=== PATIENT | male | born 1950 | race Caucasian/White ===

== ENCOUNTER 2023-06-02 09:45 | Outpatient (RCR) | payer MEDICARE, OTHER, SELFPAY ==
[2023-05-19 10:19] VITALS: BP 169/68; PULSE 92; RESP 18; TEMP 36.2; BMI 22.1
--- NOTE | 2023-05-19 14:38 | PCM.WC.HP ---
History of Present Illness Date of Service: 05/19/23 Chief Complaint: Bilateral lower extremity swelling and edema; profound bilateral lower extremity exfoliative venous stasis dermatitis History of Wound: This is a 72-year-old male who presents with a long history of swelling and edema in his lower extremities. He has developed severe exfoliative venous stasis dermatitis in his lower extremities bilaterally. Sloughing epidermis is noted in the gaiter areas bilaterally. There is disagreement between the patient and his as to how long these profound skin changes have been occurring, though it appears to be of at least several months. Patient is not active. He sleeps in a chair at night. He has a known history of pulmonary embolism in the past, for which she was on long-term systemic anticoagulation therapy with Eliquis. However, he now remains only on aspirin daily. He has undergone no prior lower extremity venous procedures in the past. [facility] Medical History Edema of left lower leg Edema of right lower leg GERD (gastroesophageal reflux disease) Hemoptysis History of pulmonary embolism History of tobacco use HTN (hypertension) Hyperlipidemia Lung mass Morbid obesity Osteoarthritis Pneumonia Pulmonary emboli SOB (shortness of breath) Spinal stenosis Swelling of left lower extremity Swelling of right lower extremity Venous stasis dermatitis of both lower extremities Home Medications albuterol sulfate 90 mcg/actuation aerosol inhaler 1 - 2 puff inhalation Q4H PRN PRN Sob &/Or Wheezing 12/29/16 [History Last Taken Unknown] aspirin 81 mg chewable tablet 81 mg PO DAILY 12/29/16 [History Last Taken 12/29/16] dicyclomine 20 mg tablet 10 mg PO QHS 12/29/16 [History Last Taken 12/29/16] zisjntek-wbf-sbvfr acid 0.4 mg-lycopene 300 mcg-lutein 250 mcg tablet 1 ea PO DAILY 12/29/16 [History Last Taken 12/29/16] oxycodone 15 mg tablet,crush resistant,extended release 12 hr 15 mg PO Q8H 12/29/16 [History Last Taken 12/29/16] gabapentin 300 mg capsule 300 mg PO TID 12/31/16 [Rx Last Taken Unknown] benazepril 40 mg tablet 40 mg PO DAILY 05/19/23 [History Last Taken Unknown] chlorthalidone 25 mg tablet 25 mg PO DAILY 05/19/23 [History Last Taken Unknown] Allergy/AdvReac Type Severity Reaction Status Date / Time morphine [From Embeda] Allergy Other Verified 05/19/23 12:53 naltrexone [From Embeda] Allergy Other Verified 05/19/23 12:53 pregabalin [From Lyrica] Allergy Unknown Verified 05/19/23 12:53 acetaminophen [From Percocet] AdvReac Upset Verified 05/19/23 12:53 Stomach oxycodone [From Percocet] AdvReac Upset Verified 05/19/23 12:53 Stomach Family History Unknown No problems noted. Surgical History H/O hernia repair History of appendectomy History of bilateral inguinal hernia repair History of right knee surgery R knee and leg surgery Social History Smoking Status: Former smoker quit date: 06/15/02 pack-years: 60 Electronic Cigarette Use: not used second hand exposure: Yes alcohol intake: never substance use type: does not use Vital Signs Vital Signs Vital Signs: 05/19/23 10:19 Temperature 97.1 F L Temperature Source Temporal Pulse Rate 92 Respiratory Rate 18 Blood Pressure 169/68 H Blood Pressure Mean 101 Blood Pressure Source Monitor Blood Pressure Position Sitting Blood Pressure Location Left Arm Oxygen Delivery Method Room Air Weight Weight: 129 lb Body Mass Index (BMI) 22.1 Physical Exam Const alert, oriented x3, no apparent distress and average body habitus General Appearance: cooperative, comfortable, well developed and disheveled Orientation / Consciousness: awake, oriented to person, oriented to place and oriented to time HEENT normocephalic and head/scalp atraumatic Head and Scalp: normal to inspection, normocephalic and atraumatic External Ear: external ears normal Eyes PERRL and EOMs intact bilaterally General Eye: normal appearance of both eyes Resp normal respiratory effort, normal air movement, no retractions and no use of accessory muscles Effort and Inspection: able to speak in complete sentences Extremity no calf tenderness General Extremity: Negative for clubbing or cyanosis Skin Wound Narrative: There are no frankly open wounds or ulcerations in the patient's lower extremities. However, severe exfoliative venous stasis dermatitis is noted in the gaiter areas bilaterally. Large areas of sloughing epidermis are noted in the gaiter areas bilaterally. Moderate swelling and edema are also noted in the lower extremities bilaterally. There is no sign of infection or cellulitis. Toenails are overgrown Neuro oriented x3, CN's II-XII intact bilaterally, moves all extremities and no focal motor deficits Sensorium / Orientation: awake, alert, oriented to person, oriented to place and oriented to time Psych Appearance: grossly normal and appropriate Attitude: calm Activity / Motor Behavior: appropriate eye contact Speech: normal speech Mood & Affect: euthymic mood Thought Process: normal thought process Thought Content: normal thought content Attention / Concentration: attention grossly intact Debridement Note Debridement Note No debridement was completed: No debridement was completed today Post-Debridement Measurements and Additional Note: Post-Debridement Measurements/Treatment - Nurse 1 - General Ulcer Assessment Start: 05/19/23 10:19 Freq: Status: Active Protocol: ASIM.DEE DEE Activity Type Activity Date Activity User E-sign Co-sign Detail Recorded Client Recorded Date Recorded By Document 05/19/23 10:19 Desktop 05/19/23 10:46 05/19/23 10:19 - Today's Visit Information Type of service Initial Visit Arrival Mode Ambulatory Transfer Assistance None Accompanied by Patient Identification Verified (Name & Yes ) Patient Requires Transmission-Based No Precautions Safety Precautions NA Height and Weight Height 5 ft 4 in Weight 129 lb Weight in Pounds 129.0 lbs Weight Measurement Method Stated by Patient Body Mass Index (BMI) 22.1 BMI Classification Normal BSA - Efren 1.62 Vital Signs Temperature (97.8 F-99.1 F) 97.1 F L Temperature Source Temporal Pulse Rate (60-100) 92 Pulse Location Monitor Respiratory Rate (12-18) 18 Respiratory rate source Observation Oxygen Delivery Method Room Air Blood Pressure (90/60-120/80) 169/68 H Blood Pressure Mean 101 Source Monitor Position Sitting Blood Pressure Location Left Arm History Since Last Visit- (Skip if this is Patient's initial visit) Left Footwear Regular Shoe Right Footwear Regular Shoe Pain Scale: 0-10 Numeric Is Patient Pain Free? Yes Neuropathy Assessment Feet - Top Side and Bottom <Entered> (a) Communication Assessment Preferred language Bulgarian Able to Read Yes Able to Write Yes Communication Tools None Right Hearing Abillity Normal Left Hearing Abillity Normal Visual Assistive Devices Glasses Teaching Assessment Preferences Verbal,Written Barriers to Learning Knowledge Deficit Readiness To Learn Poor Willingness to Engage in Self Management Low Activies Readiness to Engage in Self Management Low Activities Anxiety Level Anxious Cooperation Uncooperative Perception Coherent Interest in Health Problem Uninterested Education Importance Denies Need Smoking Status Former smoker Is Patient Diabetic No Functional Assessment Recent Decline in Ability to Perform Denies Any Declines Culture/Synagogue/Transportation Sales Consultant Cultural/Synagogue Needs that may affect No Treatment Plan Would you allow our hospital customer service operator to No meet you for the purpose of spiritual/ emotional support? Transportation Sales Consultant to contact place of scientology No Teaching: Wound Center *Welcome to the Wound Center -Person Taught Patient (a) 1 - + WC - Nurse 1 - General Ulcer Measurement Start: 05/19/23 10:19 Freq: Status: Active Protocol: Activity Type Activity Date Activity User E-sign Co-sign Detail Recorded Client Recorded Date Recorded By Document 05/19/23 10:19 MW Desktop 05/19/23 10:46 MW 05/19/23 10:19 Wound Center Nurse 1 #2 LLE -Current Size (cm) - Length 0.1 -Current Size (cm) - Width 0.1 -Current Size (cm) - Depth 0.1 -Total Square Cm 0.01 -Photo Taken Yes -Exudate Amt Medium -Exudate Type Serosanguineous -Wound Margin Indistinct, Non -Visible -Granulation Amt Medium (34-66%) -Granulation Quality Crouse,Red -Necrosis Amt Medium (34-66%) -Necrotic Tissue Type Adherent Slough -Structure Exposed N/A -Texture (Peggy-wound Skin Appearance) Scarring -Moisture (Peggy-wound Skin Appearance) Dry/Scaly -Color (Peggy-wound Skin Appearance) Hemosiderin Staining -Temperature (Peggy-wound Skin No Abnormality Appearance) (Pt Warm) -Tenderness on Palpation (Peggy-wound No Skin Appearance) -Ulcer Cleansing Soap and Water -Foul Odor after Cleansing No #1 RLE -Current Size (cm) - Length 0.1 -Current Size (cm) - Width 0.1 -Current Size (cm) - Depth 0.1 -Total Square Cm 0.01 -Photo Taken Yes -Exudate Amt Medium -Exudate Type Serosanguineous -Wound Margin Indistinct, Non -Visible -Granulation Amt Medium (34-66%) -Granulation Quality Crouse,Red -Necrosis Amt Medium (34-66%) -Necrotic Tissue Type Adherent Slough -Texture (Peggy-wound Skin Appearance) Scarring -Moisture (Peggy-wound Skin Appearance) Dry/Scaly -Color (Peggy-wound Skin Appearance) Erythema, Hemosiderin Staining -Temperature (Peggy-wound Skin No Abnormality Appearance) (Pt Warm) -Ulcer Cleansing Soap and Water -Foul Odor after Cleansing No Right Calf (cm) 38.5 Right Ankle (cm) 26 Left Calf (cm) 37 Left Ankle (cm) 27.5 WC - Nurse 3 - General Ulcer D/C NN Start: 05/19/23 10:19 Freq: Status: Active Protocol: Activity Type Activity Date Activity User E-sign Co-sign Detail Recorded Client Recorded Date Recorded By Document 05/19/23 11:22 MW Desktop 05/19/23 11:24 MW Edit Result 05/19/23 11:22 MW (1) Desktop 05/19/23 11:30 MW (1) Notes: => Unna Boots applied per Daniela [place] WORK TICKET DISTRIBUTOR. Patient tolerated well. 05/19/23 11:22 Wound Care Center Nurse 3 #2 LLE -Other Covering unna boot #1 RLE -Other Covering unna boot Bilateral LE -Lotion applied to leg before No compression wrap -Multi-Layered Wrap Application Unna Boot - Bilateral ($) Treatment Response Procedure Tolerated Well Pain Scale: 0-10 Numeric Is Patient Pain Free? Yes Teaching: Wound Center Compression Wraps & Stockings -Person Taught Patient,Family -Teaching Method Discussion, Demonstration -Response to teaching Verbalize understanding Dressing Your Wound -Person Taught Patient,Family -Teaching Method Discussion, Demonstration -Response to teaching Verbalize understanding WC - Visit Discharge Discharge Condition Stable Ambulatory Status Ambulatory,Cane Transportation Private Auto Accompanied by Medication Reconcilliation completed & No provided to patient/care provider Clinical Summary of Care Provided Yes Notes: Unna Boots applied per Daniela [place] WORK TICKET DISTRIBUTOR. Patient tolerated well. Assessment/Plan Assessment/Plan (1) Venous stasis dermatitis of both lower extremities: CODE(S): I87.2 - Venous insufficiency (chronic) (peripheral) (2) Swelling of right lower extremity: CODE(S): M79.89 - Other specified soft tissue disorders (3) Swelling of left lower extremity: CODE(S): M79.89 - Other specified soft tissue disorders (4) Edema of right lower leg: CODE(S): R60.0 - Localized edema (5) Edema of left lower leg: CODE(S): R60.0 - Localized edema (6) HTN (hypertension): CODE(S): I10 - Essential (primary) hypertension (7) History of tobacco use: CODE(S): Z87.891 - Personal history of nicotine dependence (8) History of pulmonary embolism: CODE(S): Z86.711 - Personal history of pulmonary embolism (9) History of bilateral inguinal hernia repair: CODE(S): Z98.890 - Other specified postprocedural states; Z87.19 - Personal history of other diseases of the digestive system (10) History of right knee surgery: CODE(S): Z98.890 - Other specified postprocedural states (11) Osteoarthritis: CODE(S): M19.90 - Unspecified osteoarthritis, unspecified site (12) GERD (gastroesophageal reflux disease): CODE(S): K21.9 - Gastro-esophageal reflux disease without esophagitis (13) Hyperlipidemia: CODE(S): E78.5 - Hyperlipidemia, unspecified (14) Spinal stenosis: CODE(S): M48.00 - Spinal stenosis, site unspecified PLAN: Plan This is a 72-year-old male who is of relatively normal body habitus. The patient presents with severe exfoliative venous stasis dermatitis in the gaiter areas bilaterally. There do not appear to be any frankly open wounds or ulcerations at this time. Moderate swelling and edema are noted in the lower extremities bilaterally. A lengthy discussion has been undertaken with the patient and his with regard to the appropriate measures to be implemented relative to his lower extremity manifestations. The patient has been encouraged to sleep on a flat surface at night. Sleeping in a chair has been discouraged. Prolonged idle sitting has been discouraged. The patient has been encouraged to elevate his lower extremities is much as possible, even during daytime hours. Elevation is to be to heart level, or higher. Ambulation and activity has been encouraged. We are to implement compression to the lower extremities by means of Unna boots, which we applied today, and changed twice weekly. It is anticipated that both the compression and the topical zinc oxide will be of benefit in management of the patient's swelling, edema, and exfoliative dermatitis. The patient is somewhat resistant and obstinate with regard to the use of compression in his lower extremities, as well as the need for leg elevation. It is anticipated that the benefits of these measures will be dependent upon his degree of compliance. The patient is to return in 1 week for reassessment. Total time: 50 minutes
[2023-05-22 08:44] VITALS: BP 178/61; PULSE 74; RESP 18; TEMP 36.3; BMI 22.1
[2023-05-26 09:59] VITALS: BP 178/80; PULSE 80; BMI 22.1
--- NOTE | 2023-05-26 10:46 | HP.PCM_ITS ---
History of Present Illness Date of Service: 05/26/23 Chief Complaint: Bilateral lower extremity swelling and edema; lymphedema; profound bilateral lower extremity exfoliative venous stasis dermatitis History of Wound: This is a 72-year-old male who presented with a long history of swelling, edema, and lymphedema in his lower extremities. He has developed severe exfoliative venous stasis dermatitis in his lower extremities bilaterally. Sloughing epidermis was noted in the gaiter areas bilaterally. There is disagreement between the patient and his as to how long these profound skin changes have been occurring, though it appears to be of at least several months. The patient is not active. His ambulation is limited, and he requires the use of a cane. He sleeps in a chair at night. He has a known history of pulmonary embolism in the past, for which she was on long-term systemic anticoagulation therapy with Eliquis. However, he now remains only on aspirin daily. He has undergone no prior lower extremity venous procedures in the past. [facility] Medical History Edema of left lower leg Edema of right lower leg GERD (gastroesophageal reflux disease) Hemoptysis History of pulmonary embolism History of tobacco use HTN (hypertension) Hyperlipidemia Lung mass Lymphedema Morbid obesity Osteoarthritis Pneumonia Pulmonary emboli SOB (shortness of breath) Spinal stenosis Swelling of left lower extremity Swelling of right lower extremity Venous stasis dermatitis of both lower extremities Home Medications albuterol sulfate 90 mcg/actuation aerosol inhaler 1 - 2 puff inhalation Q4H PRN PRN Sob &/Or Wheezing 12/29/16 [History Last Taken Unknown] aspirin 81 mg chewable tablet 81 mg PO DAILY 12/29/16 [History Last Taken 12/29/16] dicyclomine 20 mg tablet 10 mg PO QHS 12/29/16 [History Last Taken 12/29/16] kpykkilj-rex-wjlli acid 0.4 mg-lycopene 300 mcg-lutein 250 mcg tablet 1 ea PO DAILY 12/29/16 [History Last Taken 12/29/16] oxycodone 15 mg tablet,crush resistant,extended release 12 hr 15 mg PO Q8H 12/29/16 [History Last Taken 12/29/16] gabapentin 300 mg capsule 300 mg PO TID 12/31/16 [Rx Last Taken Unknown] benazepril 40 mg tablet 40 mg PO DAILY 05/19/23 [History Last Taken Unknown] chlorthalidone 25 mg tablet 25 mg PO DAILY 05/19/23 [History Last Taken Unknown] Allergy/AdvReac Type Severity Reaction Status Date / Time morphine [From Embeda] Allergy Other Verified 05/19/23 12:53 naltrexone [From Embeda] Allergy Other Verified 05/19/23 12:53 pregabalin [From Lyrica] Allergy Unknown Verified 05/19/23 12:53 acetaminophen [From Percocet] AdvReac Upset Verified 05/19/23 12:53 Stomach oxycodone [From Percocet] AdvReac Upset Verified 05/19/23 12:53 Stomach Family History Unknown No problems noted. Surgical History H/O hernia repair History of appendectomy History of bilateral inguinal hernia repair History of right knee surgery R knee and leg surgery Social History Smoking Status: Former smoker quit date: 06/15/02 pack-years: 60 Electronic Cigarette Use: not used second hand exposure: Yes alcohol intake: never substance use type: does not use Vital Signs Vital Signs Vital Signs: 05/26/23 09:59 Pulse Rate 80 Blood Pressure 178/80 H Blood Pressure Mean 112 Blood Pressure Source Monitor Blood Pressure Position Sitting Blood Pressure Location Left Arm Weight Weight: 129 lb Body Mass Index (BMI) 22.1 Physical Exam Const alert, oriented x3, no apparent distress and average body habitus General Appearance: cooperative, comfortable, well developed and disheveled Orientation / Consciousness: awake, oriented to person, oriented to place and oriented to time HEENT normocephalic and head/scalp atraumatic Head and Scalp: normal to inspection, normocephalic and atraumatic External Ear: external ears normal Eyes PERRL and EOMs intact bilaterally General Eye: normal appearance of both eyes Resp normal respiratory effort, normal air movement, no retractions and no use of accessory muscles Effort and Inspection: able to speak in complete sentences Extremity no calf tenderness General Extremity: Negative for clubbing or cyanosis Skin Wound Narrative: There are no frankly open wounds or ulcerations in the patient's lower extremities. However, severe exfoliative venous stasis dermatitis is noted in the gaiter areas bilaterally. It has slightly improved within the last week. Large areas of sloughing epidermis are noted in the gaiter areas bilaterally. Moderate swelling, edema, and lymphedema are also noted in the lower extremities bilaterally. A mild diffuse erythema is noted in the gaiter areas bilaterally. This appears to be inflammatory in nature, rather than cellulitic. However, this will be monitored serially. Toenails are overgrown bilaterally. Neuro oriented x3, CN's II-XII intact bilaterally, moves all extremities and no focal motor deficits Sensorium / Orientation: awake, alert, oriented to person, oriented to place and oriented to time Psych Appearance: grossly normal and appropriate Attitude: calm Activity / Motor Behavior: appropriate eye contact Speech: normal speech Mood & Affect: euthymic mood Thought Process: normal thought process Thought Content: normal thought content Attention / Concentration: attention grossly intact Debridement Note Debridement Note No debridement was completed: No debridement was completed today (There are no open wounds or ulcerations.) Post-Debridement Measurements and Additional Note: Post-Debridement Measurements/Treatment - Nurse 1 - General Ulcer Assessment Start: 05/19/23 10:19 Freq: Status: Active Protocol: .DEE DEE Activity Type Activity Date Activity User E-sign Co-sign Detail Recorded Client Recorded Date Recorded By Document 05/19/23 10:19 Desktop 05/19/23 10:46 MW Document 05/22/23 08:44 RB Desktop 05/22/23 08:47 RB Document 05/26/23 09:59 MT Desktop 05/26/23 10:01 FL 05/19/23 05/22/23 05/26/23 10:19 08:44 09:59 - Today's Visit Information Type of service Initial Visit Follow-up Visit Follow-up Visit (Physician/DIGITAL X RAY SERVICE ENGINEER (Physician/DIGITAL X RAY SERVICE ENGINEER ) ) Arrival Mode Ambulatory Ambulatory Ambulatory Transfer Assistance None None Accompanied by Patient Identification Verified (Name & Yes Yes ) Patient Requires Transmission-Based No No Precautions Safety Precautions NA Fall Prevention Height and Weight Height 5 ft 4 in Weight 129 lb Weight in Pounds 129.0 lbs Weight Measurement Method Stated by Patient Body Mass Index (BMI) 22.1 22.1 22.1 BMI Classification Normal Normal Normal BSA - Efren 1.62 Vital Signs Temperature (97.8 F-99.1 F) 97.1 F L 97.3 F L Temperature Source Temporal Temporal Pulse Rate (60-100) 92 74 80 Pulse Location Monitor Monitor Monitor Respiratory Rate (12-18) 18 18 Respiratory rate source Observation Observation Oxygen Delivery Method Room Air Blood Pressure (90/60-120/80) 169/68 H 178/61 H 178/80 H Blood Pressure Mean 101 100 112 Source Monitor Monitor Monitor Position Sitting Semi-Fowlers Sitting Blood Pressure Location Left Arm Left Arm Left Arm History Since Last Visit- (Skip if this is Patient's initial visit) Have you changed medications since your No last visit? Any new allergies or adverse reactions No Had a fall/change in ADL's that may No increase risk of falls Signs or symptoms of abuse and/or No neglect since last visit Have you been in the hospital since your No last visit? Has dressing in place as prescribed Yes Yes Has compression in place as prescribed Yes Yes Has offloadiing in place as prescribed No N/A Experienced any changes in pain level or No No management Left Footwear Regular Shoe Regular Shoe Right Footwear Regular Shoe Regular Shoe Pain Scale: 0-10 Numeric Is Patient Pain Free? Yes Yes Yes Neuropathy Assessment Feet - Top Side and Bottom <Entered> (a) Communication Assessment Preferred language Occitan Able to Read Yes Able to Write Yes Communication Tools None Right Hearing Abillity Normal Left Hearing Abillity Normal Visual Assistive Devices Glasses Teaching Assessment Preferences Verbal,Written Barriers to Learning Knowledge Deficit Readiness To Learn Poor Willingness to Engage in Self Management Low Activies Readiness to Engage in Self Management Low Activities Anxiety Level Anxious Cooperation Uncooperative Perception Coherent Interest in Health Problem Uninterested Education Importance Denies Need Smoking Status Former smoker Is Patient Diabetic No Functional Assessment Recent Decline in Ability to Perform Denies Any Declines Culture/Oriental Orthodox/Electric Tape Slitter Cultural/Oriental Orthodox Needs that may affect No Treatment Plan Would you allow our hospital registered travel nurse to No meet you for the purpose of spiritual/ emotional support? Electric Tape Slitter to contact place of judaism No Teaching: Wound Center *Welcome to the Wound Center -Person Taught Patient (a) 1 - + WC - Nurse 1 - General Ulcer Measurement Start: 05/19/23 10:19 Freq: Status: Active Protocol: Activity Type Activity Date Activity User E-sign Co-sign Detail Recorded Client Recorded Date Recorded By Document 05/19/23 10:19 MW Desktop 05/19/23 10:46 MW Document 05/22/23 08:44 RB Desktop 05/22/23 08:47 RB Document 05/26/23 09:59 MT Desktop 05/26/23 10:01 MT 05/19/23 05/22/23 05/26/23 10:19 08:44 09:59 Wound Center Nurse 1 #2 LLE -Current Size (cm) - Length 0.1 0.1 -Current Size (cm) - Width 0.1 0.1 -Current Size (cm) - Depth 0.1 0.1 -Total Square Cm 0.01 0.01 -Photo Taken Yes No -Tunneling No -Undermining/Tunneling No -Circular Undermining No -Exudate Amt Medium Medium -Exudate Type Serosanguineous Serosanguineous -Wound Margin Indistinct, Non Flat & Intact -Visible -Granulation Amt Medium (34-66%) Large (67-100%) -Granulation Quality Irvona,Red Pale,Irvona -Necrosis Amt Medium (34-66%) Small (1-33%) -Necrotic Tissue Type Adherent Slough Adherent Slough -Structure Exposed N/A -Texture (Peggy-wound Skin Appearance) Scarring Assessed, Localized Edema -Moisture (Peggy-wound Skin Appearance) Dry/Scaly Assessed,Not Assessed, Maceration -Color (Peggy-wound Skin Appearance) Hemosiderin Assessed, Staining Erythema, Hemosiderin Staining -Temperature (Peggy-wound Skin No Abnormality Hot Appearance) (Pt Warm) -Tenderness on Palpation (Peggy-wound No No Skin Appearance) -Ulcer Cleansing Soap and Water Soap and Water -Foul Odor after Cleansing No No -Anesthetic Used 4% Lidocaine Solution -Wound Comment(s) lower legs are red bilat. Dr. Davis notified. #1 RLE -Current Size (cm) - Length 0.1 0.1 -Current Size (cm) - Width 0.1 0.1 -Current Size (cm) - Depth 0.1 0.1 -Total Square Cm 0.01 0.01 -Photo Taken Yes -Exudate Amt Medium -Exudate Type Serosanguineous -Wound Margin Indistinct, Non -Visible -Granulation Amt Medium (34-66%) -Granulation Quality Irvona,Red -Necrosis Amt Medium (34-66%) -Necrotic Tissue Type Adherent Slough -Texture (Peggy-wound Skin Appearance) Scarring Assessed, Localized Edema -Moisture (Peggy-wound Skin Appearance) Dry/Scaly Maceration -Color (Peggy-wound Skin Appearance) Erythema, Assessed, Hemosiderin Erythema, Staining Hemosiderin Staining -Temperature (Peggy-wound Skin No Abnormality No Abnormality Appearance) (Pt Warm) (Pt Warm) -Tenderness on Palpation (Peggy-wound No Skin Appearance) -Ulcer Cleansing Soap and Water Soap and Water -Foul Odor after Cleansing No No -Anesthetic Used 4% Lidocaine Solution Lower Limb Edema Present Yes Right Calf (cm) 38.5 37 36.5 Right Ankle (cm) 26 27 25 Left Calf (cm) 37 34 36 Left Ankle (cm) 27.5 26.5 28 WC - Nurse 3 - General Ulcer D/C NN Start: 05/19/23 10:19 Freq: Status: Active Protocol: Activity Type Activity Date Activity User E-sign Co-sign Detail Recorded Client Recorded Date Recorded By Document 05/19/23 11:22 MW Desktop 05/19/23 11:24 MW Edit Result 05/19/23 11:22 MW (1) Desktop 05/19/23 11:30 MW Document 05/22/23 08:44 RB Desktop 05/22/23 08:47 RB Document 05/26/23 10:24 MT Desktop 05/26/23 10:39 MT (1) Notes: => Unna Boots applied per Daniela Miles LPN. Patient tolerated well. 05/19/23 05/22/23 05/26/23 11:22 08:44 10:24 Wound Care Center Nurse 3 #2 LLE -Other Covering unna boot #1 RLE -Other Covering unna boot Bilateral LE -Lotion applied to leg before No compression wrap -Multi-Layered Wrap Application Unna Boot - Unna Boot - Unna Boot - Bilateral ($) Bilateral ($) Bilateral ($) Treatment Response Procedure Procedure Tolerated Well Tolerated Well Vital Signs Temperature (97.8 F-99.1 F) 97.3 F L Temperature Source Temporal Pulse Rate (60-100) 74 Pulse Location Monitor Respiratory Rate (12-18) 18 Respiratory rate source Observation Blood Pressure (90/60-120/80) 178/61 H Blood Pressure Mean 100 Source Monitor Position Semi-Fowlers Blood Pressure Location Left Arm Pain Scale: 0-10 Numeric Is Patient Pain Free? Yes Yes No Teaching: Wound Center Compression Wraps & Stockings -Person Taught Patient,Family -Teaching Method Discussion, Demonstration -Response to teaching Verbalize understanding Dressing Your Wound -Person Taught Patient,Family -Teaching Method Discussion, Demonstration -Response to teaching Verbalize understanding WC - Visit Discharge Discharge Condition Stable Stable Stable Ambulatory Status Ambulatory,Cane Ambulatory Ambulatory,Cane Transportation Private Auto Private Auto Accompanied by Medication Reconcilliation completed & No No No provided to patient/care provider Clinical Summary of Care Provided Yes Yes Yes Notes: Unna Boots pt understands applied per he needs to Daniela Barnstead ROTATING EQUIPMENT SPECIALIST. elevate legs. Patient tolerated well. Assessment/Plan Assessment/Plan (1) Venous stasis dermatitis of both lower extremities: CODE(S): I87.2 - Venous insufficiency (chronic) (peripheral) (2) Lymphedema: CODE(S): I89.0 - Lymphedema, not elsewhere classified (3) Swelling of right lower extremity: CODE(S): M79.89 - Other specified soft tissue disorders (4) Swelling of left lower extremity: CODE(S): M79.89 - Other specified soft tissue disorders (5) Edema of right lower leg: CODE(S): R60.0 - Localized edema (6) Edema of left lower leg: CODE(S): R60.0 - Localized edema (7) HTN (hypertension): CODE(S): I10 - Essential (primary) hypertension (8) History of tobacco use: CODE(S): Z87.891 - Personal history of nicotine dependence (9) History of pulmonary embolism: CODE(S): Z86.711 - Personal history of pulmonary embolism (10) History of bilateral inguinal hernia repair: CODE(S): Z98.890 - Other specified postprocedural states; Z87.19 - Personal history of other diseases of the digestive system (11) History of right knee surgery: CODE(S): Z98.890 - Other specified postprocedural states (12) Osteoarthritis: CODE(S): M19.90 - Unspecified osteoarthritis, unspecified site (13) GERD (gastroesophageal reflux disease): CODE(S): K21.9 - Gastro-esophageal reflux disease without esophagitis (14) Hyperlipidemia: CODE(S): E78.5 - Hyperlipidemia, unspecified (15) Spinal stenosis: CODE(S): M48.00 - Spinal stenosis, site unspecified PLAN: Plan This is a 72-year-old male who is of relatively normal body habitus. The patient presented with severe exfoliative venous stasis dermatitis in the gaiter areas bilaterally. There do not appear to be any frankly open wounds or ulcerations at this time. Moderate swelling, edema, and lymphedema are noted in the lower extremities bilaterally. A lengthy discussion has been undertaken with the patient and his with regard to the appropriate measures to be implemented relative to his lower extremity manifestations. The patient has been encouraged to sleep on a flat surface at night. Sleeping in a chair has been discouraged. Prolonged idle sitting has been discouraged. The patient has been encouraged to elevate his lower extremities is much as possible, even during daytime hours. Elevation is to be to heart level, or higher. Ambulation and activity has been encouraged. However, the patient's physical limitations preclude significant enhancement of his activity level. We are to continue compression to the lower extremities by means of Unna boots, which we applied today, and will be changed twice weekly. It is anticipated that both the compression and the topical zinc oxide will be of benefit in management of the patient's swelling, edema, lymphedema, and exfoliative dermatitis. The patient is somewhat resistant and obstinate with regard to the use of compression in his lower extremities, as well as the need for leg elevation. It is anticipated that the benefits of these measures will be dependent upon his degree of compliance. Given the patient's impaired ambulatory capacity, and his clinical manifestations, it is felt that the patient may be a candidate for pneumatic, mechanical compression garments. Efforts will be made to preauthorize and obtain such pneumatic, mechanical pumps for the patient's use. The patient is to return in 1 week for reassessment. Total time: 26 minutes
[2023-05-29 08:23] VITALS: BP 179/77; PULSE 99; RESP 16; TEMP 36.9; BMI 22.1
[2023-06-02 09:25] VITALS: BP 182/64; PULSE 92; RESP 18; TEMP 36.6; BMI 22.1
--- NOTE | 2023-06-02 10:09 | HP.PCM_ITS ---
History of Present Illness Date of Service: 06/02/23 Chief Complaint: Bilateral lower extremity swelling and edema; lymphedema; profound bilateral lower extremity exfoliative venous stasis dermatitis History of Wound: This is a 72-year-old male who presented with a long history of swelling, edema, and lymphedema in his lower extremities. He has developed severe exfoliative venous stasis dermatitis in his lower extremities bilaterally. Sloughing epidermis was noted in the gaiter areas bilaterally. There is disagreement between the patient and his as to how long these profound skin changes have been occurring, though it appears to be of at least several months. The patient is not active. His ambulation is limited, and he requires the use of a cane. He sleeps in a chair at night. He has a known history of pulmonary embolism in the past, for which she was on long-term systemic anticoagulation therapy with Eliquis. However, he now remains only on aspirin daily. He has undergone no prior lower extremity venous procedures in the past. [facility] Medical History Edema of left lower leg Edema of right lower leg GERD (gastroesophageal reflux disease) Hemoptysis History of pulmonary embolism History of tobacco use HTN (hypertension) Hyperlipidemia Lung mass Lymphedema Morbid obesity Osteoarthritis Pneumonia Pulmonary emboli SOB (shortness of breath) Spinal stenosis Swelling of left lower extremity Swelling of right lower extremity Venous stasis dermatitis of both lower extremities Home Medications albuterol sulfate 90 mcg/actuation aerosol inhaler 1 - 2 puff inhalation Q4H PRN PRN Sob &/Or Wheezing 12/29/16 [History Last Taken Unknown] aspirin 81 mg chewable tablet 81 mg PO DAILY 12/29/16 [History Last Taken 12/29/16] dicyclomine 20 mg tablet 10 mg PO QHS 12/29/16 [History Last Taken 12/29/16] byjvmfcj-jhh-bphbz acid 0.4 mg-lycopene 300 mcg-lutein 250 mcg tablet 1 ea PO DAILY 12/29/16 [History Last Taken 12/29/16] oxycodone 15 mg tablet,crush resistant,extended release 12 hr 15 mg PO Q8H 12/29/16 [History Last Taken 12/29/16] gabapentin 300 mg capsule 300 mg PO TID 12/31/16 [Rx Last Taken Unknown] benazepril 40 mg tablet 40 mg PO DAILY 05/19/23 [History Last Taken Unknown] chlorthalidone 25 mg tablet 25 mg PO DAILY 05/19/23 [History Last Taken Unknown] Allergy/AdvReac Type Severity Reaction Status Date / Time morphine [From Embeda] Allergy Other Verified 05/19/23 12:53 naltrexone [From Embeda] Allergy Other Verified 05/19/23 12:53 pregabalin [From Lyrica] Allergy Unknown Verified 05/19/23 12:53 acetaminophen [From Percocet] AdvReac Upset Verified 05/19/23 12:53 Stomach oxycodone [From Percocet] AdvReac Upset Verified 05/19/23 12:53 Stomach Family History Unknown No problems noted. Surgical History H/O hernia repair History of appendectomy History of bilateral inguinal hernia repair History of right knee surgery R knee and leg surgery Social History Smoking Status: Former smoker quit date: 06/15/02 pack-years: 60 Electronic Cigarette Use: not used second hand exposure: Yes alcohol intake: never substance use type: does not use Vital Signs Vital Signs Vital Signs: 06/02/23 09:25 Temperature 97.8 F Temperature Source Temporal Pulse Rate 92 Respiratory Rate 18 Blood Pressure 182/64 H Blood Pressure Mean 103 Blood Pressure Source Monitor Blood Pressure Position Semi-Fowlers Blood Pressure Location Left Arm Oxygen Delivery Method Room Air Weight Weight: 129 lb Body Mass Index (BMI) 22.1 Physical Exam Const alert, oriented x3, no apparent distress and average body habitus General Appearance: cooperative, comfortable, well developed and disheveled Orientation / Consciousness: awake, oriented to person, oriented to place and oriented to time HEENT normocephalic and head/scalp atraumatic Head and Scalp: normal to inspection, normocephalic and atraumatic External Ear: external ears normal Eyes PERRL and EOMs intact bilaterally General Eye: normal appearance of both eyes Resp normal respiratory effort, normal air movement, no retractions and no use of accessory muscles Effort and Inspection: able to speak in complete sentences Extremity no calf tenderness General Extremity: Negative for clubbing or cyanosis Skin Wound Narrative: There are no frankly open wounds or ulcerations in the patient's lower extremities. However, exfoliative venous stasis dermatitis is noted in the gaiter areas bilaterally. It has improved significantly within the last week. Scattered areas of sloughing epidermis are noted in the gaiter areas bilaterally. Slight swelling, edema, and lymphedema are also noted in the lower extremities bilaterally. A mild diffuse erythema is noted in the gaiter areas bilaterally. This appears to be inflammatory in nature, rather than cellulitic. Toenails are overgrown bilaterally. Neuro oriented x3, CN's II-XII intact bilaterally, moves all extremities and no focal motor deficits Sensorium / Orientation: awake, alert, oriented to person, oriented to place and oriented to time Psych Appearance: grossly normal and appropriate Attitude: calm Activity / Motor Behavior: appropriate eye contact Speech: normal speech Mood & Affect: euthymic mood Thought Process: normal thought process Thought Content: normal thought content Attention / Concentration: attention grossly intact Debridement Note Debridement Note No debridement was completed: No debridement was completed today (There are no open wounds or ulcerations.) Post-Debridement Measurements and Additional Note: Post-Debridement Measurements/Treatment - Nurse 1 - General Ulcer Assessment Start: 05/19/23 10:19 Freq: Status: Active Protocol: EDU Activity Type Activity Date Activity User E-sign Co-sign Detail Recorded Client Recorded Date Recorded By Document 05/19/23 10:19 MW Desktop 05/19/23 10:46 MW Document 05/22/23 08:44 RB Desktop 05/22/23 08:47 RB Document 05/26/23 09:59 MT Desktop 05/26/23 10:01 MT Document 05/29/23 08:23 BMF Desktop 05/29/23 08:48 BMF Document 06/02/23 09:25 KW Desktop 06/02/23 09:34 KW 05/19/23 05/22/23 05/26/23 10:19 08:44 09:59 - Today's Visit Information Type of service Initial Visit Follow-up Visit Follow-up Visit (Physician/SHADOWGRAPH OPERATOR (Physician/SHADOWGRAPH OPERATOR ) ) Arrival Mode Ambulatory Ambulatory Ambulatory Transfer Assistance None None Accompanied by Patient Identification Verified (Name & Yes Yes ) Patient Requires Transmission-Based No No Precautions Safety Precautions NA Fall Prevention Height and Weight Height 5 ft 4 in Weight 129 lb Weight in Pounds 129.0 lbs Weight Measurement Method Stated by Patient Body Mass Index (BMI) 22.1 22.1 22.1 BMI Classification Normal Normal Normal BSA - Efren 1.62 Vital Signs Temperature (97.8 F-99.1 F) 97.1 F L 97.3 F L Temperature Source Temporal Temporal Pulse Rate (60-100) 92 74 80 Pulse Location Monitor Monitor Monitor Respiratory Rate (12-18) 18 18 Respiratory rate source Observation Observation Oxygen Delivery Method Room Air Blood Pressure (90/60-120/80) 169/68 H 178/61 H 178/80 H Blood Pressure Mean 101 100 112 Source Monitor Monitor Monitor Position Sitting Semi-Fowlers Sitting Blood Pressure Location Left Arm Left Arm Left Arm History Since Last Visit- (Skip if this is Patient's initial visit) Have you changed medications since your No last visit? Any new allergies or adverse reactions No Had a fall/change in ADL's that may No increase risk of falls Signs or symptoms of abuse and/or No neglect since last visit Have you been in the hospital since your No last visit? Has dressing in place as prescribed Yes Yes Has compression in place as prescribed Yes Yes Has offloadiing in place as prescribed No N/A Experienced any changes in pain level or No No management Left Footwear Regular Shoe Regular Shoe Right Footwear Regular Shoe Regular Shoe Pain Scale: 0-10 Numeric Is Patient Pain Free? Yes Yes Yes Neuropathy Assessment Feet - Top Side and Bottom <Entered> (a) Communication Assessment Preferred language Swedish Able to Read Yes Able to Write Yes Communication Tools None Right Hearing Abillity Normal Left Hearing Abillity Normal Visual Assistive Devices Glasses Teaching Assessment Preferences Verbal,Written Barriers to Learning Knowledge Deficit Readiness To Learn Poor Willingness to Engage in Self Management Low Activies Readiness to Engage in Self Management Low Activities Anxiety Level Anxious Cooperation Uncooperative Perception Coherent Interest in Health Problem Uninterested Education Importance Denies Need Smoking Status Former smoker Is Patient Diabetic No Functional Assessment Recent Decline in Ability to Perform Denies Any Declines Culture/Hindu/Global Category Manager Cultural/Hindu Needs that may affect No Treatment Plan Would you allow our hospital gift officer to No meet you for the purpose of spiritual/ emotional support? Global Category Manager to contact place of jewish No Teaching: Wound Center *Welcome to the Wound Center -Person Taught Patient 05/29/23 06/02/23 08:23 09:25 WC - Today's Visit Information Type of service Follow-up Visit Follow-up Visit (Physician/SHADOWGRAPH OPERATOR (Physician/SHADOWGRAPH OPERATOR ) ) Arrival Mode Ambulatory,Cane Ambulatory,Cane Transfer Assistance None Accompanied by Patient Identification Verified (Name & Yes Yes ) Patient Requires Transmission-Based No Precautions Safety Precautions Height and Weight Height Weight Weight in Pounds Weight Measurement Method Body Mass Index (BMI) 22.1 22.1 BMI Classification Normal Normal BSA - Efren Vital Signs Temperature (97.8 F-99.1 F) 98.5 F 97.8 F Temperature Source Temporal Temporal Pulse Rate (60-100) 99 92 Pulse Location Monitor Monitor Respiratory Rate (12-18) 16 18 Respiratory rate source Observation Observation Oxygen Delivery Method Room Air Room Air Blood Pressure (90/60-120/80) 179/77 H 182/64 H Blood Pressure Mean 111 103 Source Monitor Monitor Position Sitting Semi-Fowlers Blood Pressure Location Left Forearm Left Arm History Since Last Visit- (Skip if this is Patient's initial visit) Have you changed medications since your No No last visit? Any new allergies or adverse reactions No No Had a fall/change in ADL's that may No No increase risk of falls Signs or symptoms of abuse and/or No No neglect since last visit Have you been in the hospital since your No No last visit? Has dressing in place as prescribed Yes Yes Has compression in place as prescribed Yes Yes Has offloadiing in place as prescribed N/A No Experienced any changes in pain level or No No management Left Footwear Regular Shoe Regular Shoe Right Footwear Regular Shoe Regular Shoe Pain Scale: 0-10 Numeric Is Patient Pain Free? Yes Yes Neuropathy Assessment Feet - Top Side and Bottom Communication Assessment Preferred language Able to Read Able to Write Communication Tools Right Hearing Abillity Left Hearing Abillity Visual Assistive Devices Teaching Assessment Preferences Barriers to Learning Readiness To Learn Willingness to Engage in Self Management Activies Readiness to Engage in Self Management Activities Anxiety Level Cooperation Perception Interest in Health Problem Education Importance Smoking Status Is Patient Diabetic Functional Assessment Recent Decline in Ability to Perform Culture/Hindu/Global Category Manager Cultural/Hindu Needs that may affect Treatment Plan Would you allow our hospital gift officer to meet you for the purpose of spiritual/ emotional support? Global Category Manager to contact place of jewish Teaching: Wound Center *Welcome to the Wound Center -Person Taught (a) 1 - + WC - Nurse 1 - General Ulcer Measurement Start: 05/19/23 10:19 Freq: Status: Active Protocol: Activity Type Activity Date Activity User E-sign Co-sign Detail Recorded Client Recorded Date Recorded By Document 05/19/23 10:19 MW Desktop 05/19/23 10:46 MW Document 05/22/23 08:44 RB Desktop 05/22/23 08:47 RB Document 05/26/23 09:59 MT Desktop 05/26/23 10:01 MT Document 06/02/23 09:25 KW Desktop 06/02/23 09:34 KW 05/19/23 05/22/23 05/26/23 10:19 08:44 09:59 Wound Center Nurse 1 #2 LLE -Current Size (cm) - Length 0.1 0.1 -Current Size (cm) - Width 0.1 0.1 -Current Size (cm) - Depth 0.1 0.1 -Total Square Cm 0.01 0.01 -Photo Taken Yes No -Tunneling No -Undermining/Tunneling No -Circular Undermining No -Exudate Amt Medium Medium -Exudate Type Serosanguineous Serosanguineous -Wound Margin Indistinct, Non Flat & Intact -Visible -Granulation Amt Medium (34-66%) Large (67-100%) -Granulation Quality Cantu Addition,Red Pale,Cantu Addition -Necrosis Amt Medium (34-66%) Small (1-33%) -Necrotic Tissue Type Adherent Slough Adherent Slough -Structure Exposed N/A -Texture (Peggy-wound Skin Appearance) Scarring Assessed, Localized Edema -Moisture (Peggy-wound Skin Appearance) Dry/Scaly Assessed,Not Assessed, Maceration -Color (Peggy-wound Skin Appearance) Hemosiderin Assessed, Staining Erythema, Hemosiderin Staining -Temperature (Peggy-wound Skin No Abnormality Hot Appearance) (Pt Warm) -Tenderness on Palpation (Peggy-wound No No Skin Appearance) -Ulcer Cleansing Soap and Water Soap and Water -Foul Odor after Cleansing No No -Anesthetic Used 4% Lidocaine Solution -Wound Comment(s) lower legs are red bilat. Dr. Davis notified. #1 RLE -Current Size (cm) - Length 0.1 0.1 -Current Size (cm) - Width 0.1 0.1 -Current Size (cm) - Depth 0.1 0.1 -Total Square Cm 0.01 0.01 -Photo Taken Yes -Exudate Amt Medium -Exudate Type Serosanguineous -Wound Margin Indistinct, Non -Visible -Granulation Amt Medium (34-66%) -Granulation Quality Cantu Addition,Red -Necrosis Amt Medium (34-66%) -Necrotic Tissue Type Adherent Slough -Texture (Peggy-wound Skin Appearance) Scarring Assessed, Localized Edema -Moisture (Peggy-wound Skin Appearance) Dry/Scaly Maceration -Color (Peggy-wound Skin Appearance) Erythema, Assessed, Hemosiderin Erythema, Staining Hemosiderin Staining -Temperature (Peggy-wound Skin No Abnormality No Abnormality Appearance) (Pt Warm) (Pt Warm) -Tenderness on Palpation (Peggy-wound No Skin Appearance) -Ulcer Cleansing Soap and Water Soap and Water -Foul Odor after Cleansing No No -Anesthetic Used 4% Lidocaine Solution -Wound Comment(s) Lower Limb Edema Present Yes Right Calf (cm) 38.5 37 36.5 Right Ankle (cm) 26 27 25 Left Calf (cm) 37 34 36 Left Ankle (cm) 27.5 26.5 28 06/02/23 09:25 Wound Center Nurse 1 #2 LLE -Current Size (cm) - Length -Current Size (cm) - Width -Current Size (cm) - Depth -Total Square Cm -Photo Taken -Tunneling -Undermining/Tunneling -Circular Undermining -Exudate Amt -Exudate Type -Wound Margin -Granulation Amt -Granulation Quality -Necrosis Amt -Necrotic Tissue Type -Structure Exposed -Texture (Peggy-wound Skin Appearance) -Moisture (Peggy-wound Skin Appearance) -Color (Peggy-wound Skin Appearance) -Temperature (Peggy-wound Skin Appearance) -Tenderness on Palpation (Peggy-wound Yes Skin Appearance) -Ulcer Cleansing Soap and Water -Foul Odor after Cleansing -Anesthetic Used -Wound Comment(s) SCABBED AND REDDENED, NO OPEN WOUNDS #1 RLE -Current Size (cm) - Length -Current Size (cm) - Width -Current Size (cm) - Depth -Total Square Cm -Photo Taken -Exudate Amt -Exudate Type -Wound Margin -Granulation Amt -Granulation Quality -Necrosis Amt -Necrotic Tissue Type -Texture (Peggy-wound Skin Appearance) -Moisture (Peggy-wound Skin Appearance) -Color (Peggy-wound Skin Appearance) -Temperature (Peggy-wound Skin Appearance) -Tenderness on Palpation (Peggy-wound Yes Skin Appearance) -Ulcer Cleansing Soap and Water -Foul Odor after Cleansing -Anesthetic Used -Wound Comment(s) SCABBED AND REDDENED, NO OPEN WOUNDS Lower Limb Edema Present Right Calf (cm) 36.8 Right Ankle (cm) 23.5 Left Calf (cm) 34.5 Left Ankle (cm) 23 WC - Nurse 3 - General Ulcer D/C NN Start: 05/19/23 10:19 Freq: Status: Active Protocol: Activity Type Activity Date Activity User E-sign Co-sign Detail Recorded Client Recorded Date Recorded By Document 05/19/23 11:22 MW Desktop 05/19/23 11:24 MW Edit Result 05/19/23 11:22 MW (1) Desktop 05/19/23 11:30 MW Document 05/22/23 08:44 RB Desktop 05/22/23 08:47 RB Document 05/26/23 10:24 MT Desktop 05/26/23 10:39 MT Document 05/29/23 08:23 BMF Desktop 05/29/23 08:48 BMF (1) Notes: => Unna Boots applied per Daniela Miles LPN. Patient tolerated well. 05/19/23 05/22/23 05/26/23 11:22 08:44 10:24 Wound Care Center Nurse 3 #2 LLE -Other Covering unna boot #1 RLE -Other Covering unna boot lle -Multi-Layered Wrap Application -Other Bilateral LE -Lotion applied to leg before No compression wrap -Multi-Layered Wrap Application Unna Boot - Unna Boot - Unna Boot - Bilateral ($) Bilateral ($) Bilateral ($) -Tubular Bandage -Size of Tubigrip Used -Size E ($) Treatment Response Procedure Procedure Tolerated Well Tolerated Well Vital Signs Temperature (97.8 F-99.1 F) 97.3 F L Temperature Source Temporal Pulse Rate (60-100) 74 Pulse Location Monitor Respiratory Rate (12-18) 18 Respiratory rate source Observation Oxygen Delivery Method Blood Pressure (90/60-120/80) 178/61 H Blood Pressure Mean 100 Source Monitor Position Semi-Fowlers Blood Pressure Location Left Arm Pain Scale: 0-10 Numeric Is Patient Pain Free? Yes Yes No Teaching: Wound Center Compression Wraps & Stockings -Person Taught Patient,Family -Teaching Method Discussion, Demonstration -Response to teaching Verbalize understanding Dressing Your Wound -Person Taught Patient,Family -Teaching Method Discussion, Demonstration -Response to teaching Verbalize understanding WC - Visit Discharge Discharge Condition Stable Stable Stable Ambulatory Status Ambulatory,Cane Ambulatory Ambulatory,Cane Transportation Private Auto Private Auto Accompanied by Medication Reconcilliation completed & No No No provided to patient/care provider Clinical Summary of Care Provided Yes Yes Yes Notes: Unna Boots pt understands applied per he needs to Daniela Miles MAGNETO SPECIALIST. elevate legs. Patient tolerated well. 05/29/23 08:23 Wound Care Center Nurse 3 #2 LLE -Other Covering #1 RLE -Other Covering lle -Multi-Layered Wrap Application Unna Boot - Left ($) -Other applied unna boot, then had to remove. pt complained was uncomfortable Bilateral LE -Lotion applied to leg before compression wrap -Multi-Layered Wrap Application -Tubular Bandage Single Layer -Size of Tubigrip Used Size E -Size E ($) 2 Treatment Response Procedure Tolerated Well Vital Signs Temperature (97.8 F-99.1 F) 98.5 F Temperature Source Temporal Pulse Rate (60-100) 99 Pulse Location Monitor Respiratory Rate (12-18) 16 Respiratory rate source Observation Oxygen Delivery Method Room Air Blood Pressure (90/60-120/80) 179/77 H Blood Pressure Mean 111 Source Monitor Position Sitting Blood Pressure Location Left Forearm Pain Scale: 0-10 Numeric Is Patient Pain Free? Yes Teaching: Wound Center Compression Wraps & Stockings -Person Taught -Teaching Method -Response to teaching Dressing Your Wound -Person Taught -Teaching Method -Response to teaching WC - Visit Discharge Discharge Condition Stable Ambulatory Status Ambulatory,Cane Transportation Private Auto Accompanied by Medication Reconcilliation completed & provided to patient/care provider Clinical Summary of Care Provided Notes: pt negative and rude to staff during visit. unable to tolerate reapplication of unnas (only able to wrap the left). was wrapped loosely per request, then removed at his insistence . this nurse updated CM and applied single layer size E tubis instead. Assessment/Plan Assessment/Plan (1) Venous stasis dermatitis of both lower extremities: CODE(S): I87.2 - Venous insufficiency (chronic) (peripheral) (2) Lymphedema: CODE(S): I89.0 - Lymphedema, not elsewhere classified (3) Swelling of right lower extremity: CODE(S): M79.89 - Other specified soft tissue disorders (4) Swelling of left lower extremity: CODE(S): M79.89 - Other specified soft tissue disorders (5) Edema of right lower leg: CODE(S): R60.0 - Localized edema (6) Edema of left lower leg: CODE(S): R60.0 - Localized edema (7) HTN (hypertension): CODE(S): I10 - Essential (primary) hypertension (8) History of tobacco use: CODE(S): Z87.891 - Personal history of nicotine dependence (9) History of pulmonary embolism: CODE(S): Z86.711 - Personal history of pulmonary embolism (10) History of bilateral inguinal hernia repair: CODE(S): Z98.890 - Other specified postprocedural states; Z87.19 - Personal history of other diseases of the digestive system (11) History of right knee surgery: CODE(S): Z98.890 - Other specified postprocedural states (12) Osteoarthritis: CODE(S): M19.90 - Unspecified osteoarthritis, unspecified site (13) GERD (gastroesophageal reflux disease): CODE(S): K21.9 - Gastro-esophageal reflux disease without esophagitis (14) Hyperlipidemia: CODE(S): E78.5 - Hyperlipidemia, unspecified (15) Spinal stenosis: CODE(S): M48.00 - Spinal stenosis, site unspecified PLAN: Plan This is a 72-year-old male who is of relatively normal body habitus. The patient presented with severe exfoliative venous stasis dermatitis in the gaiter areas bilaterally. There do not appear to be any frankly open wounds or ulcerations at this time. Moderate swelling, edema, and lymphedema are noted in the lower extremities bilaterally. A lengthy discussion has been undertaken with the patient and his with regard to the appropriate measures to be implemented relative to his lower extremity manifestations. The patient has been encouraged to sleep on a flat surface at night. Sleeping in a chair has been discouraged. Prolonged idle sitting has been discouraged. The patient has been encouraged to elevate his lower extremities is much as possible, even during daytime hours. Elevation is to be to heart level, or higher. Ambulation and activity has been encouraged. However, the patient's physical limitations preclude significant enhancement of his activity level. We are to continue compression to the lower extremities by means of graduated compression stockings of 15 to 20 mmHg compression. A prescription for such stockings has been provided. In the absence of any open wounds or ulcerations, the patient is to be discharged, and will follow-up henceforth on an as-needed basis. He has been urged to continue with the conservative measures which have been recently implemented. It has been recommended that the patient use a skin moisturizer such as AmLactin topically to the scaly dermatitis in the gaiter areas. There is a question as to whether the patient will be compliant with recommendations, as he has not been compliant with implemented measures to date. As has been explained to the patient and his , a failure to comply with the recommended measures will likely result in a recurrence of his presenting symptoms and manifestations. It is anticipated that the benefits of these measures will be dependent upon his degree of compliance. Given the patient's impaired ambulatory capacity, and his clinical manifestations, it is felt that the patient may be a candidate for pneumatic, mechanical compression garments. Efforts will be made to preauthorize and obtain such pneumatic, mechanical pumps for the patient's use. The patient will be discharged and follow-up as needed. Total time: 25 minutes
== END 2023-06-04 07:57 | disposition home or self-care (01) ==
LOC: WC 09:45
PROVIDERS: PCP Internal Medicine; Referring Provider Internal Medicine; Visit Provider Surgery
DX: I87.2 Venous insufficiency (chronic) (peripheral) (principal); K21.9 Gastro-esophageal reflux disease without esophagitis; I89.0 Lymphedema, not elsewhere classified; E78.5 Hyperlipidemia, unspecified; M48.00 Spinal stenosis, site unspecified; I10 Essential (primary) hypertension; Z79.01 Long term (current) use of anticoagulants; Z87.891 Personal history of nicotine dependence; M19.90 Unspecified osteoarthritis, unspecified site; R60.0 Localized edema; M79.89 Other specified soft tissue disorders; L30.9 Dermatitis, unspecified; Z86.711 Personal history of pulmonary embolism
CPT/HCPCS: 29580; 99213; G0463

== ENCOUNTER 2023-11-04 09:03 | Inpatient (IN) | payer MEDICARE, OTHER, SELFPAY ==
[2023-11-04] VITALS (7 sets, daily range): BP systolic 131–156; BP diastolic 59–94; PULSE 75–101; RESP 16–18; TEMP 36.6–37.1; O2SAT 93–98; BMI 22.6; BMI 21.8
--- NOTE | 2023-11-04 09:38 | CT_ITS ---
EXAM: CT HEAD WITHOUT INTRAVENOUS CONTRAST CLINICAL INDICATION: weakness- left leg TECHNIQUE: Multiple axial images were obtained of the head without intravenous contrast. This CT exam was performed using one or more of the following dose reduction techniques: automated exposure control, adjustment of the mA and/or kV according to patient size, and/or use of iterative reconstruction technique. COMPARISON: CT Head dated 06/02/2009 FINDINGS: BRAIN AND EXTRA-AXIAL SPACES: No hemorrhage or mass effect. No acute ischemia. Areas of diminished white matter density noted within both cerebral hemispheres suggestive of chronic microvascular change. Prominence of the cortical sulci and ventricles related to volume loss change. BONES/JOINTS: Normal calvarium. SINUSES: No acute sinusitis. MASTOID AIR CELLS: Normal. Clear. CT/Brain/Head without Contrast IMPRESSION: 1. No acute intracranial abnormality. 2. Senescent changes. Electronically Signed: Chris Royal MD at 10:41 EDT ,
--- NOTE | 2023-11-04 09:38 | RAD_ITS ---
EXAM: XR CHEST, 1 VIEW CLINICAL INDICATION: weakness TECHNIQUE: Frontal view of the chest. COMPARISON: XR Chest dated 12/30/2016 FINDINGS: LUNGS AND PLEURAL SPACES: Normal. No consolidation or edema. No pneumothorax. No effusion. HEART: Normal heart size. MEDIASTINUM: No mediastinal or hilar mass. BONES/JOINTS: Stable reverse S scoliosis of the spine. RAD/Chest 1 View (Portable) IMPRESSION: No acute cardiopulmonary abnormality. Electronically Signed: Chris Royal MD at 10:50 EDT ,
[2023-11-04 09:46] LABS: Bacteria 0 SEEN /hpf (None Seen); Mucous, Urine 0 SEEN /hpf (<or=2+); Squamous Epithelial Cells - UA 0 SEEN /hpf (0-5)
[2023-11-04 09:49] LABS: Color, Urine Yellow (Yellow); Glucose, Dipstick Normal (Normal); Ketone-Dipstick Negative (Negative); Leukocyte Esterase-Dipstick 25 /ul (Negative); Nitrite-Dipstick Negative (Negative); Occult Blood-Urine 250 /ul (Negative); Protein-Dipstick 30 mg/dl (Negative); Specific Gravity, Urine 1.015 (1.002-1.030); Urine Bilirubin Dipstick Negative (Negative); Urine Clarity Clear (Clear); Urine Urobilinogen Normal (Normal)
--- NOTE | 2023-11-04 09:53 | ED.VIS.FALL ---
HPI HPI - Fall History of Present Illness Chief Complaint: Fall Informant: patient and spouse/S.O. Narrative Narrative: Patient 73-year-old male with history of PE (no longer on anticoagulation), hypertension, venous stasis of the lower extremities, GERD, hyperlipidemia and spinal stenosis presenting with multiple falls and increased weakness. Does have a history of prior stroke remotely with no residual deficits and the symptom at that time with slurred speech. Patient has had increased falls over the past 3 to 4 days and states has had 6 falls. He denies any injuries with this falls and denies any his head. Feels that his whole body is weaker but specifically in the left lower extremity. also notes that he seems more twitchy. He lives at home with and normally only uses a cane as needed. Does not feel safe at home anymore per the . No report of any fever, chills, chest pain, shortness of breath, cough, nausea, vomiting, black or blood in stool, change in his bowel habits or skin changes. Has urinary frequency but attributes that to being on a water pill. No other complaints or concerns reported at this time. [facility] Medical History Lymphedema Spinal stenosis Hyperlipidemia GERD (gastroesophageal reflux disease) Osteoarthritis Venous stasis dermatitis of both lower extremities Edema of left lower leg Edema of right lower leg Swelling of left lower extremity Swelling of right lower extremity History of pulmonary embolism SOB (shortness of breath) Morbid obesity HTN (hypertension) Pneumonia History of tobacco use Lung mass Pulmonary emboli Hemoptysis Home Medications ?Medication ?Instructions ?Recorded ?Last Taken ?Type albuterol sulfate 90 mcg/actuation 1 - 2 puff inhalation Q4H PRN 12/29/16 Unknown History aerosol inhaler SHORTNESS OF BREATH/WHEEZING aspirin 81 mg chewable tablet 81 mg PO DAILY HEART HEALTH 12/29/16 11/03/23 History dicyclomine 20 mg tablet 10 mg PO BID PRN IRRITABLE BOWELS 12/29/16 11/03/23 History rqhdrwha-nyi-ghrvu acid 0.4 1 ea PO DAILY SUPPLEMENT 12/29/16 11/03/23 History mg-lycopene 300 mcg-lutein 250 mcg tablet oxycodone 15 mg tablet,crush 15 mg PO Q8H PAIN 12/29/16 11/03/23 History resistant,extended release 12 hr benazepril 40 mg tablet 40 mg PO DAILY BLOOD PRESSURE 05/19/23 11/03/23 History chlorthalidone 25 mg tablet 25 mg PO DAILY EDEMA 05/19/23 11/03/23 History gabapentin 300 mg capsule 300 mg PO 4X/DAY NEUROPATHY 11/04/23 11/03/23 History Allergy/AdvReac Type Severity Reaction Status Date / Time morphine (From Embeda) Allergy Other Verified 11/04/23 09:10 naltrexone (From Embeda) Allergy Other Verified 11/04/23 09:10 pregabalin (From Lyrica) Allergy Unknown Verified 11/04/23 09:10 acetaminophen (From Percocet) AdvReac Upset Verified 11/04/23 09:10 Stomach oxycodone (From Percocet) AdvReac Upset Verified 11/04/23 09:10 Stomach Family History Unknown No problems noted. Surgical History History of right knee surgery History of bilateral inguinal hernia repair R knee and leg surgery H/O hernia repair History of appendectomy Social History Smoking Status: Former smoker quit date: 06/15/02 pack-years: 60 Electronic Cigarette Use: not used second hand exposure: Yes alcohol intake: never substance use type: does not use ROS ROS ED Constitutional Constitutional ED: Denies chills or fever(s) Eyes Eyes: Denies blurry vision or change in vision ENT ENT ED: Denies sore throat Cardiovascular Cardiovascular: Denies chest pain or palpitations Respiratory/Chest Respiratory/Chest: Denies cough or dyspnea Gastrointestinal Gastrointestinal: Denies abdominal pain, melena, nausea or vomiting Genitourinary Genitourinary ED: Reports urinary frequency; Denies dysuria or hematuria Musculoskeletal Musculoskeletal: Denies arthralgias or myalgias Integumentary Reports other Details: Chronic skin changes to the bilateral lower legs?unchanged ; Denies rash Neurologic Neurologic: Reports weakness; Denies headache(s) or paresthesias Psychiatric Psychiatric: Denies anxiety Hematologic/Lymphatic Hematologic/Lymphatic: Denies easy bleeding or easy bruising EXAM Physical Exam Const Vital Signs: 11/04/23 09:04 11/04/23 10:12 Temperature 98.8 F Temperature Source Temporal Pulse Rate 75 Respiratory Rate 16 Respiratory Effort Normal Non-Labored Respiratory Depth Normal Respiratory Pattern Normal Blood Pressure 131/94 H Blood Pressure Mean 106 Pulse Ox 95 96 Oxygen Delivery Method Room Air Room Air Positive well nourished Constitutional Narrative: Unkept, no acute distress HEENT Reports normocephalic and TM's normal bilaterally atraumatic Eyes PERRL and EOMs intact bilaterally Eyes Narrative: No visual field cut appreciated Neck full ROM and supple General: Negative for tenderness Chest Wall inspection of chest normal and palpation of chest normal Resp normal respiratory effort and clear to auscultation bilaterally Cardio regular rate, regular rhythm and no murmurs GI non-tender GI Narrative: Mildly protuberant abdomen. Distention in the suprapubic region present Extremity Extremity Narrative: Chronic venous stasis changes of the bilateral lower legs. Overgrown toenails present. Dried blood noted at the right fifth toenail?patient states he stubbed his toe recently. No tenderness to palpation of the toe itself. Bilateral lower extremity edema, slightly more pronounced on the right (again chronic per patient) Neuro oriented x3, CN's II-XII intact bilaterally, moves all extremities and no sensory deficits noted Neuro Narrative: Weakness of the left lower extremity?cannot lift his leg off the bed completely. NIH equals 2 for left lower extremity weakness Edward Coma Scale: document GCS findings Spontaneous Obeys Commands Oriented 15 Sensorium / Orientation: alert Psych mental status grossly normal and thought process normal Skin Skin Narrative: Chronic skin changes and erythema to the bilateral lower extremities consistent with venous stasis dermatitis Trauma: Negative for abrasion MDM MDM MDM Narrative Medical decision making narrative: Patient evaluated for increased generalized weakness and multiple falls. Differential includes subacute stroke, deconditioning, worsening neuropathy, infection, urinary tract infection, urinary retention, debility, electrolyte abnormality, hyperammonemia and VIRY. Patient has multiple episodes of small-volume urination in the emergency room so a bladder scan is performed. Patient has over 600 cc in his bladder but is currently refusing Díaz catheter/straight catheter. Will continue to encourage this. Metabolic workup is performed as well as CT of the brain looking for cause of his weakness. He does not have any chest pain, shortness of breath or other cardiac symptoms at this time so do not think he requires a cardiac workup. His vital signs are normal. Will attempt ambulation once workup is back but suspect patient will require admission from a debility standpoint even if workup is negative. Patient is found to have an VIRY with a creatinine of 3.42. Most recent 6 creatinine in our system was from 2017 and it was normal at 0.71. Will presume this is an acute kidney injury. In addition his BUN is elevated at 70. Concerned that this could be mixture of prerenal and postrenal. Díaz catheter was placed secondary to urinary retention. Patient now agreeable. He is over 800 cc of urine out immediately. Bladder and renal ultrasound is ordered. No signs of infection. CT of the brain does not show any acute process. Chest x-ray reviewed by myself as well as radiology does not show any acute process. Patient will be admitted to medicine service for further management of his VIRY. He started on maintenance fluid at 150 cc an hour. I suspect his weakness is secondary to uremia, VIRY which is secondary to his urinary retention. Lab Data Attestation: I reviewed the patient's lab results. Labs: Laboratory Results - last 24 hr 11/04/23 11/04/23 09:10 10:05 WBC 9.0 RBC 3.15 L Hgb 9.2 L Hct 29.3 L MCV 93.0 MCH 29.2 MCHC 31.4 L RDW Std Deviation 59.1 H RDW Coeff of [place] 17.5 H Plt Count 170 MPV 11.1 Immature Gran % (Auto) 0.700 Neut % (Auto) 84.1 H Lymph % (Auto) 7.1 L [place] % (Auto) 7.0 Eos % (Auto) 0.7 Baso % (Auto) 0.4 Absolute Neuts (auto) 7.5 Absolute Lymphs (auto) 0.64 L Nucleated RBC % 0 Sodium 144 Potassium 4.4 Chloride 116 H Carbon Dioxide 20.0 L Anion Gap 8 BUN 70 H Creatinine 3.42 H Estim Creat Clear Calc 15.87 Est GFR (MDRD) Af Amer 23 L Est GFR (MDRD) Non-Af 19 L BUN/Creatinine Ratio 20.5 H Glucose 100 Calcium 8.7 Total Bilirubin 0.50 AST 17 ALT 14 L Alkaline Phosphatase 98 Ammonia 25.0 Total Creatine Kinase 112 Total Protein 8.0 Albumin 3.0 L Globulin 5.0 H Albumin/Globulin Ratio 0.6 L Urine Color Yellow Urine Clarity Clear Urine pH 5.0 Ur Specific [place] 1.015 Urine Protein 30 H Urine Glucose (UA) Normal Urine Ketones Negative Urine Occult Blood 250 H Urine Nitrite Negative Urine Bilirubin Negative Urine Urobilinogen Normal Ur Leukocyte Esterase 25 H Urine RBC 5-10 SEEN Urine WBC 0-5 SEEN Ur Squamous Epith Cells 0 SEEN Urine Bacteria 0 SEEN Urine Mucus 0 SEEN Radiography Diagnostic Testing: Clinical Impression(s) from Imaging Studies Brain CT 11/04/23 09:38 IMPRESSION: 1. No acute intracranial abnormality. 2. Senescent changes. Electronically Signed: Chris Royal MD at 10:41 EDT , Chest X-Ray 11/04/23 09:38 IMPRESSION: No acute cardiopulmonary abnormality. Electronically Signed: Chris Royal MD at 10:50 EDT , Renal Ultrasound 11/04/23 10:57 IMPRESSION: Mild bilateral hydronephrosis. Electronically Signed: Chris Royal MD at 12:27 EDT , Discharge Plan Dx/Rx/DC Orders Clinical Impression: VRIY (acute kidney injury), Acute urinary retention, Bilateral hydronephrosis, Falls frequently Disposition Disposition: Acute Care Hospital [facility] Discharge Date/Time: 11/04/23 11:54
[2023-11-04 10:17] LABS: Absolute Lymphocyte Count 0.64 X10^3/uL (0.83-4.51); Absolute Neutrophil Count 7.5 X10^3/uL (2.0-7.7); Basophil# 0.04 X10^3/uL; Basophil% 0.4 % (0-1); Eosinophil# 0.06 X10^3/uL; Eosinophils% 0.7 % (0-5); Hematocrit 29.3 % (40-54); Hemoglobin 9.2 g/dL (13.0-16.5); Lymphocyte # 0.64 X10^3/ul (0.83-4.51); Lymphocyte % 7.1 % (19-41); Mean Corp Hgb Conc 31.4 g/dL (32-36); Mean Corpuscular Hgb 29.2 pg (27.0-32.0); Mean Platelet Vol. 11.1 fl (6.2-12.0); Monocyte# 0.63 X10^3/uL; NRBC Flagged by Analyzer 0 % (0-5); Neutrophil # 7.54 X10^3/uL (2.7-7.7); Neutrophil % 84.1 % (47-70); Platelet Count 170 K/mm3 (150-450); RBC Distribution Width CV 17.5 % (11.6-14.6); RBC Distribution Width SD 59.1 fl (35.1-43.9); Red Blood Count 3.15 M/mm3 (4.6-6.2)
[2023-11-04 10:33] LABS: ALB/GLOB Ratio 0.6 RATIO (0.9-2.4); AST(SGOT) 17 U/L (15-37); Alanine Aminotransfer ALT/SGPT 14 U/L (16-61); Alkaline Phosphatase 98 U/L (45-117); Anion Gap 8 (5-15); BUN 70 mg/dL (7-18); BUN/Creat Ratio 20.5 RATIO (10-20); CPK Total, Creatine Kinase 112 U/L (39-308); Calcium,Total 8.7 mg/dL (8.5-10.1); Chloride 116 mmol/L (98-107); Creatinine, Serum 3.42 mg/dL (0.70-1.30); EST Glomerular Filtration Rate 19 mL/min (>60); Est Glom Filt Rate - Afr Amer 23 mL/min (>60); Estimated Creatinine Clearance 15.87 ml/min; Glucose 100 mg/dL (74-106); Potassium 4.4 mmol/L (3.5-5.1); Sodium Level 144 mmol/L (136-145)
[2023-11-04 10:56] LABS: Red Blood Cells-Urine 5-10 SEEN /hpf (0-5); White Blood Cells 0-5 SEEN /hpf (0-5)
--- NOTE | 2023-11-04 10:57 | US_ITS ---
EXAM: US RETROPERITONEAL LIMITED, RENAL CLINICAL INDICATION: VIRY, urinary retention TECHNIQUE: Limited grayscale and color Doppler sonographic evaluation of the retroperitoneum was performed. COMPARISON: No relevant prior studies available. FINDINGS: RIGHT KIDNEY: Right kidney measures 11.4 cm in length. Mild hydronephrosis. 2 small cysts noted within the lower pole of the left kidney. No follow-up indicated. No shadowing calculus. No perinephric collection is demonstrated. LEFT KIDNEY: Left kidney measures 11.6 cm in length. Mild hydronephrosis. BLADDER: Díaz catheter in place within a mildly distended urinary bladder. US/Kidney and Bladder IMPRESSION: Mild bilateral hydronephrosis. Electronically Signed: Chris Royal MD at 12:27 EDT ,
--- NOTE | 2023-11-04 11:02 | NURSING ---
DR SID GRANT
--- NOTE | 2023-11-04 11:05 | HP.PCM.HOS_ITS ---
HPI - General HPI Narrative WIL ZEE, is a 73 M who presents [facility] Medical History Lymphedema Spinal stenosis Hyperlipidemia GERD (gastroesophageal reflux disease) Osteoarthritis Venous stasis dermatitis of both lower extremities Edema of left lower leg Edema of right lower leg Swelling of left lower extremity Swelling of right lower extremity History of pulmonary embolism SOB (shortness of breath) Morbid obesity HTN (hypertension) Pneumonia History of tobacco use Lung mass Pulmonary emboli Hemoptysis Home Medications ?Medication ?Instructions ?Recorded ?Last Taken ?Type albuterol sulfate 90 mcg/actuation 1 - 2 puff inhalation Q4H PRN PRN 12/29/16 Unknown History aerosol inhaler Sob &/Or Wheezing aspirin 81 mg chewable tablet 81 mg PO DAILY 12/29/16 12/29/16 History dicyclomine 20 mg tablet 10 mg PO QHS 12/29/16 12/29/16 History qkcbhwij-wbi-grhwv acid 0.4 1 ea PO DAILY 12/29/16 12/29/16 History mg-lycopene 300 mcg-lutein 250 mcg tablet oxycodone 15 mg tablet,crush 15 mg PO Q8H 12/29/16 12/29/16 History resistant,extended release 12 hr gabapentin 300 mg capsule 300 mg PO TID 12/31/16 Unknown Rx benazepril 40 mg tablet 40 mg PO DAILY 05/19/23 Unknown History chlorthalidone 25 mg tablet 25 mg PO DAILY 05/19/23 Unknown History Allergy/AdvReac Type Severity Reaction Status Date / Time morphine (From Embeda) Allergy Other Verified 11/04/23 09:10 naltrexone (From Embeda) Allergy Other Verified 11/04/23 09:10 pregabalin (From Lyrica) Allergy Unknown Verified 11/04/23 09:10 acetaminophen (From Percocet) AdvReac Upset Verified 11/04/23 09:10 Stomach oxycodone (From Percocet) AdvReac Upset Verified 11/04/23 09:10 Stomach Family History Unknown No problems noted. Surgical History History of right knee surgery History of bilateral inguinal hernia repair R knee and leg surgery H/O hernia repair History of appendectomy Social History Smoking Status: Former smoker quit date: 06/15/02 pack-years: 60 Electronic Cigarette Use: not used second hand exposure: Yes alcohol intake: never substance use type: does not use Vital Signs Vital Signs Vital Signs: 11/04/23 09:04 11/04/23 10:12 Temperature 98.8 F Temperature Source Temporal Pulse Rate 75 Respiratory Rate 16 Respiratory Effort Normal Non-Labored Respiratory Depth Normal Respiratory Pattern Normal Blood Pressure 131/94 H Blood Pressure Mean 106 Pulse Ox 95 96 Oxygen Delivery Method Room Air Room Air Weight Weight: 60 kg Body Mass Index (BMI) 22.6 Results Lab / Micro Data 11/04/23 10:05 11/04/23 10:05 Labs: Laboratory Results - last 24 hr 11/04/23 09:10: Urine Color Yellow, Urine Clarity Clear, Urine pH 5.0, Ur Specific [place] 1.015, Urine Protein 30 H, Urine Glucose (UA) Normal, Urine Ketones Negative, Urine Occult Blood 250 H, Urine Nitrite Negative, Urine Bilirubin Negative, Urine Urobilinogen Normal, Ur Leukocyte Esterase 25 H, Urine RBC 5-10 SEEN, Urine WBC 0-5 SEEN, Ur Squamous Epith Cells 0 SEEN, Urine Bacteria 0 SEEN, Urine Mucus 0 SEEN 11/04/23 10:05: WBC 9.0, RBC 3.15 L, Hgb 9.2 L, Hct 29.3 L, MCV 93.0, MCH 29.2, MCHC 31.4 L, RDW Std Deviation 59.1 H, RDW Coeff of [place] 17.5 H, Plt Count 170, MPV 11.1, Immature Gran % (Auto) 0.700, Neut % (Auto) 84.1 H, Lymph % (Auto) 7.1 L, [place] % (Auto) 7.0, Eos % (Auto) 0.7, Baso % (Auto) 0.4, Absolute Neuts (auto) 7.5, Absolute Lymphs (auto) 0.64 L, Nucleated RBC % 0, Sodium 144, Potassium 4.4, Chloride 116 H, Carbon Dioxide 20.0 L, Anion Gap 8, BUN 70 H, Creatinine 3.42 H, Estim Creat Clear Calc 15.87, Est GFR (MDRD) Af Amer 23 L, Est GFR (MDRD) Non-Af 19 L, BUN/Creatinine Ratio 20.5 H, Glucose 100, Calcium 8.7, Total Bilirubin 0.50, AST 17, ALT 14 L, Alkaline Phosphatase 98, Ammonia 25.0, Total Creatine Kinase 112, Total Protein 8.0, Albumin 3.0 L, Globulin 5.0 H, A lbumin/Globulin Ratio 0.6 L Imaging Radiology Impression Brain CT 11/04/23 09:38 IMPRESSION: 1. No acute intracranial abnormality. 2. Senescent changes. Electronically Signed: Chris Royal MD at 10:41 EDT , Chest X-Ray 11/04/23 09:38 IMPRESSION: No acute cardiopulmonary abnormality. Electronically Signed: Chris Royal MD at 10:50 EDT ,
--- NOTE | 2023-11-04 11:05 | PCM.HP.STD ---
HPI - General General Date of Admission: 11/04/23 Date of Service: 11/04/23 Chief Complaint: Generalized weakness HPI Narrative WIL ZEE, is a 73 M who with past medical history signal for previous CVA with residual left-sided weakness who presented to the emergency department with progressive generalized weakness as well as recurrent falls. Patient was found to have impaired kidney function. Patient was also found to have urinary retention Díaz catheter was placed admitted to monitored bed for further management [facility] Medical History Lymphedema Spinal stenosis Hyperlipidemia GERD (gastroesophageal reflux disease) Osteoarthritis Venous stasis dermatitis of both lower extremities Edema of left lower leg Edema of right lower leg Swelling of left lower extremity Swelling of right lower extremity History of pulmonary embolism SOB (shortness of breath) Morbid obesity HTN (hypertension) Pneumonia History of tobacco use Lung mass Pulmonary emboli Hemoptysis Home Medications ?Medication ?Instructions ?Recorded ?Last Taken ?Type albuterol sulfate 90 mcg/actuation 1 - 2 puff inhalation Q4H PRN 12/29/16 Unknown History aerosol inhaler SHORTNESS OF BREATH/WHEEZING aspirin 81 mg chewable tablet 81 mg PO DAILY HEART HEALTH 12/29/16 11/03/23 History dicyclomine 20 mg tablet 10 mg PO BID PRN IRRITABLE BOWELS 12/29/16 11/03/23 History emecflvu-aal-rbvel acid 0.4 1 ea PO DAILY SUPPLEMENT 12/29/16 11/03/23 History mg-lycopene 300 mcg-lutein 250 mcg tablet oxycodone 15 mg tablet,crush 15 mg PO Q8H PAIN 12/29/16 11/03/23 History resistant,extended release 12 hr benazepril 40 mg tablet 40 mg PO DAILY BLOOD PRESSURE 05/19/23 11/03/23 History chlorthalidone 25 mg tablet 25 mg PO DAILY EDEMA 05/19/23 11/03/23 History gabapentin 300 mg capsule 300 mg PO 4X/DAY NEUROPATHY 11/04/23 11/03/23 History Allergy/AdvReac Type Severity Reaction Status Date / Time morphine (From Embeda) Allergy Other Verified 11/04/23 09:10 naltrexone (From Embeda) Allergy Other Verified 11/04/23 09:10 pregabalin (From Lyrica) Allergy Unknown Verified 11/04/23 09:10 acetaminophen (From Percocet) AdvReac Upset Verified 11/04/23 09:10 Stomach oxycodone (From Percocet) AdvReac Upset Verified 11/04/23 09:10 Stomach Family History Unknown No problems noted. Surgical History History of right knee surgery History of bilateral inguinal hernia repair R knee and leg surgery H/O hernia repair History of appendectomy Social History Smoking Status: Former smoker quit date: 06/15/02 pack-years: 60 Electronic Cigarette Use: not used second hand exposure: Yes alcohol intake: never substance use type: does not use ROS ROS Narrative GENERAL: denies fever, chills, night sweats, weight loss, anorexia HEENT: denies headache, sinus congestion, or drainage, dysphagia RESPIRATORY: denies cough, sputum production, shortness of breath, dyspnea on exertion CARDIAC: denies chest pain, palpitations, orthopnea, PND GASTROINTESTINAL: denies abdominal pain, nausea, vomiting, melena, GENITOURINARY: denies dysuria, urgency, frequency, heamaturia EXTREMITY: denies swelling MUSCULOSKELETAL: denies current joint pain or tenderness NEUROLOGIC: denies focal numbness, weakness, tingling HEMATOLOGIC: denies easy bruising and/or hemorrhage INTEGUMENT: denies rashes PSYCHIATRIC: denies suicidal or homicidal ideation Vital Signs Vital Signs Vital Signs: 11/04/23 09:04 11/04/23 10:12 Temperature 98.8 F Temperature Source Temporal Pulse Rate 75 Respiratory Rate 16 Respiratory Effort Normal Non-Labored Respiratory Depth Normal Respiratory Pattern Normal Blood Pressure 131/94 H Blood Pressure Mean 106 Pulse Ox 95 96 Oxygen Delivery Method Room Air Room Air Weight Weight: 60 kg Body Mass Index (BMI) 22.6 Physical Exam Narrative GENERAL: cooperative HEENT: Atraumatic; normocephalic EYES; Anicteric, Normal Conjunctiva NECK; supple, normal thyroid, RESPIRATORY: Diminished to auscultation CARDIOVASCULAR: Regular S1 S2, GI: soft, normoactive bowel sounds, : No Renal angle tenderness; EXTREMITIES: No edema, no clubbing, MUSCULOSKELETAL: no muscle wasting NEURO: Awake; no lateralizing signs. SKIN: No Rash PSYCH; Flat affect Results Lab / Micro Data 11/04/23 10:05 11/04/23 10:05 Labs: Laboratory Results - last 24 hr 11/04/23 09:10: Urine Color Yellow, Urine Clarity Clear, Urine pH 5.0, Ur Specific [place] 1.015, Urine Protein 30 H, Urine Glucose (UA) Normal, Urine Ketones Negative, Urine Occult Blood 250 H, Urine Nitrite Negative, Urine Bilirubin Negative, Urine Urobilinogen Normal, Ur Leukocyte Esterase 25 H, Urine RBC 5-10 SEEN, Urine WBC 0-5 SEEN, Ur Squamous Epith Cells 0 SEEN, Urine Bacteria 0 SEEN, Urine Mucus 0 SEEN 11/04/23 10:05: WBC 9.0, RBC 3.15 L, Hgb 9.2 L, Hct 29.3 L, MCV 93.0, MCH 29.2, MCHC 31.4 L, RDW Std Deviation 59.1 H, RDW Coeff of [place] 17.5 H, Plt Count 170, MPV 11.1, Immature Gran % (Auto) 0.700, Neut % (Auto) 84.1 H, Lymph % (Auto) 7.1 L, [place] % (Auto) 7.0, Eos % (Auto) 0.7, Baso % (Auto) 0.4, Absolute Neuts (auto) 7.5, Absolute Lymphs (auto) 0.64 L, Nucleated RBC % 0, Sodium 144, Potassium 4.4, Chloride 116 H, Carbon Dioxide 20.0 L, Anion Gap 8, BUN 70 H, Creatinine 3.42 H, Estim Creat Clear Calc 15.87, Est GFR (MDRD) Af Amer 23 L, Est GFR (MDRD) Non-Af 19 L, BUN/Creatinine Ratio 20.5 H, Glucose 100, Calcium 8.7, Total Bilirubin 0.50, AST 17, ALT 14 L, Alkaline Phosphatase 98, Ammonia 25.0, Total Creatine Kinase 112, Total Protein 8.0, Albumin 3.0 L, Globulin 5.0 H, Albumin/Globulin Ratio 0.6 L Imaging Radiology Impression Brain CT 11/04/23 09:38 IMPRESSION: 1. No acute intracranial abnormality. 2. Senescent changes. Electronically Signed: Chris Royal MD at 10:41 EDT Reading Location ID and State: [facility] / [place] Tel , Service support , Chest X-Ray 11/04/23 09:38 IMPRESSION: No acute cardiopulmonary abnormality. Electronically Signed: Chris Royal MD at 10:50 EDT , Assessment & Plan Assessment/Plan (1) VIRY (acute kidney injury): PLAN: Plan Patient is a 73-year-old gentleman presenting with progressive generalized weakness and recurrent falls. Found to have acute urinary retention with VIRY admitted to monitored bed for further management 1. Acute kidney injury ? Suspected to be secondary to obstructive uropathy. Díaz catheter was placed in the ED admitted to monitored bed. Subsequent evaluation with renal ultrasound demonstrated mild bilateral hydronephrosis. Patient was placed on Flomax. Response to therapy being monitored with daily BMPs 2. Recurrent falls ? Requested for PT OT eval and social sciences professor to assist with discharge planning 3. Previous CVA with residual left-sided weakness ? CT of the brain obtained on admission did not show any acute intracranial abnormality. Patient is on antiplatelet therapy with aspirin did continue 4. Hypertension ? Blood pressure controlled, home medications continued with dose adjustment as needed 5. Tobacco dependence ? Counseled on cessation, offered nicotine patch for tobacco cravings 6. Anemia ? Secondary to chronic disorder ordered iron studies as well as B12 levels. Monitoring H&H and transfuse if patient becomes symptomatic or hemoglobin falls below 7 7. Chronic pain syndrome ? Patient is on gabapentin as well as scheduled oxycodone continue 8. DVT prophylaxis ? SC heparin Time spent in the patient's overall evaluation,decision-making process, review of diagnostic data, adjustment of management, discussion with other providers, nursing nursing and ancillary staff involved in patient's care documentation, 75 Minutes Advance planning; did discuss with the patient and family (patient's ) regarding advanced directives as well as CODE STATUS. Did explain the various scenarios involved ( FULL CODE, DNR CCA, DNR CCA with no intubation, and DNR CC and what each meant) patient elected to remain full code with CPR and intubation if needed. Order was placed. Time spent on discussion 16 minutes. Charges/Coding Visit Charges Inpatient E&M: 54613 Init Hosp L3 Procedures Hospitalists Procedures: 72566 Advncd Care Plan 30 Min
--- NOTE | 2023-11-04 11:12 | NURSING ---
MED SURG KITTOE VIRY
[2023-11-04] MEDS: 0.9% Normal Saline (1000mL) 1,000 ML 150 ML IV (11:17)
[2023-11-04 12:50] LABS: CPK Total, Creatine Kinase 114 U/L (39-308)
[2023-11-04] MEDS: Lactated Ringers 1,000 ML 150 ML IV ×2 (13:02→20:05)
[2023-11-04] MEDS: Gabapentin 300 MG Capsule PO ×2 (13:02→20:51)
[2023-11-04] MEDS: Tamsulosin HCl 0.4 MG Capsule PO (13:02)
[2023-11-04] MEDS: Heparin Injection (Vial) 5,000 UNIT/ML VIAL 5000 UNIT SC ×2 (13:02→20:51)
[2023-11-04] MEDS: oxyCODONE CR 15 MG Tablet PO ×2 (13:03→20:51)
--- NOTE | 2023-11-04 14:42 | NURSING ---
Gave report to Sydnie AMIN
[2023-11-05 02:50] VITALS: BP 134/110; PULSE 75; RESP 18; TEMP 36.7; O2SAT 95
[2023-11-05] MEDS: Lactated Ringers 1,000 ML 150 ML IV ×2 (02:51→10:06)
[2023-11-05 03:42] VITALS: BMI 22.6
[2023-11-05] MEDS: Gabapentin 300 MG Capsule PO ×3 (05:21→22:09)
[2023-11-05] MEDS: oxyCODONE CR 15 MG Tablet PO ×3 (05:21→22:09)
[2023-11-05 06:55] LABS: Absolute Lymphocyte Count 1.05 X10^3/uL (0.83-4.51); Absolute Neutrophil Count 4.7 X10^3/uL (2.0-7.7); Basophil# 0.03 X10^3/uL; Basophil% 0.4 % (0-1); Eosinophil# 0.28 X10^3/uL; Eosinophils% 4.1 % (0-5); Hematocrit 27.1 % (40-54); Hemoglobin 8.2 g/dL (13.0-16.5); Lymphocyte # 1.05 X10^3/ul (0.83-4.51); Lymphocyte % 15.5 % (19-41); Mean Corp Hgb Conc 30.3 g/dL (32-36); Mean Corpuscular Hgb 28.7 pg (27.0-32.0); Mean Corpuscular Volume 94.8 fL (80-94); Mean Platelet Vol. 10.7 fl (6.2-12.0); Monocyte# 0.65 X10^3/uL; Monocyte% 9.6 % (0-10); NRBC Flagged by Analyzer 0 % (0-5); Neutrophil # 4.72 X10^3/uL (2.7-7.7); Platelet Count 149 K/mm3 (150-450); RBC Distribution Width CV 17.2 % (11.6-14.6); RBC Distribution Width SD 59.2 fl (35.1-43.9); Red Blood Count 2.86 M/mm3 (4.6-6.2); White Blood Count 6.8 K/mm3 (4.4-11.0)
[2023-11-05 07:29] LABS: Anion Gap 8 (5-15); BUN 53 mg/dL (7-18); BUN/Creat Ratio 18.9 RATIO (10-20); Calcium,Total 8.6 mg/dL (8.5-10.1); Chloride 117 mmol/L (98-107); Creatinine, Serum 2.81 mg/dL (0.70-1.30); EST Glomerular Filtration Rate 24 mL/min (>60); Est Glom Filt Rate - Afr Amer 29 mL/min (>60); Estimated Creatinine Clearance 18.56 ml/min; Glucose 101 mg/dL (74-106); Potassium 3.8 mmol/L (3.5-5.1); Sodium Level 145 mmol/L (136-145)
--- NOTE | 2023-11-05 07:41 | PCM.PN.HOSP ---
Reason for Visit Reason for Visit: Diagnoses Acute kidney failure, unspecified (11/04/23) Subjective Subjective Patient admitted to a monitored bed started on IV fluid no significant change in kidney function. Hemoglobin significantly down to 8.2 Objective Data Objective Data Vital Signs: Vital Signs Temp Pulse Resp BP Pulse Ox O2 Del Method 98.1 F 75 18 134/110 H 95 Room Air 11/05/23 02:50 11/05/23 02:50 11/05/23 02:50 11/05/23 02:50 11/05/23 02:50 11/05/23 02:53 Oxygen Delivery Method Room Air Weight: 57.9 kg Body Mass Index (BMI) 22.6 Intake & Output: Intake and Output for Last 24 Hours 11/03/23 11/04/23 11/05/23 23:59 23:59 23:59 Intake Total 1382.5 / 1382.5 1000 / 1000 Output Total 1070 / 1070 800 / 800 Balance 312.5 / 312.5 200 / 200 Lab / Micro Data 11/05/23 05:55 11/05/23 05:55 Labs: Laboratory Results - last 24 hr 11/04/23 09:10: Urine Color Yellow, Urine Clarity Clear, Urine pH 5.0, Ur Specific [place] 1.015, Urine Protein 30 H, Urine Glucose (UA) Normal, Urine Ketones Negative, Urine Occult Blood 250 H, Urine Nitrite Negative, Urine Bilirubin Negative, Urine Urobilinogen Normal, Ur Leukocyte Esterase 25 H, Urine RBC 5-10 SEEN, Urine WBC 0-5 SEEN, Ur Squamous Epith Cells 0 SEEN, Urine Bacteria 0 SEEN, Urine Mucus 0 SEEN 11/04/23 10:05: WBC 9.0, RBC 3.15 L, Hgb 9.2 L, Hct 29.3 L, MCV 93.0, MCH 29.2, MCHC 31.4 L, RDW Std Deviation 59.1 H, RDW Coeff of [place] 17.5 H, Plt Count 170, MPV 11.1, Immature Gran % (Auto) 0.700, Neut % (Auto) 84.1 H, Lymph % (Auto) 7.1 L, [place] % (Auto) 7.0, Eos % (Auto) 0.7, Baso % (Auto) 0.4, Absolute Neuts (auto) 7.5, Absolute Lymphs (auto) 0.64 L, Nucleated RBC % 0, Sodium 144, Potassium 4.4, Chloride 116 H, Carbon Dioxide 20.0 L, Anion Gap 8, BUN 70 H, Creatinine 3.42 H, Estim Creat Clear Calc 15.87, Est GFR (MDRD) Af Amer 23 L, Est GFR (MDRD) Non-Af 19 L, BUN/Creatinine Ratio 20.5 H, Glucose 100, Calcium 8.7, Total Bilirubin 0.50, AST 17, ALT 14 L, Alkaline Phosphatase 98, Ammonia 25.0, Total Creatine Kinase 112 11/04/23 10:05: Total Creatine Kinase 114, Total Protein 8.0, Albumin 3.0 L, Globulin 5.0 H, Albumin/Globulin Ratio 0.6 L 11/05/23 05:55: WBC 6.8, RBC 2.86 L, Hgb 8.2 L, Hct 27.1 L, MCV 94.8 H, MCH 28.7, MCHC 30.3 L, RDW Std Deviation 59.2 H, RDW Coeff of [place] 17.2 H, Plt Count 149 L, MPV 10.7, Immature Gran % (Auto) 0.400, Neut % (Auto) 70.0, Lymph % (Auto) 15.5 L, [place] % (Auto) 9.6, Eos % (Auto) 4.1, Baso % (Auto) 0.4, Absolute Neuts (auto) 4.7, Absolute Lymphs (auto) 1.05, Nucleated RBC % 0, Sodium 145, Potassium 3.8, Chloride 117 H, Carbon Dioxide 20.0 L, Anion Gap 8, BUN 53 H, Creatinine 2.81 H, Estim Creat Clear Calc 18.56, Est GFR (MDRD) Af Amer 29 L, Est GFR (MDRD) Non-Af 24 L, BUN/Creatinine Ratio 18.9, Glucose 101, Calcium 8.6 Radiography Diagnostic Testing: Radiology Impression Brain CT 11/04/23 09:38 IMPRESSION: 1. No acute intracranial abnormality. 2. Senescent changes. Electronically Signed: Chris Royal MD at 10:41 EDT , Chest X-Ray 11/04/23 09:38 IMPRESSION: No acute cardiopulmonary abnormality. Electronically Signed: Chris Royal MD at 10:50 EDT , Renal Ultrasound 11/04/23 10:57 IMPRESSION: Mild bilateral hydronephrosis. Electronically Signed: Chris Royal MD at 12:27 EDT , Physical Exam Narrative GENERAL: cooperative HEENT: Atraumatic; normocephalic EYES; Anicteric, Normal Conjunctiva NECK; supple, normal thyroid, RESPIRATORY: Diminished to auscultation CARDIOVASCULAR: Regular S1 S2, GI: soft, normoactive bowel sounds, : No Renal angle tenderness; EXTREMITIES: No edema, no clubbing, MUSCULOSKELETAL: no muscle wasting NEURO: Awake; no lateralizing signs. SKIN: No Rash PSYCH; Flat affect Assessment & Plan Assessment/Plan (1) VIRY (acute kidney injury): PLAN: Plan Patient is a 73-year-old gentleman presenting with progressive generalized weakness and recurrent falls. Found to have acute urinary retention with VIRY admitted to monitored bed for further management 1. Acute kidney injury ? Suspected to be secondary to obstructive uropathy. Díaz catheter was placed in the ED admitted to monitored bed. Subsequent evaluation with renal ultrasound demonstrated mild bilateral hydronephrosis. Patient was placed on Flomax. Response to therapy being monitored with daily BMPs ? 11/05/2023. Slight improvement in kidney function repeat labs ordered for monitoring consult also placed to nephrology 2. Recurrent falls ? Requested for PT OT eval and bilingual social worker to assist with discharge planning 3. Previous CVA with residual left-sided weakness ? CT of the brain obtained on admission did not show any acute intracranial abnormality. Patient is on antiplatelet therapy with aspirin did continue 4. Hypertension ? Blood pressure controlled, home medications continued with dose adjustment as needed 5. Tobacco dependence ? Counseled on cessation, offered nicotine patch for tobacco cravings 6. Anemia ? Secondary to chronic disorder ordered iron studies as well as B12 levels. Monitoring H&H and transfuse if patient becomes symptomatic or hemoglobin falls below 7 -11/05/2023 hemoglobin down to 8.2 but no indication for blood transfusion at this 7. Chronic pain syndrome ? Patient is on gabapentin as well as scheduled oxycodone continue 8. DVT prophylaxis ? SC heparin ? 11/05/2023; heparin discontinued following drop in platelet counts 9. Physical deconditioning ? Requested for PT OT eval and bilingual social worker to assist with discharge planning Time spent in the patient's overall evaluation,decision-making process, review of diagnostic data, adjustment of management, discussion with other providers, nursing nursing and ancillary staff involved in patient's care documentation, 50 Minutes Charges/Coding Visit Charges Inpatient E&M: 59823 [facility] Hosp L3
[2023-11-05 09:10] VITALS: BP 144/91; PULSE 89; RESP 19; TEMP 36.4; O2SAT 96
[2023-11-05] MEDS: Aspirin 81 MG TAB.CHEW PO (09:16)
[2023-11-05] MEDS: Menthol/Lanolin/Calamine/Znox 113 GM Tube 1 APPLIC TOPICAL ×2 (09:16→22:10)
[2023-11-05] MEDS: Heparin Injection (Vial) 5,000 UNIT/ML VIAL 5000 UNIT SC (09:17)
[2023-11-05 09:34] LABS: Platelet Count 147 K/mm3 (150-450); RET-HE 27.4 pg (30-35); Reticulocyte Count 0.91 % (0.5-1.5)
[2023-11-05 09:38] LABS: Iron 31 ug/dL (65-175); Iron Binding Capacity,Total 239 ug/dL (250-450)
[2023-11-05 09:42] LABS: Vitamin B12 383 pg/mL (211-911)
--- NOTE | 2023-11-05 13:52 | CASEMGMT ---
Discharge Planning A list of SNF providers including quality and resource use data and consistent with the patient's preferred geographic region, medical needs, and insurance network was created in [employer] Guide.? This list was provided to the RN CLAUDETTE. Jennifer Medrano, Discharge Planning Asst.
--- NOTE | 2023-11-05 14:00 | CASEMGMT ---
ELOISA WILKINS Face to Face with patient for initial transition planning/care coordination assessment. ELOISA WILKINS introduced self and role at [facility]. Patient sitting in chair, alert and oriented, at bedside. Patient and willing to participate in assessment and is able to answer all questions appropriately. Care providers, pharmacy, and demographics verified. PCP: [place] Specialists: none Preferred Pharmacy: [facility] Insurance: [facility], [employer] [place] Prescription Benefit: yes Living Will/HPOA: none LNOK: Living Arrangements: Patient lives with in a 2 story home with bed and bath on first floor. Patient was previously indepnedent at home. Transportation: DME/HHC: Patient has cane at home. No previous HHC or SNF. RN CLAUDETTE reviewed progress with therapy, requiring min assist and walking only 12 feet. states she will not be able to assist patient if he is like this at discharge. Patient adamant he will not go to SNF at discharge. ELOISA WILKINS explained SNF level of care to patient and . Patient agreeable to work with therapy when is here to reassess if she will be able to assist at home. ELOISA WILKINS called therapy and arranged for PT/OT to work with patient at 1030 when will be here. Patient states he has no further needs or concerns at this time. CM to follow for discharge planning needs that may arise. Disposition Plan: TBD, anticipate HHC vs SNF pending progress with therapy. Edie CRENSHAW, RN, CM
[2023-11-05 15:00] VITALS: BP 150/44; PULSE 78; RESP 17; TEMP 36.2; O2SAT 96
[2023-11-05] MEDS: Tamsulosin HCl 0.4 MG Capsule PO (15:17)
[2023-11-05] MEDS: Acetaminophen 325 MG Tablet 650 MG PO (15:29)
--- NOTE | 2023-11-05 21:55 | CON.PCM.RE_ITS ---
Assessment & Plan Assessment/Plan (1) VIRY (acute kidney injury): PLAN: Baseline creatinine is normal around 0.9. Came with a creatinine of 3.4. Nicholas catheter in place, creatinine improved to 2.8 already. Denies any prostate issues in the past. Continue Flomax. Creatinine should improve. May need urology evaluation. HPI Consult Data Date of Consult: 11/05/23 HPI Narrative Reason for Consultation: Acute renal failure HPI Narrative: WIL ZEE, is a 73 M who presents To the hospital with complaints of inability to urinate. Found to have VIRY with a creatinine of 3.4. Nephrology on consultation in view of acute renal failure. Last known baseline is from 2022 and at that time creatinine was 0.9. Denies any history of prostate issues in the past. [facility] Medical History Lymphedema Spinal stenosis Hyperlipidemia GERD (gastroesophageal reflux disease) Osteoarthritis Venous stasis dermatitis of both lower extremities Edema of left lower leg Edema of right lower leg Swelling of left lower extremity Swelling of right lower extremity History of pulmonary embolism SOB (shortness of breath) Morbid obesity HTN (hypertension) Pneumonia History of tobacco use Lung mass Pulmonary emboli Hemoptysis Home Medications ?Medication ?Instructions ?Recorded ?Last Taken ?Type albuterol sulfate 90 mcg/actuation 1 - 2 puff inhalation Q4H PRN 12/29/16 Unknown History aerosol inhaler SHORTNESS OF BREATH/WHEEZING aspirin 81 mg chewable tablet 81 mg PO DAILY HEART HEALTH 12/29/16 11/03/23 History dicyclomine 20 mg tablet 10 mg PO BID PRN IRRITABLE BOWELS 12/29/16 11/03/23 History ahcsrzup-ncs-afalu acid 0.4 1 ea PO DAILY SUPPLEMENT 12/29/16 11/03/23 History mg-lycopene 300 mcg-lutein 250 mcg tablet oxycodone 15 mg tablet,crush 15 mg PO Q8H PAIN 12/29/16 11/03/23 History resistant,extended release 12 hr benazepril 40 mg tablet 40 mg PO DAILY BLOOD PRESSURE 05/19/23 11/03/23 History chlorthalidone 25 mg tablet 25 mg PO DAILY EDEMA 05/19/23 11/03/23 History gabapentin 300 mg capsule 300 mg PO 4X/DAY NEUROPATHY 11/04/23 11/03/23 History Allergy/AdvReac Type Severity Reaction Status Date / Time morphine (From Embeda) Allergy Other Verified 11/04/23 09:10 naltrexone (From Embeda) Allergy Other Verified 11/04/23 09:10 pregabalin (From Lyrica) Allergy Unknown Verified 11/04/23 09:10 acetaminophen (From Percocet) AdvReac Upset Verified 11/04/23 09:10 Stomach oxycodone (From Percocet) AdvReac Upset Verified 11/04/23 09:10 Stomach Family History Unknown No problems noted. Surgical History History of right knee surgery History of bilateral inguinal hernia repair R knee and leg surgery H/O hernia repair History of appendectomy Social History Smoking Status: Former smoker quit date: 06/15/02 pack-years: 60 Electronic Cigarette Use: not used second hand exposure: Yes alcohol intake: never substance use type: does not use ROS ROS Narrative negative except above Physical Exam Narrative Alert awake oriented x 3 no obvious distress no pallor no icterus no JVD s1s2 no murmurs lungs clear abdomen soft no organomegaly no edema no cyanosis nicholas + Lab / Micro Data 11/05/23 05:55 11/05/23 05:55 Labs: Laboratory Results - last 24 hr 11/05/23 05:55: WBC 6.8, RBC 2.86 L, Hgb 8.2 L, Hct 27.1 L, MCV 94.8 H, MCH 28.7, MCHC 30.3 L, RDW Std Deviation 59.2 H, RDW Coeff of [place] 17.2 H, Plt Count 149 L, MPV 10.7, Immature Gran % (Auto) 0.400, Neut % (Auto) 70.0, Lymph % (Auto) 15.5 L, [place] % (Auto) 9.6, Eos % (Auto) 4.1, Baso % (Auto) 0.4, Absolute Neuts (auto) 4.7, Absolute Lymphs (auto) 1.05, Nucleated RBC % 0, Retic Count 0.91, Immature Retic Fraction 8.90, Retic Hgb Equivalent 27.4 L, Sodium 145, Potassium 3.8, Chloride 117 H, Carbon Dioxide 20.0 L, Anion Gap 8, BUN 53 H, C reatinine 2.81 H, Estim Creat Clear Calc 18.56, Est GFR (MDRD) Af Amer 29 L, Est GFR (MDRD) Non-Af 24 L, BUN/Creatinine Ratio 18.9, Glucose 101, Calcium 8.6, I mandy 31 L, TIBC 239 L, Iron Saturation 13.0 L, Vitamin B12 383
[2023-11-05 22:03] VITALS: BP 167/71; PULSE 74; RESP 18; TEMP 36.3; O2SAT 96
[2023-11-06] VITALS (9 sets, daily range): BP systolic 124–200; BP diastolic 68–81; PULSE 67–92; RESP 14–18; TEMP 36.4–36.6; O2SAT 94–95; BMI 23.3
[2023-11-06] MEDS: hydrALAZINE 20 MG/ML Vial 10 MG IV ×2 (05:01→16:37)
[2023-11-06] MEDS: 0.9% Saline Lock 10 ML Syringe IV ×2 (05:02→16:37)
[2023-11-06] MEDS: Gabapentin 300 MG Capsule PO ×3 (05:05→22:05)
[2023-11-06] MEDS: oxyCODONE CR 15 MG Tablet PO ×3 (05:05→22:05)
[2023-11-06 07:32] LABS: Absolute Lymphocyte Count 0.83 X10^3/uL (0.83-4.51); Absolute Neutrophil Count 5.6 X10^3/uL (2.0-7.7); Basophil# 0.03 X10^3/uL; Basophil% 0.4 % (0-1); Eosinophil# 0.36 X10^3/uL; Eosinophils% 4.8 % (0-5); Hemoglobin 8.7 g/dL (13.0-16.5); Lymphocyte # 0.83 X10^3/ul (0.83-4.51); Lymphocyte % 11.1 % (19-41); Mean Corp Hgb Conc 31.1 g/dL (32-36); Mean Corpuscular Volume 93.3 fL (80-94); Mean Platelet Vol. 11.1 fl (6.2-12.0); Monocyte# 0.68 X10^3/uL; Monocyte% 9.1 % (0-10); NRBC Flagged by Analyzer 0 % (0-5); Neutrophil # 5.58 X10^3/uL (2.7-7.7); Neutrophil % 74.3 % (47-70); Platelet Count 160 K/mm3 (150-450); RBC Distribution Width CV 17.1 % (11.6-14.6); White Blood Count 7.5 K/mm3 (4.4-11.0)
[2023-11-06 07:59] LABS: Anion Gap 4 (5-15); BUN 43 mg/dL (7-18); BUN/Creat Ratio 16.5 RATIO (10-20); Calcium,Total 8.4 mg/dL (8.5-10.1); Chloride 117 mmol/L (98-107); EST Glomerular Filtration Rate 26 mL/min (>60); Est Glom Filt Rate - Afr Amer 31 mL/min (>60); Estimated Creatinine Clearance 20.06 ml/min; Glucose 113 mg/dL (74-106); Potassium 4.1 mmol/L (3.5-5.1); Sodium Level 145 mmol/L (136-145)
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
[2023-11-06] MEDS: Menthol/Lanolin/Calamine/Znox 113 GM Tube 1 APPLIC TOPICAL (09:44)
[2023-11-06] MEDS: Aspirin 81 MG TAB.CHEW PO (09:45)
--- NOTE | 2023-11-06 12:27 | PCM.PN.REN ---
Subjective Subjective No new complaints today. Objective Data Objective Data Vital Signs: Vital Signs Temp Pulse Resp BP Pulse Ox O2 Del Method 97.5 F L 86 18 177/71 H 95 Room Air 11/06/23 09:40 11/06/23 09:40 11/06/23 09:40 11/06/23 09:40 11/06/23 09:40 11/06/23 09:40 Oxygen Delivery Method Room Air Weight: 59.7 kg Body Mass Index (BMI) 23.3 Intake & Output: Intake and Output for Last 24 Hours 11/04/23 11/05/23 11/06/23 23:59 23:59 23:59 Intake Total 1382.5 / 1382.5 4010 / 4010 240 / 240 Output Total 1070 / 1070 2200 / 2200 1800 / 1800 Balance 312.5 / 312.5 1810 / 1810 -1560 / -1560 Lab / Micro Data 11/06/23 06:55 11/06/23 06:55 Labs: Laboratory Results - last 24 hr 11/06/23 06:55: WBC 7.5, RBC 3.00 L, Hgb 8.7 L, Hct 28.0 L, MCV 93.3, MCH 29.0, MCHC 31.1 L, RDW Std Deviation 59.0 H, RDW Coeff of [place] 17.1 H, Plt Count 160, MPV 11.1, Immature Gran % (Auto) 0.300, Neut % (Auto) 74.3 H, Lymph % (Auto) 11.1 L, [place] % (Auto) 9.1, Eos % (Auto) 4.8, Baso % (Auto) 0.4, Absolute Neuts (auto) 5.6, Absolute Lymphs (auto) 0.83, Nucleated RBC % 0, Sodium 145, Potassium 4.1, Chloride 117 H, Carbon Dioxide 24.0, Anion Gap 4 L, BUN 43 H, Creatinine 2.60 H, Estim Creat Clear Calc 20.06, Est GFR (MDRD) Af Amer 31 L, Est GFR (MDRD) Non-Af 26 L, BUN/Creatinine Ratio 16.5, Glucose 113 H, Calcium 8.4 L Physical Exam Narrative Alert awake oriented x 3 no obvious distress no pallor no icterus no JVD s1s2 no murmurs lungs clear abdomen soft no organomegaly no edema no cyanosis nicholas + Assessment & Plan Assessment/Plan (1) VIRY (acute kidney injury): PLAN: Reviewed records from [facility]. Last known creatinine from there is February 2023 and at that time creatinine was normal at 0.9. Came in with a creatinine of 3.7, improving. Retention, s/p Nicholas catheter placement. Currently on Flomax. May need urology follow-up Anemia, iron deficiency, add oral iron Hypertension, add amlodipine He does have slightly elevated protein gap. We can check serum protein electrophoresis as outpatient later Since creatinine is improving, no further workup needed. We will arrange follow-up after discharge. He is agreeable.
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
[2023-11-06] MEDS: NIFEdipine 60 MG Tablet PO (14:11)
--- NOTE | 2023-11-06 15:34 | CASEMGMT ---
ELOISA WILKINS updated by scale shooter that states patient is agreeable to TCU for at discharge. RN CM in to discuss discharge planning with patient and . states that patient is agreeable to TCU at discharge. RN CM verified with patient and patient nodded in agreement. Patient and had no further questions or concerns. ELOISA WILKINS updated SW.
--- NOTE | 2023-11-06 15:39 | NS ---
Nutrition Addendum to assessment dated 11/05: pt took all of regular breakfast tray~100% this day so, diet changed to cardiac given medical history and elevated renal labs. Subsequently refused lunch tray due to dietary restriction. brought salt substitute from home and agrees to liberalizing diet to regular/no added salt to encourage improved PO at meals. Pt resisting dietary restriction and refusing PO so, will liberalize diet for now and monitor need to restrict diet as indicated. Isatu Jordan, MS, RD, LD
--- NOTE | 2023-11-06 16:00 | CASEMGMT ---
SW was informed patient was agreeable to TCU. DARRIAN left a message for Sandie in TCU regarding referral. Kristen Hu MSW CHRISTEN
[2023-11-06] MEDS: Tamsulosin HCl 0.4 MG Capsule PO (16:37)
[2023-11-06] MEDS: oxyCODONE 5 MG Tablet PO (19:47)
[2023-11-07] VITALS (8 sets, daily range): BP systolic 121–162; BP diastolic 60–70; PULSE 71–109; RESP 12–18; TEMP 35.9–36.8; O2SAT 93–98; BMI 23.0
[2023-11-07] MEDS: oxyCODONE CR 15 MG Tablet PO ×3 (05:02→19:59)
[2023-11-07] MEDS: Gabapentin 300 MG Capsule PO ×3 (05:03→19:59)
[2023-11-07] MEDS: Aspirin 81 MG TAB.CHEW PO (08:21)
[2023-11-07] MEDS: oxyCODONE 5 MG Tablet PO (08:21)
[2023-11-07] MEDS: NIFEdipine 60 MG Tablet PO (08:21)
[2023-11-07] MEDS: 0.9% Saline Lock 10 ML Syringe IV (08:22)
[2023-11-07 11:58] LABS: Absolute Lymphocyte Count 0.85 X10^3/uL (0.83-4.51); Basophil# 0.03 X10^3/uL; Basophil% 0.4 % (0-1); Eosinophils% 4.4 % (0-5); Hematocrit 29.6 % (40-54); Hemoglobin 9.3 g/dL (13.0-16.5); Lymphocyte # 0.85 X10^3/ul (0.83-4.51); Lymphocyte % 12.4 % (19-41); Mean Corp Hgb Conc 31.4 g/dL (32-36); Mean Corpuscular Hgb 29.3 pg (27.0-32.0); Mean Corpuscular Volume 93.4 fL (80-94); Mean Platelet Vol. 10.5 fl (6.2-12.0); Monocyte% 10.2 % (0-10); NRBC Flagged by Analyzer 0 % (0-5); Neutrophil # 4.96 X10^3/uL (2.7-7.7); Platelet Count 174 K/mm3 (150-450); RBC Distribution Width CV 17.1 % (11.6-14.6); RBC Distribution Width SD 58.5 fl (35.1-43.9); Red Blood Count 3.17 M/mm3 (4.6-6.2); White Blood Count 6.9 K/mm3 (4.4-11.0)
[2023-11-07] MEDS: Menthol/Lanolin/Calamine/Znox 113 GM Tube 1 APPLIC TOPICAL ×2 (11:59→20:01)
[2023-11-07] MEDS: Ferrous Sulfate 325 MG Tablet PO (11:59)
[2023-11-07 12:18] LABS: Anion Gap 5 (5-15); BUN 37 mg/dL (7-18); Calcium,Total 8.6 mg/dL (8.5-10.1); Chloride 115 mmol/L (98-107); Creatinine, Serum 2.18 mg/dL (0.70-1.30); EST Glomerular Filtration Rate 32 mL/min (>60); Est Glom Filt Rate - Afr Amer 38 mL/min (>60); Estimated Creatinine Clearance 23.93 ml/min; Glucose 128 mg/dL (74-106); Potassium 4.5 mmol/L (3.5-5.1); Sodium Level 145 mmol/L (136-145)
--- NOTE | 2023-11-07 13:54 | CASEMGMT ---
Social Work Email sent to Fifi in TCU requesting admission to TCU. SW will await determination of acceptance. Plan: TCU, pending acceptance BRIAN Cazares
--- NOTE | 2023-11-07 14:10 | PCM.PN.HOSP ---
Reason for Visit Reason for Visit: Diagnoses Acute kidney failure, unspecified (11/04/23) Objective Data Objective Data Vital Signs: Vital Signs Temp Pulse Resp BP Pulse Ox O2 Del Method 97.8 F 73 16 124/61 H 97 Room Air 11/07/23 13:18 11/07/23 13:18 11/07/23 13:18 11/07/23 13:18 11/07/23 13:18 11/07/23 13:35 Oxygen Delivery Method Room Air Weight: 129 lb 13.636 oz Body Mass Index (BMI) 23.0 Intake & Output: Intake and Output for Last 24 Hours 11/05/23 11/06/23 11/07/23 23:59 23:59 23:59 Intake Total 4010 / 4010 1100 / 1100 490 / 490 Output Total 2200 / 2200 3650 / 3650 1275 / 1275 Balance 1810 / 1810 -2550 / -2550 -785 / -785 Lab / Micro Data 11/07/23 11:40 11/07/23 11:40 Labs: Laboratory Results - last 24 hr 11/07/23 11:40: WBC 6.9, RBC 3.17 L, Hgb 9.3 L, Hct 29.6 L, MCV 93.4, MCH 29.3, MCHC 31.4 L, RDW Std Deviation 58.5 H, RDW Coeff of [place] 17.1 H, Plt Count 174, MPV 10.5, Immature Gran % (Auto) 0.600, Neut % (Auto) 72.0 H, Lymph % (Auto) 12.4 L, [place] % (Auto) 10.2 H, Eos % (Auto) 4.4, Baso % (Auto) 0.4, Absolute Neuts (auto) 5.0, Absolute Lymphs (auto) 0.85, Nucleated RBC % 0, Sodium 145, Potassium 4.5, Chloride 115 H, Carbon Dioxide 25.0, Anion Gap 5, BUN 37 H, Creatinine 2.18 H, Estim Creat Clear Calc 23.93, Est GFR (MDRD) Af Amer 38 L, Est GFR (MDRD) Non-Af 32 L, BUN/Creatinine Ratio 17.0, Glucose 128 H, Calcium 8.6 Physical Exam Narrative No acute issues. Patient has Díaz catheter clear urine. Creatinine improving. Ultrasound reviewed. Patient stated that he falls couple times in the last 1 month but his exaggerates it. Denies dysuria.Denies history of prostate issues. Has not seen urologist. Seen and examined. General: Alert, Oriented x3, Cooperative HEENT: Atraumatic, PERRLA, EOMI, Normocephalic Oral: No Gingival or Mucosal Lesions/ Ulcerations Neck: Supple, No JVD, Negative Carotid Bruits Chest wall/Lungs: Air entry diminished in bilateral lung bases. No crepitation/rhonchi Cardiovascular: Regular rate, Regular Rhythm, Normal S1, Normal S2, No M/G/R Abdomen: Bowel Sounds Present, Soft, Non Tender, Non-Distended : No Díaz catheter. Clear urine renal angle tenderness. No suprapubic tenderness. Extremities: No edema, Capillary Refill Less than 3 Seconds Skin: Dry skin, whitish sticky scales, features of chronic dermatitis with skin thickening and hypertrophy Musculoskeletal: No Tenderness to Palpation of Joints or Extremities. Bilateral knee arthritis Neurological: Cranial nerves II-XII grossly intact, DTR 2+/4. No acute focal neurological deficit. Psych/Mental Status: Flat affect Assessment & Plan Assessment/Plan (1) VIRY (acute kidney injury): PLAN: Plan Patient is a 73-year-old gentleman presenting with progressive generalized weakness and recurrent falls. Found to have acute urinary retention with VIRY admitted to monitored bed for further management 1. Acute kidney injury ? Suspected to be secondary to obstructive uropathy. Díaz catheter was placed in the ED admitted to monitored bed. Subsequent evaluation with renal ultrasound demonstrated mild bilateral hydronephrosis. Patient was placed on Flomax. Response to therapy being monitored with daily BMPs ? 11/05/2023. Slight improvement in kidney function repeat labs ordered for monitoring consult also placed to nephrology 11/05: Admitted with creatinine 3.4 to improved to 2.6. Last creatinine in system is December 2016 0.71. 11/06: Ultrasound kidneys and bladder reviewed. Mild bilateral hydronephrosis. Díaz catheter with mild dysuria during bladder. Patient on Flomax. Will need urology follow-up probably outpatient. PT and OT per 2. Recurrent falls ? Requested for PT OT eval and social security assessor to assist with discharge planning 3. Previous CVA with residual left-sided weakness ? CT of the brain obtained on admission did not show any acute intracranial abnormality. Patient is on antiplatelet therapy with aspirin did continue 4. Hypertension ? Blood pressure controlled, home medications continued with dose adjustment as needed 11/05: Blood pressure is elevated 191/76, 178/68. Antihypertensive medications uptitrated 11/06: Blood pressure is normal 124/61. 5. Tobacco dependence ? Counseled on cessation, offered nicotine patch for tobacco cravings 6. Anemia ? Secondary to chronic disorder ordered iron studies as well as B12 levels. Monitoring H&H and transfuse if patient becomes symptomatic or hemoglobin falls below 7 -11/05: Hemoglobin is low but no indication for transfusion.Admitted with creatinine 0.2, decreased to 8.7 11/06:H&H improving 9.3/30%. Iron study shows low serum iron, TIBC with iron saturation 13%. Overall suggestive of anemia of chronic disease. B12 383 low normal. 7. Chronic pain syndrome ? Patient is on gabapentin as well as scheduled oxycodone continue 8. DVT prophylaxis ? SC heparin ? 11/05/2023; heparin was discontinued following drop in platelet counts 11/05: Bilateral SCDs 9. Physical deconditioning ? Requested for PT OT eval and social security assessor to assist with discharge planning 10. Chronic dermatitis, patient is chronic rash over both lower legs with skin/subcutaneous tissue hypertrophy and thickening. Betamethasone cream ordered. Already on Calmoseptine ointment Charges/Coding Visit Charges Inpatient E&M: 80674 Subs Hosp L2
[2023-11-07] MEDS: Clotrimazole/Betamethasone 1 Tube 1 APPLIC TOPICAL ×2 (14:49→20:01)
[2023-11-07] MEDS: Cyanocobalamin 500 MCG Tablet 1000 MCG PO (14:50)
[2023-11-07] MEDS: Tamsulosin HCl 0.4 MG Capsule PO (16:48)
[2023-11-07] MEDS: Ascorbic Acid 500 MG Tablet PO (16:48)
[2023-11-07] MEDS: Acetaminophen 325 MG Tablet 650 MG PO (19:58)
[2023-11-07] MEDS: MELATONIN 3 MG TABLET PO (19:59)
[2023-11-07] MEDS: Senna/Docusate Sodium 1 Tablet 2 TABLET PO (20:01)
[2023-11-08 03:50] VITALS: BP 149/71; PULSE 76; RESP 13; TEMP 36.9; O2SAT 97
[2023-11-08 04:13] VITALS: BMI 23.8
[2023-11-08] MEDS: Gabapentin 300 MG Capsule PO ×3 (04:49→20:51)
[2023-11-08] MEDS: oxyCODONE CR 15 MG Tablet PO ×3 (04:49→20:51)
[2023-11-08 05:00] VITALS: BP 145/73; PULSE 74; RESP 12; TEMP 36.3; O2SAT 98
[2023-11-08 06:48] LABS: Absolute Lymphocyte Count 1.39 X10^3/uL (0.83-4.51); Absolute Neutrophil Count 4.2 X10^3/uL (2.0-7.7); Basophil# 0.04 X10^3/uL; Basophil% 0.6 % (0-1); Eosinophil# 0.42 X10^3/uL; Eosinophils% 6.2 % (0-5); Hematocrit 28.3 % (40-54); Hemoglobin 8.7 g/dL (13.0-16.5); Lymphocyte # 1.39 X10^3/ul (0.83-4.51); Lymphocyte % 20.4 % (19-41); Mean Corp Hgb Conc 30.7 g/dL (32-36); Mean Corpuscular Hgb 28.3 pg (27.0-32.0); Mean Corpuscular Volume 92.2 fL (80-94); Mean Platelet Vol. 10.5 fl (6.2-12.0); Monocyte# 0.71 X10^3/uL; Monocyte% 10.4 % (0-10); NRBC Flagged by Analyzer 0 % (0-5); Neutrophil # 4.22 X10^3/uL (2.7-7.7); Neutrophil % 61.8 % (47-70); Platelet Count 196 K/mm3 (150-450); RBC Distribution Width CV 17.1 % (11.6-14.6); RBC Distribution Width SD 57.8 fl (35.1-43.9); Red Blood Count 3.07 M/mm3 (4.6-6.2); White Blood Count 6.8 K/mm3 (4.4-11.0)
[2023-11-08 07:22] LABS: Anion Gap 10 (5-15); BUN 35 mg/dL (7-18); BUN/Creat Ratio 17.2 RATIO (10-20); Calcium,Total 8.6 mg/dL (8.5-10.1); Chloride 110 mmol/L (98-107); Creatinine, Serum 2.04 mg/dL (0.70-1.30); EST Glomerular Filtration Rate 34 mL/min (>60); Est Glom Filt Rate - Afr Amer 41 mL/min (>60); Estimated Creatinine Clearance 25.57 ml/min; Glucose 88 mg/dL (74-106); Potassium 4.8 mmol/L (3.5-5.1); Sodium Level 140 mmol/L (136-145)
[2023-11-08 09:48] VITALS: BP 127/60; PULSE 84; RESP 18; TEMP 36; O2SAT 95
[2023-11-08] MEDS: Clotrimazole/Betamethasone 1 Tube 1 APPLIC TOPICAL ×2 (09:55→20:52)
[2023-11-08] MEDS: Aspirin 81 MG TAB.CHEW PO (09:56)
[2023-11-08] MEDS: NIFEdipine 60 MG Tablet PO (09:56)
[2023-11-08] MEDS: Ascorbic Acid 500 MG Tablet PO ×2 (09:57→17:28)
[2023-11-08] MEDS: Cyanocobalamin 500 MCG Tablet 1000 MCG PO (09:57)
[2023-11-08] MEDS: Senna/Docusate Sodium 1 Tablet 2 TABLET PO ×2 (09:57→20:51)
[2023-11-08] MEDS: Menthol/Lanolin/Calamine/Znox 113 GM Tube 1 APPLIC TOPICAL ×2 (09:58→20:52)
[2023-11-08] MEDS: oxyCODONE 5 MG Tablet PO (10:02)
[2023-11-08] MEDS: Acetaminophen 325 MG Tablet 650 MG PO ×2 (10:03→20:51)
--- NOTE | 2023-11-08 11:09 | PCM.PN.HOSP ---
Reason for Visit Reason for Visit: Diagnoses Acute kidney failure, unspecified (11/04/23) Objective Data Objective Data Vital Signs: Vital Signs Temp Pulse Resp BP Pulse Ox O2 Del Method 96.8 F L 84 18 127/60 H 95 Room Air 11/08/23 09:48 11/08/23 09:48 11/08/23 09:48 11/08/23 09:48 11/08/23 09:48 11/08/23 10:00 Oxygen Delivery Method Room Air Weight: 134 lb 11.239 oz Body Mass Index (BMI) 23.8 Intake & Output: Intake and Output for Last 24 Hours 11/06/23 11/07/23 11/08/23 23:59 23:59 23:59 Intake Total 1100 / 1100 730 / 730 300 / 300 Output Total 3650 / 3650 2125 / 2125 1250 / 1250 Balance -2550 / -2550 -1395 / -1395 -950 / -950 Lab / Micro Data 11/08/23 05:30 11/08/23 05:30 Labs: Laboratory Results - last 24 hr 11/07/23 11:40: WBC 6.9, RBC 3.17 L, Hgb 9.3 L, Hct 29.6 L, MCV 93.4, MCH 29.3, MCHC 31.4 L, RDW Std Deviation 58.5 H, RDW Coeff of [place] 17.1 H, Plt Count 174, MPV 10.5, Immature Gran % (Auto) 0.600, Neut % (Auto) 72.0 H, Lymph % (Auto) 12.4 L, [place] % (Auto) 10.2 H, Eos % (Auto) 4.4, Baso % (Auto) 0.4, Absolute Neuts (auto) 5.0, Absolute Lymphs (auto) 0.85, Nucleated RBC % 0, Sodium 145, Potassium 4.5, Chloride 115 H, Carbon Dioxide 25.0, Anion Gap 5, BUN 37 H, Creatinine 2.18 H, Estim Creat Clear Calc 23.93, Est GFR (MDRD) Af Amer 38 L, Est GFR (MDRD) Non-Af 32 L, BUN/Creatinine Ratio 17.0, Glucose 128 H, Calcium 8.6 11/08/23 05:30: WBC 6.8, RBC 3.07 L, Hgb 8.7 L, Hct 28.3 L, MCV 92.2, MCH 28.3, MCHC 30.7 L, RDW Std Deviation 57.8 H, RDW Coeff of [place] 17.1 H, Plt Count 196, MPV 10.5, Immature Gran % (Auto) 0.600, Neut % (Auto) 61.8, Lymph % (Auto) 20.4, [place] % (Auto) 10.4 H, Eos % (Auto) 6.2 H, Baso % (Auto) 0.6, Absolute Neuts (auto) 4.2, Absolute Lymphs (auto) 1.39, Nucleated RBC % 0, Sodium 140, Potassium 4.8, Chloride 110 H, Carbon Dioxide 20.0 L, Anion Gap 10, BUN 35 H, Creatinine 2.04 H, Estim Creat Clear Calc 25.57, Est GFR (MDRD) Af Amer 41 L, Est GFR (MDRD) Non-Af 34 L, BUN/Creatinine Ratio 17.2, Glucose 88, Calcium 8.6 Physical Exam Narrative No acute issues. Patient has Díaz catheter clear urine. Creatinine improving. Ultrasound reviewed. Patient moved his bowel. Patient stated that he falls couple times in the last 1 month but his exaggerates it. Denies dysuria.Denies history of prostate issues. Has not seen urologist. Seen and examined. General: Alert, Oriented x3, Cooperative HEENT: Atraumatic, PERRLA, EOMI, Normocephalic Oral: No Gingival or Mucosal Lesions/ Ulcerations Neck: Supple, No JVD, Negative Carotid Bruits Chest wall/Lungs: Air entry diminished in bilateral lung bases. No crepitation/rhonchi Cardiovascular: Regular rate, Regular Rhythm, Normal S1, Normal S2, No M/G/R Abdomen: Bowel Sounds Present, Soft, Non Tender, Non-Distended : No Díaz catheter. Clear urine renal angle tenderness. No suprapubic tenderness. Extremities: No edema, Capillary Refill Less than 3 Seconds Skin: Dry skin, whitish sticky scales, features of chronic dermatitis with skin thickening and hypertrophy getting better Musculoskeletal: No Tenderness to Palpation of Joints or Extremities. Bilateral knee arthritis Neurological: Cranial nerves II-XII grossly intact, DTR 2+/4. No acute focal neurological deficit. Psych/Mental Status: Flat affect Assessment & Plan Assessment/Plan (1) VIRY (acute kidney injury): PLAN: Plan Patient is a 73-year-old gentleman presenting with progressive generalized weakness and recurrent falls. Found to have acute urinary retention with VIRY admitted to monitored bed for further management 1. Acute kidney injury ? Suspected to be secondary to obstructive uropathy. Díaz catheter was placed in the ED admitted to monitored bed. Subsequent evaluation with renal ultrasound demonstrated mild bilateral hydronephrosis. Patient was placed on Flomax. Response to therapy being monitored with daily BMPs ? 11/05/2023. Slight improvement in kidney function repeat labs ordered for monitoring consult also placed to nephrology 11/05: Admitted with creatinine 3.4 to improved to 2.6. Last creatinine in system is December 2016 0.71. 11/06: Ultrasound kidneys and bladder reviewed. Mild bilateral hydronephrosis. Díaz catheter with mild dysuria during bladder. Patient on Flomax. Will need urology follow-up probably outpatient. PT and OT per 11/07: BUNs/creatinine gradual improvement but overall creatinine clearance remains similar 25 mill per minute 2. Recurrent falls ? Requested for PT OT eval and social work program coordinator to assist with discharge planning 3. Previous CVA with residual left-sided weakness ? CT of the brain obtained on admission did not show any acute intracranial abnormality. Patient is on antiplatelet therapy with aspirin did continue 4. Hypertension ? Blood pressure controlled, home medications continued with dose adjustment as needed 11/05: Blood pressure is elevated 191/76, 178/68. Antihypertensive medications uptitrated 11/06: Blood pressure is normal 124/61. 5. Tobacco dependence ? Counseled on cessation, offered nicotine patch for tobacco cravings 6. Anemia ? Secondary to chronic disorder ordered iron studies as well as B12 levels. Monitoring H&H and transfuse if patient becomes symptomatic or hemoglobin falls below 7 -11/05: Hemoglobin is low but no indication for transfusion.Admitted with creatinine 0.2, decreased to 8.7 11/06:H&H improving 9.3/30%. Iron study shows low serum iron, TIBC with iron saturation 13%. Overall suggestive of anemia of chronic disease. B12 383 low normal. 11/07: H&H 8.7/28.3%. Slight decrease. Patient not on anticoagulant but on baby aspirin. IV iron ordered 7. Chronic pain syndrome ? Patient is on gabapentin as well as scheduled oxycodone continue 8. DVT prophylaxis ? SC heparin ? 11/05/2023; heparin was discontinued following drop in platelet counts 11/05: Bilateral SCDs 9. Physical deconditioning ? Requested for PT OT eval and social work program coordinator to assist with discharge planning 10. Chronic dermatitis, patient is chronic rash over both lower legs with skin/subcutaneous tissue hypertrophy and thickening. Betamethasone cream ordered. Already on Calmoseptine ointment Charges/Coding Visit Charges Inpatient E&M: 33819 Subs Hosp L2
[2023-11-08] MEDS: Sodium Ferric Gluconat/Sucrose 250 MG in 0.9% Normal Saline (250mL Bag) 250 ML 135 MG IV (12:21)
[2023-11-08] MEDS: Ferrous Sulfate 325 MG Tablet PO (12:23)
--- NOTE | 2023-11-08 12:30 | NURSING ---
[facility] Charmaine informed this RN that patient refused nciholas care and became angry, yelling at the [employer] about his privacy. This RN spoke with the patient about resisting nicholas care and yelling at [employer]. This RN explained to the patient the importance catheter care and cleaning to prevent infections. Patient reluctantly agreed to nicholas care. [facility] informed patient agreeable to catheter care this afternoon.
[2023-11-08 14:01] VITALS: BP 127/61; PULSE 64; RESP 16; TEMP 35.9; O2SAT 95
--- NOTE | 2023-11-08 15:46 | NURSING ---
Patient refused catheter care despite education on risk of infection.
[2023-11-08] MEDS: Tamsulosin HCl 0.4 MG Capsule PO (17:28)
--- NOTE | 2023-11-08 19:03 | PCM.PN.REN ---
Subjective Subjective Following for VIRY. The patient feels well today. He denies chest pain, shortness of breath, or nausea. Appetite is good. Objective Data Objective Data Vital Signs: Vital Signs Temp Pulse Resp BP Pulse Ox O2 Del Method 96.6 F L 64 16 127/61 H 95 Room Air 11/08/23 14:01 11/08/23 14:01 11/08/23 14:01 11/08/23 14:01 11/08/23 14:01 11/08/23 14:01 Oxygen Delivery Method Room Air Weight: 61.1 kg Body Mass Index (BMI) 23.8 Intake & Output: Intake and Output for Last 24 Hours 11/06/23 11/07/23 11/08/23 23:59 23:59 23:59 Intake Total 1100 / 1100 730 / 730 570 / 570 Output Total 3650 / 3650 2125 / 2125 2075 / 2075 Balance -2550 / -2550 -1395 / -1395 -1505 / -1505 Lab / Micro Data 11/08/23 05:30 11/08/23 05:30 Labs: Laboratory Results - last 24 hr 11/08/23 05:30: WBC 6.8, RBC 3.07 L, Hgb 8.7 L, Hct 28.3 L, MCV 92.2, MCH 28.3, MCHC 30.7 L, RDW Std Deviation 57.8 H, RDW Coeff of [place] 17.1 H, Plt Count 196, MPV 10.5, Immature Gran % (Auto) 0.600, Neut % (Auto) 61.8, Lymph % (Auto) 20.4, [place] % (Auto) 10.4 H, Eos % (Auto) 6.2 H, Baso % (Auto) 0.6, Absolute Neuts (auto) 4.2, Absolute Lymphs (auto) 1.39, Nucleated RBC % 0, Sodium 140, Potassium 4.8, Chloride 110 H, Carbon Dioxide 20.0 L, Anion Gap 10, BUN 35 H, Creatinine 2.04 H, Estim Creat Clear Calc 25.57, Est GFR (MDRD) Af Amer 41 L, Est GFR (MDRD) Non-Af 34 L, BUN/Creatinine Ratio 17.2, Glucose 88, Calcium 8.6 Physical Exam Narrative Alert awake oriented x 3 no obvious distress no pallor no icterus no JVD s1s2 no murmurs lungs clear abdomen soft no organomegaly no edema no cyanosis nicholas + Assessment & Plan Assessment/Plan (1) VIRY (acute kidney injury): PLAN: Impression/plan: The patient is a 73-year-old man with past history of stroke with residual left hemiparesis, hypertension, PE, GERD, osteoarthritis, and hyperlipidemia. Patient presented to hospital on 11/04/2023 with generalized weakness with recurrent fall. He was also found to have acute urinary retention. Nephrology is following for VIRY. Acute kidney injury. Reviewed records from [facility]. Last known creatinine from there is February 2023 and at that time creatinine was normal at 0.90 mg/dL. Serum creatinine was 3.42 mg/dL on 11/04/2023 on presentation. Suspect VIRY is secondary to ischemic ATN from volume depletion as well as obstructive VIRY from urinary retention (see below). Prior to admission, the patient was on chlorthalidone and benazepril. Renal function has been improving since daily since 11/04/2023. Creatinine is down to 2.04 mg/dL today. Continue Nicholas catheter. Keep MAP above 65 mmHg. Hold off on restarting SAL inhibitor and chlorthalidone at least until creatinine nadirs. He does have slightly elevated protein gap in the setting of anemia. We can check serum protein electrophoresis as outpatient. He will need to follow-up with us as outpatient after discharge. Recheck renal function, volume status, acid-base and electrolyte again tomorrow. Urinary retention. The patient was also found to have acute urinary retention requiring Nicholas catheter placement. Renal ultrasound from 11/04/2023 did show mild bilateral hydronephrosis. The patient is currently on Flomax. Since he has VIRY with bilateral hydronephrosis, he probably should be sent home with Nicholas catheter with outpatient follow-up with urology. Hypertension. Holding chlorthalidone and benazepril because of VIRY. Continue on amlodipine. BP is controlled. Anemia. Patient has iron deficiency, add oral iron (2) Acute urinary retention: (3) HTN (hypertension):
[2023-11-08 20:00] VITALS: BP 175/82; PULSE 74; RESP 17; TEMP 36.3; O2SAT 97
[2023-11-08 20:58] VITALS: BP 175/82; PULSE 74
[2023-11-08] MEDS: hydrALAZINE 20 MG/ML Vial 10 MG IV (20:58)
[2023-11-08] MEDS: 0.9% Saline Lock 10 ML Syringe IV (20:59)
[2023-11-09] MEDS: oxyCODONE 5 MG Tablet PO ×2 (00:28→15:35)
[2023-11-09 02:15] VITALS: BP 174/76; PULSE 88; RESP 17; TEMP 36.3; O2SAT 94
[2023-11-09] MEDS: Gabapentin 300 MG Capsule PO ×3 (04:34→21:22)
[2023-11-09 04:37] VITALS: BP 172/74; PULSE 87
[2023-11-09] MEDS: hydrALAZINE 20 MG/ML Vial 10 MG IV (04:37)
[2023-11-09] MEDS: 0.9% Saline Lock 10 ML Syringe IV (04:38)
[2023-11-09 04:41] VITALS: BMI 22.3
[2023-11-09] MEDS: oxyCODONE CR 15 MG Tablet PO ×3 (04:51→21:22)
[2023-11-09 07:08] LABS: Absolute Lymphocyte Count 1.28 X10^3/uL (0.83-4.51); Absolute Neutrophil Count 5.6 X10^3/uL (2.0-7.7); Basophil# 0.03 X10^3/uL; Basophil% 0.4 % (0-1); Eosinophil# 0.33 X10^3/uL; Eosinophils% 4.1 % (0-5); Hematocrit 28.4 % (40-54); Hemoglobin 8.9 g/dL (13.0-16.5); Lymphocyte # 1.28 X10^3/ul (0.83-4.51); Mean Corp Hgb Conc 31.3 g/dL (32-36); Mean Corpuscular Hgb 28.7 pg (27.0-32.0); Mean Corpuscular Volume 91.6 fL (80-94); Mean Platelet Vol. 10.6 fl (6.2-12.0); Monocyte# 0.71 X10^3/uL; Monocyte% 8.9 % (0-10); NRBC Flagged by Analyzer 0 % (0-5); Neutrophil # 5.56 X10^3/uL (2.7-7.7); Neutrophil % 69.7 % (47-70); Platelet Count 215 K/mm3 (150-450); RBC Distribution Width SD 57.1 fl (35.1-43.9)
[2023-11-09 07:23] LABS: Anion Gap 8 (5-15); BUN 43 mg/dL (7-18); BUN/Creat Ratio 18.7 RATIO (10-20); Calcium,Total 8.4 mg/dL (8.5-10.1); Chloride 113 mmol/L (98-107); EST Glomerular Filtration Rate 30 mL/min (>60); Est Glom Filt Rate - Afr Amer 36 mL/min (>60); Estimated Creatinine Clearance 22.68 ml/min; Glucose 93 mg/dL (74-106); Potassium 4.8 mmol/L (3.5-5.1); Sodium Level 140 mmol/L (136-145)
[2023-11-09 08:15] VITALS: BP 111/52; PULSE 93; RESP 16; TEMP 36.2; O2SAT 97
[2023-11-09] MEDS: Clotrimazole/Betamethasone 1 Tube 1 APPLIC TOPICAL ×2 (08:48→21:22)
[2023-11-09] MEDS: Senna/Docusate Sodium 1 Tablet 2 TABLET PO ×2 (08:48→21:22)
[2023-11-09] MEDS: Aspirin 81 MG TAB.CHEW PO (08:48)
[2023-11-09] MEDS: Cyanocobalamin 500 MCG Tablet 1000 MCG PO (08:48)
[2023-11-09] MEDS: Menthol/Lanolin/Calamine/Znox 113 GM Tube 1 APPLIC TOPICAL ×2 (08:48→21:21)
[2023-11-09] MEDS: Ascorbic Acid 500 MG Tablet PO ×2 (08:48→16:53)
[2023-11-09] MEDS: NIFEdipine 60 MG Tablet PO (08:51)
[2023-11-09] MEDS: Ferrous Sulfate 325 MG Tablet PO (13:40)
[2023-11-09 14:15] VITALS: BP 145/62; PULSE 85; RESP 16; TEMP 36.2; O2SAT 98
--- NOTE | 2023-11-09 15:31 | PN.HOSP_ITS ---
Reason for Visit Reason for Visit: Diagnoses Essential (primary) hypertension (11/04/23) Acute kidney failure, unspecified (11/04/23) Other retention of urine (11/04/23) Objective Data Objective Data Vital Signs: Vital Signs Temp Pulse Resp BP Pulse Ox O2 Del Method 97.1 F L 93 16 111/52 L 97 Room Air 11/09/23 08:15 11/09/23 08:15 11/09/23 08:15 11/09/23 08:15 11/09/23 08:15 11/09/23 08:15 Oxygen Delivery Method Room Air Weight: 126 lb 3.2 oz Body Mass Index (BMI) 22.3 Intake & Output: Intake and Output for Last 24 Hours 11/07/23 11/08/23 11/09/23 23:59 23:59 23:59 Intake Total 730 / 730 570 / 570 Output Total 2125 / 2125 2075 / 2475 1300 / 1300 Balance -1395 / -1395 -1505 / -1905 -1300 / -1300 Lab / Micro Data 11/09/23 06:30 11/09/23 06:30 Labs: Laboratory Results - last 24 hr 11/09/23 06:30: WBC 8.0, RBC 3.10 L, Hgb 8.9 L, Hct 28.4 L, MCV 91.6, MCH 28.7, MCHC 31.3 L, RDW Std Deviation 57.1 H, RDW Coeff of [place] 17.0 H, Plt Count 215, MPV 10.6, Immature Gran % (Auto) 0.900, Neut % (Auto) 69.7, Lymph % (Auto) 16.0 L, [place] % (Auto) 8.9, Eos % (Auto) 4.1, Baso % (Auto) 0.4, Absolute Neuts (auto) 5.6, Absolute Lymphs (auto) 1.28, Nucleated RBC % 0, Sodium 140, Potassium 4.8, Chloride 113 H, Carbon Dioxide 19.0 L, Anion Gap 8, B UN 43 H, Creatinine 2.30 H, Estim Creat Clear Calc 22.68, Est GFR (MDRD) Af Amer 36 L, Est GFR (MDRD) Non-Af 30 L, BUN/Creatinine Ratio 18.7, Glucose 93, Calcium 8.4 L Physical Exam Narrative No acute issues. Patient has Díaz catheter clear urine.Pt is moving his bowel. No acute issues. Cr went up slightly. Seen and examined. General: Alert, Oriented x3, Cooperative HEENT: Atraumatic, PERRLA, EOMI, Normocephalic Oral: No Gingival or Mucosal Lesions/ Ulcerations Neck: Supple, No JVD, Negative Carotid Bruits Chest wall/Lungs: Air entry diminished in bilateral lung bases. No crepitation/rhonchi Cardiovascular: Regular rate, Regular Rhythm, Normal S1, Normal S2, No M/G/R Abdomen: Bowel Sounds Present, Soft, Non Tender, Non-Distended : No Díaz catheter. Clear urine renal angle tenderness. No suprapubic tenderness. Extremities: No edema, Capillary Refill Less than 3 Seconds Skin: Dry skin, whitish sticky scales, features of chronic dermatitis with skin thickening and hypertrophy getting better Musculoskeletal: No Tenderness to Palpation of Joints or Extremities. Bilateral knee arthritis Neurological: Cranial nerves II-XII grossly intact, DTR 2+/4. No acute focal neurological deficit. Psych/Mental Status: Flat affect Assessment & Plan Assessment/Plan (1) VIRY (acute kidney injury): PLAN: Plan Patient is a 73-year-old gentleman presenting with progressive generalized weakness and recurrent falls. Found to have acute urinary retention with VIRY admitted to monitored bed for further management 1. Acute kidney injury ? Suspected to be secondary to obstructive uropathy. Díaz catheter was placed in the ED admitted to monitored bed. Subsequent evaluation with renal ultrasound demonstrated mild bilateral hydronephrosis. Patient was placed on Flomax. Response to therapy being monitored with daily BMPs ? 11/05/2023. Slight improvement in kidney function repeat labs ordered for monitoring consult also placed to nephrology 11/05: Admitted with creatinine 3.4 to improved to 2.6. Last creatinine in system is December 2016 0.71. 11/06: Ultrasound kidneys and bladder reviewed. Mild bilateral hydronephrosis. Díaz catheter with mild dysuria during bladder. Patient on Flomax. Will need urology follow-up probably outpatient. PT and OT per 11/07: BUNs/creatinine gradual improvement but overall creatinine clearance remains similar 25 mill per minute 11/08: BUN/Cr 43/2.3, went up but has been as high recently. Meds reviewed, no obvious nephrotoxic meds or diurtics. Monitor Kidney function and electrolytes. 2. Recurrent falls ? Requested for PT OT eval and social security benefits interviewer to assist with discharge planning 3. Previous CVA with residual left-sided weakness ? CT of the brain obtained on admission did not show any acute intracranial abnormality. Patient is on antiplatelet therapy with aspirin did continue 4. Hypertension ? Blood pressure controlled, home medications continued with dose adjustment as needed 11/05: Blood pressure is elevated 191/76, 178/68. Antihypertensive medications uptitrated 11/06: Blood pressure is normal 124/61. 5. Tobacco dependence ? Counseled on cessation, offered nicotine patch for tobacco cravings 6. Anemia ? Secondary to chronic disorder ordered iron studies as well as B12 levels. Monitoring H&H and transfuse if patient becomes symptomatic or hemoglobin falls below 7 -11/05: Hemoglobin is low but no indication for transfusion.Admitted with creatinine 0.2, decreased to 8.7 11/06:H&H improving 9.3/30%. Iron study shows low serum iron, TIBC with iron saturation 13%. Overall suggestive of anemia of chronic disease. B12 383 low normal. 11/07: H&H 8.7/28.3%. Slight decrease. Patient not on anticoagulant but on baby aspirin. IV iron ordered 11/08: HH similiar to past few days. 7. Chronic pain syndrome ? Patient is on gabapentin as well as scheduled oxycodone continue 8. DVT prophylaxis ? SC heparin ? 11/05/2023; heparin was discontinued following drop in platelet counts 11/05: Bilateral SCDs 9. Physical deconditioning ? Requested for PT OT eval and social security benefits interviewer to assist with discharge planning 10. Chronic dermatitis, patient is chronic rash over both lower legs with skin/subcutaneous tissue hypertrophy and thickening. Betamethasone cream ordered. Already on Calmoseptine ointment Charges/Coding Visit Charges Inpatient E&M: 67146 Subs Hosp L2
[2023-11-09] MEDS: Tamsulosin HCl 0.4 MG Capsule PO (16:53)
[2023-11-09 20:00] VITALS: BP 145/64; PULSE 68; RESP 16; TEMP 36.6; O2SAT 98
[2023-11-10 02:00] VITALS: BP 144/60; PULSE 73; RESP 14; TEMP 36.4; O2SAT 96
[2023-11-10] MEDS: Gabapentin 300 MG Capsule PO ×2 (05:02→13:54)
[2023-11-10] MEDS: oxyCODONE CR 15 MG Tablet PO ×2 (05:02→13:54)
[2023-11-10 06:00] VITALS: BMI 23.1
[2023-11-10 07:26] LABS: Anion Gap 7 (5-15); BUN 44 mg/dL (7-18); Calcium,Total 8.7 mg/dL (8.5-10.1); Chloride 113 mmol/L (98-107); EST Glomerular Filtration Rate 33 mL/min (>60); Est Glom Filt Rate - Afr Amer 40 mL/min (>60); Estimated Creatinine Clearance 24.84 ml/min; Glucose 86 mg/dL (74-106); Potassium 4.9 mmol/L (3.5-5.1); Sodium Level 139 mmol/L (136-145)
--- NOTE | 2023-11-10 07:43 | CON.PCM.UR_ITS ---
Assessment & Plan Assessment/Plan (1) Bilateral hydronephrosis: PLAN: resolved with nicholas. (2) Acute urinary retention: PLAN: discharge with nicholas. he will need flomax in rehab can do voiding trial. HPI Consult Data Date of Consult: 11/10/23 HPI Narrative Reason for Consultation: urinary retention HPI Narrative: WIL ZEE, is a 73 M who presents in the hospital had retention of urine and b/l hydro, recent u/s with improvement in hydro. leave nicholas in and he is going to rehab, in rehab he can do some voiding trials. He does have some baseline dementia. [facility] Medical History Lymphedema Spinal stenosis Hyperlipidemia GERD (gastroesophageal reflux disease) Osteoarthritis Venous stasis dermatitis of both lower extremities Edema of left lower leg Edema of right lower leg Swelling of left lower extremity Swelling of right lower extremity History of pulmonary embolism SOB (shortness of breath) Morbid obesity HTN (hypertension) Pneumonia History of tobacco use Lung mass Pulmonary emboli Hemoptysis Home Medications ?Medication ?Instructions ?Recorded ?Last Taken ?Type albuterol sulfate 90 mcg/actuation 1 - 2 puff inhalation Q4H PRN 12/29/16 Unknown History aerosol inhaler SHORTNESS OF BREATH/WHEEZING aspirin 81 mg chewable tablet 81 mg PO DAILY HEART HEALTH 12/29/16 11/03/23 History dicyclomine 20 mg tablet 10 mg PO BID PRN IRRITABLE BOWELS 12/29/16 11/03/23 History lhvuegyi-kdk-ltvai acid 0.4 1 ea PO DAILY SUPPLEMENT 12/29/16 11/03/23 History mg-lycopene 300 mcg-lutein 250 mcg tablet oxycodone 15 mg tablet,crush 15 mg PO Q8H PAIN 12/29/16 11/03/23 History resistant,extended release 12 hr benazepril 40 mg tablet 40 mg PO DAILY BLOOD PRESSURE 05/19/23 11/03/23 History chlorthalidone 25 mg tablet 25 mg PO DAILY EDEMA 05/19/23 11/03/23 History gabapentin 300 mg capsule 300 mg PO 4X/DAY NEUROPATHY 11/04/23 11/03/23 History Allergy/AdvReac Type Severity Reaction Status Date / Time morphine (From Embeda) Allergy Other Verified 11/04/23 09:10 naltrexone (From Embeda) Allergy Other Verified 11/04/23 09:10 pregabalin (From Lyrica) Allergy Unknown Verified 11/04/23 09:10 acetaminophen (From Percocet) AdvReac Upset Verified 11/04/23 09:10 Stomach oxycodone (From Percocet) AdvReac Upset Verified 11/04/23 09:10 Stomach Family History Unknown No problems noted. Surgical History History of right knee surgery History of bilateral inguinal hernia repair R knee and leg surgery H/O hernia repair History of appendectomy Social History Smoking Status: Former smoker quit date: 06/15/02 pack-years: 60 Electronic Cigarette Use: not used second hand exposure: Yes alcohol intake: never substance use type: does not use ROS Constitutional Constitutional: Denies chills, fever(s) or malaise Eyes Eyes: Denies blurry vision or change in vision ENT HEENT: Reports none Cardiovascular Cardiovascular: Denies chest pain or palpitations Respiratory/Chest Respiratory/Chest: Denies cough or shortness of breath with exertion Gastrointestinal Gastrointestinal: Denies abdominal pain, constipation or diarrhea Musculoskeletal Musculoskeletal: Denies back pain, joint stiffness or joint swelling Integumentary Integumentary: Denies dry skin, jaundice, lesions or rash Neurologic Neurologic: Denies confusion, syncope or weakness Psychiatric Psychiatric: Reports none; Denies anxiety or depression Endocrine Endocrinology: Denies excessive sweating, fatigue or flushing Hematologic/Lymphatic Hematologic/Lymphatic: Denies anemia, easy bleeding or easy bruising Physical Exam Const alert and oriented x3 General Appearance: cooperative HEENT normocephalic, head/scalp atraumatic, EAC's normal and TM's normal bilaterally Eyes PERRL and EOMs intact bilaterally Pupil: sluggish Neck no lymphadenopathy, supple and no JVD General: trachea midline Lymph Lymphatic: no lymphadenopathy noted, lymphedema and lymphadenopathy Resp normal respiratory effort, normal air movement and clear to auscultation bilaterally Cardio regular rate, regular rhythm and peripheral pulses 2+ throughout GI soft to palpation, non-tender and non-distended Extremity normal capillary refill and no clubbing, cyanosis or edema General Extremity: no tenderness to palpation of joints or extremities Skin no rashes or lesions noted General Skin Exam: turgor normal Lesions: no lesions Rashes: no rashes Neuro CN's II-XII intact bilaterally Speech: speech normal Motor Exam: strength 5/5 throughout; Negative for general weakness Psych thought process normal, cooperative and affect normal Appearance: appropriate Lab / Micro Data 11/09/23 06:30 11/10/23 06:30 Labs: Laboratory Results - last 24 hr 11/10/23 06:30: Sodium 139, Potassium 4.9, Chloride 113 H, Carbon Dioxide 19.0 L , Anion Gap 7, BUN 44 H, Creatinine 2.10 H, Estim Creat Clear Calc 24.84, Est GFR (MDRD) Af Amer 40 L, Est GFR (MDRD) Non-Af 33 L, BUN/Creatinine Ratio 21.0 H , Glucose 86, Calcium 8.7
[2023-11-10 08:00] VITALS: BP 130/68; PULSE 84; RESP 16; TEMP 36.6; O2SAT 96
[2023-11-10] MEDS: Menthol/Lanolin/Calamine/Znox 113 GM Tube 1 APPLIC TOPICAL (08:19)
[2023-11-10] MEDS: Cyanocobalamin 500 MCG Tablet 1000 MCG PO (08:20)
[2023-11-10] MEDS: Aspirin 81 MG TAB.CHEW PO (08:20)
[2023-11-10] MEDS: Ascorbic Acid 500 MG Tablet PO (08:21)
[2023-11-10] MEDS: Senna/Docusate Sodium 1 Tablet 2 TABLET PO (08:23)
[2023-11-10] MEDS: Clotrimazole/Betamethasone 1 Tube 1 APPLIC TOPICAL (08:23)
[2023-11-10] MEDS: NIFEdipine 60 MG Tablet PO (08:23)
[2023-11-10] MEDS: oxyCODONE 5 MG Tablet PO (08:41)
--- NOTE | 2023-11-10 10:15 | PCM.TXEXTCAR ---
Diet Diet Order/Speech Therapy: 11/06/23 15:44 Diet: Regular - No Added Salt Food consistency:: Regular Liquid Consistency:: Regular/Thin Type of Dietary Supplement:: Ensure Compact Is pt able to select menu?: Yes Diet Comments: ensure compact w/ lunch and dinner meals Routine Orders/Code Status Suppository Type: Dulcolax 10mg Suppository Frequency: Daily PRN Wound(s) BLE: Wound Type: scattered scabs in various stages of healing Therapies Weight Bearing: Weight bearing as tolerated Extremity Affected:: Bilateral Lower Physical Therapy: Eval and Treat Occupational Therapy: Eval and Treat Speech Therapy: Eval and Treat Problem/Diagnosis (1) VIRY (acute kidney injury): Status: Acute Code(s): N17.9 - Acute kidney failure, unspecified Plan Patient is a 73-year-old gentleman presenting with progressive generalized weakness and recurrent falls. Found to have acute urinary retention with VIRY admitted to monitored bed for further management 1. Acute kidney injury ? Suspected to be secondary to obstructive uropathy. Díaz catheter was placed in the ED admitted to monitored bed. Subsequent evaluation with renal ultrasound demonstrated mild bilateral hydronephrosis. Patient was placed on Flomax. Response to therapy being monitored with daily BMPs ? 11/05/2023. Slight improvement in kidney function repeat labs ordered for monitoring consult also placed to nephrology 11/05: Admitted with creatinine 3.4 to improved to 2.6. Last creatinine in system is December 2016 0.71. 11/06: Ultrasound kidneys and bladder reviewed. Mild bilateral hydronephrosis. Díaz catheter with mild dysuria during bladder. Patient on Flomax. Will need urology follow-up probably outpatient. PT and OT per 11/07: BUNs/creatinine gradual improvement but overall creatinine clearance remains similar 25 mill per minute 11/08: BUN/Cr 43/2.3, went up but has been as high recently. Meds reviewed, no obvious nephrotoxic meds or diurtics. Monitor Kidney function and electrolytes. 11/09: BUNs/creatinine 40/2.1. It has been intermittent. 2.04-2.30. Patient evaluated by urologist and recommended discharge with Díaz catheter and can do spontaneous voiding trial in senior living. Follow-up in urology clinic. Patient being followed by preassembler and inspector. 2. Recurrent falls ? Requested for PT OT eval and social media marketer to assist with discharge planning 11/09: Pre-CERT pending. 3. Previous CVA with residual left-sided weakness ? CT of the brain obtained on admission did not show any acute intracranial abnormality. Patient is on antiplatelet therapy with aspirin did continue 4. Hypertension ? Blood pressure controlled, home medications continued with dose adjustment as needed 11/05: Blood pressure is elevated 191/76, 178/68. Antihypertensive medications uptitrated 11/06: Blood pressure is normal 124/61. 5. Tobacco dependence ? Counseled on cessation, offered nicotine patch for tobacco cravings 6. Anemia ? Secondary to chronic disorder ordered iron studies as well as B12 levels. Monitoring H&H and transfuse if patient becomes symptomatic or hemoglobin falls below 7 -11/05: Hemoglobin is low but no indication for transfusion.Admitted with creatinine 0.2, decreased to 8.7 11/06:H&H improving 9.3/30%. Iron study shows low serum iron, TIBC with iron saturation 13%. Overall suggestive of anemia of chronic disease. B12 383 low normal. 11/07: H&H 8.7/28.3%. Slight decrease. Patient not on anticoagulant but on baby aspirin. IV iron ordered 11/08: HH similiar to past few days. 7. Chronic pain syndrome ? Patient is on gabapentin as well as scheduled oxycodone continue 8. DVT prophylaxis ? SC heparin ? 11/05/2023; heparin was discontinued following drop in platelet counts 11/05: Bilateral SCDs 9. Physical deconditioning ? Requested for PT OT eval and social media marketer to assist with discharge planning 10. Chronic dermatitis, patient is chronic rash over both lower legs with skin/subcutaneous tissue hypertrophy and thickening. Betamethasone cream ordered. Already on Calmoseptine ointment Allergies/Procedures Done in Hospital Allergies morphine (From Embeda) Allergy (Verified 11/04/23 09:10) Other naltrexone (From Embeda) Allergy (Verified 11/04/23 09:10) Other pregabalin (From Lyrica) Allergy (Verified 11/04/23 09:10) Unknown acetaminophen (From Percocet) Adverse Reaction (Verified 11/04/23 09:10) Upset Stomach oxycodone (From Percocet) Adverse Reaction (Verified 11/04/23 09:10) Upset Stomach Type of Care/Length of Stay Estimated LOS: Convalescent Care Less Than 30 days Type of Care Needed: Skilled Rehab Potential: Good Prognosis: Good Additional Orders/Day of Discharge Day of Discharge: 11/10/23 Dietary and Speech Recommendations Dietitian Recommendations/Changes: Will change diet to cardiac/sodium-restricted; monitor need to restrict protein if renal labs increase. Will add ensure compact BID w/ lunch and dinner for now given fluctuating appetite at meals; d/c as indicated if PO remains good with meals. Discharge Plan Admission Admit Date/Time: 11/04/23 11:02 Primary Reason for Your Visit: VIRY from bilateral hydronephrosis Attending Provider: Alfonso Valentino Primary Care Provider: Enrico Fitch Consulting Providers: Phil Friend; Saman Izquierdo; Tam Lawrence Instructions Additional Instructions / Restrictions: Discharged with a Díaz catheter. Advised spontaneous voiding trial in about 3 to 4 days. Discharge Orders/Prescriptions Prescriptions: New ascorbic acid (vitamin C) 500 mg Tablet 500 mg PO BIDCM Qty: 0 0RF clotrimazole-betamethasone 1-0.05 % Cream 1 applic topical BID 7 Days Qty: 45 0RF Protocol: *Topical Application Instructions APPLICATION INSTRUCTIONS: On both lower legs. Rx Instructions: Apply cream lower legs for 1 week. cyanocobalamin (vitamin B-12) 500 mcg Tablet 1,000 mcg PO BREAKFAST Qty: 0 0RF ferrous sulfate [FeroSul] 325 mg (65 mg iron) Tablet 325 mg PO DAILY@1200 Qty: 0 0RF sennosides-docusate sodium [Stool Softener-Stimulant Laxat] 8.6-50 mg Tablet 2 tab PO BID Qty: 0 0RF nifedipine 60 mg Tablet Extended Release 24hr 60 mg PO DAILY Qty: 0 0RF tamsulosin 0.4 mg Capsule 0.4 mg PO DAILY@1730 Qty: 0 0RF Continued dicyclomine 20 MG tablet 10 mg PO BID PRN (Reason: IRRITABLE BOWELS ) aspirin 81 MG tablet,chewable 81 mg PO DAILY albuterol sulfate 1 INHALER inhaler 1 - 2 puff INHALATION Q4H PRN (Reason: SHORTNESS OF BREATH/WHEEZING ) rinckxun-kgv-UM-lycopen-lutein 1 EACH tablet 1 ea PO DAILY oxycodone 15 MG tablet 15 mg PO Q8H gabapentin 300 MG capsule 300 mg PO 4X/DAY Held chlorthalidone 25 mg tablet 25 mg PO DAILY Hold Instructions: Hold it until follow-up with neurologist. benazepril 40 mg tablet 40 mg PO DAILY Hold Instructions: Hold for 1 week, follow-up with the preassembler and inspector. Referrals / Follow Up: Enrico Fitch MD [Primary Care Provider] - Disposition Disposition (needs filled in before D/C Order can be placed): Group Home Facility
--- NOTE | 2023-11-10 11:04 | PCM.PN.REN ---
Subjective Subjective Following for VIRY. Patient denies current chest pain, shortness of breath, or nausea. Appetite is picking up. Objective Data Objective Data Vital Signs: Vital Signs Temp Pulse Resp BP Pulse Ox O2 Del Method 97.8 F 84 16 130/68 H 96 Room Air 11/10/23 08:00 11/10/23 08:00 11/10/23 08:00 11/10/23 08:00 11/10/23 08:00 11/10/23 08:00 Oxygen Delivery Method Room Air Weight: 59.2 kg Body Mass Index (BMI) 23.1 Intake & Output: Intake and Output for Last 24 Hours 11/08/23 11/09/23 11/10/23 23:59 23:59 23:59 Intake Total 570 / 570 120 / 120 Output Total 2075 / 2475 1700 / 1700 1150 / 1150 Balance -1505 / -1905 -1700 / -1580 -1030 / -1030 Lab / Micro Data 11/09/23 06:30 11/10/23 06:30 Labs: Laboratory Results - last 24 hr 11/10/23 06:30: Sodium 139, Potassium 4.9, Chloride 113 H, Carbon Dioxide 19.0 L, Anion Gap 7, BUN 44 H, Creatinine 2.10 H, Estim Creat Clear Calc 24.84, Est GFR (MDRD) Af Amer 40 L, Est GFR (MDRD) Non-Af 33 L, BUN/Creatinine Ratio 21.0 H, Glucose 86, Calcium 8.7 Physical Exam Narrative Alert awake oriented x 3 no obvious distress no pallor no icterus no JVD s1s2 no murmurs lungs clear abdomen soft no organomegaly no edema no cyanosis nicholas + Assessment & Plan Assessment/Plan (1) VIRY (acute kidney injury): PLAN: Impression/plan: The patient is a 73-year-old man with past history of stroke with residual left hemiparesis, hypertension, PE, GERD, osteoarthritis, and hyperlipidemia. Patient presented to hospital on 11/04/2023 with generalized weakness with recurrent fall. He was also found to have acute urinary retention. Nephrology is following for VIRY. Acute kidney injury. Reviewed available records from [facility]. Last known creatinine from [facility] is February 2023 and creatinine was normal at 0.90 mg/dL at that time. Serum creatinine was 3.42 mg/dL on 11/04/2023 on presentation. Suspect VIRY is secondary to ischemic ATN from volume depletion as well as obstructive VIRY from urinary retention (see below). Prior to admission, the patient was on chlorthalidone and benazepril. Renal function has improved overall since 11/04/2023. Creatinine is down to 2.04 mg/dL on 11/08/2023. In the past 3 days, serum creatinine has been between 2.04 up to 2.30 mg/dL. No need for dialysis or change in medical therapy therapy at this point. Continue Nicholas catheter. Keep MAP above 65 mmHg. Continue to hold off on restarting SAL inhibitor and chlorthalidone at least until creatinine nadirs. He does have slightly elevated protein gap in the setting of anemia. We can check serum protein electrophoresis as outpatient. He will need to follow-up with us as outpatient after discharge. Recheck renal function, volume status, acid-base and electrolyte again tomorrow. Urinary retention. The patient was also found to have acute urinary retention requiring Nicholas catheter placement. Renal ultrasound from 11/04/2023 did show mild bilateral hydronephrosis. The patient is currently on Flomax. Patient has been seen by urology. The patient will be discharged with Nicholas catheter with outpatient follow-up with urology. Hypertension. Holding chlorthalidone and benazepril because of VIRY. Continue on nifedipine. BP is relatively well controlled. Anemia. Patient has iron deficiency, continue oral iron. Will workup for paraprotein disease as outpatient if kidney function fails to improve further. (2) Acute urinary retention: (3) HTN (hypertension):
--- NOTE | 2023-11-10 11:10 | PN.HOSP_ITS ---
Reason for Visit Reason for Visit: Diagnoses Essential (primary) hypertension (11/04/23) Unspecified hydronephrosis (11/04/23) Acute kidney failure, unspecified (11/04/23) Other retention of urine (11/04/23) Objective Data Objective Data Vital Signs: Vital Signs Temp Pulse Resp BP Pulse Ox O2 Del Method 97.8 F 84 16 130/68 H 96 Room Air 11/10/23 08:00 11/10/23 08:00 11/10/23 08:00 11/10/23 08:00 11/10/23 08:00 11/10/23 08:00 Oxygen Delivery Method Room Air Weight: 130 lb 8.218 oz Body Mass Index (BMI) 23.1 Intake & Output: Intake and Output for Last 24 Hours 11/08/23 11/09/23 11/10/23 23:59 23:59 23:59 Intake Total 570 / 570 120 / 120 Output Total 2075 / 2475 1700 / 1700 1150 / 1150 Balance -1505 / -1905 -1700 / -1580 -1030 / -1030 Lab / Micro Data 11/09/23 06:30 11/10/23 06:30 Labs: Laboratory Results - last 24 hr 11/10/23 06:30: Sodium 139, Potassium 4.9, Chloride 113 H, Carbon Dioxide 19.0 L , Anion Gap 7, BUN 44 H, Creatinine 2.10 H, Estim Creat Clear Calc 24.84, Est GFR (MDRD) Af Amer 40 L, Est GFR (MDRD) Non-Af 33 L, BUN/Creatinine Ratio 21.0 H , Glucose 86, Calcium 8.7 Physical Exam Narrative No acute issues. Patient did not had bowel movement today. Discussed with the urologist. Patient has Díaz catheter clear urine. Seen and examined. General: Alert, Oriented x3, Cooperative HEENT: Atraumatic, PERRLA, EOMI, Normocephalic Oral: No Gingival or Mucosal Lesions/ Ulcerations Neck: Supple, No JVD, Negative Carotid Bruits Chest wall/Lungs: Air entry diminished in bilateral lung bases. No crepitation/rhonchi Cardiovascular: Sinus rhythm with PVCs normal S1, Normal S2, No M/G/R Abdomen: Bowel Sounds Present, Soft, Non Tender, Non-Distended : No Díaz catheter. Clear urine renal angle tenderness. No suprapubic tenderness. Extremities: No edema, Capillary Refill Less than 3 Seconds Skin: Dry skin, whitish sticky scales, features of chronic dermatitis with skin thickening and hypertrophy improved Musculoskeletal: No Tenderness to Palpation of Joints or Extremities. Bilateral knee arthritis Neurological: Cranial nerves II-XII grossly intact, DTR 2+/4. No acute focal neurological deficit. Psych/Mental Status: Flat affect Assessment & Plan Assessment/Plan (1) VIRY (acute kidney injury): PLAN: Plan Patient is a 73-year-old gentleman presenting with progressive generalized weakness and recurrent falls. Found to have acute urinary retention with VIRY admitted to monitored bed for further management 1. Acute kidney injury ? Suspected to be secondary to obstructive uropathy. Díaz catheter was placed in the ED admitted to monitored bed. Subsequent evaluation with renal ultrasound demonstrated mild bilateral hydronephrosis. Patient was placed on Flomax. Response to therapy being monitored with daily BMPs ? 11/05/2023. Slight improvement in kidney function repeat labs ordered for monitoring consult also placed to nephrology 11/05: Admitted with creatinine 3.4 to improved to 2.6. Last creatinine in system is December 2016 0.71. 11/06: Ultrasound kidneys and bladder reviewed. Mild bilateral hydronephrosis. Díaz catheter with mild dysuria during bladder. Patient on Flomax. Will need urology follow-up probably outpatient. PT and OT per 11/07: BUNs/creatinine gradual improvement but overall creatinine clearance remains similar 25 mill per minute 11/08: BUN/Cr 43/2.3, went up but has been as high recently. Meds reviewed, no obvious nephrotoxic meds or diurtics. Monitor Kidney function and electrolytes. 11/09: BUNs/creatinine 40/2.1. It has been intermittent. 2.04-2.30. Patient evaluated by urologist and recommended discharge with Díaz catheter and can do spontaneous voiding trial in assisted. Follow-up in urology clinic. Patient being followed by airport sales agent. 2. Recurrent falls ? Requested for PT OT eval and social sciences professor to assist with discharge planning 11/09: Pre-CERT pending. 3. Previous CVA with residual left-sided weakness ? CT of the brain obtained on admission did not show any acute intracranial abnormality. Patient is on antiplatelet therapy with aspirin did continue 4. Hypertension ? Blood pressure controlled, home medications continued with dose adjustment as needed 11/05: Blood pressure is elevated 191/76, 178/68. Antihypertensive medications uptitrated 11/06: Blood pressure is normal 124/61. 5. Tobacco dependence ? Counseled on cessation, offered nicotine patch for tobacco cravings 6. Anemia ? Secondary to chronic disorder ordered iron studies as well as B12 levels. Monitoring H&H and transfuse if patient becomes symptomatic or hemoglobin falls below 7 -11/05: Hemoglobin is low but no indication for transfusion.Admitted with creatinine 0.2, decreased to 8.7 11/06:H&H improving 9.3/30%. Iron study shows low serum iron, TIBC with iron saturation 13%. Overall suggestive of anemia of chronic disease. B12 383 low normal. 11/07: H&H 8.7/28.3%. Slight decrease. Patient not on anticoagulant but on baby aspirin. IV iron ordered 11/08: HH similiar to past few days. 7. Chronic pain syndrome ? Patient is on gabapentin as well as scheduled oxycodone continue 8. DVT prophylaxis ? SC heparin ? 11/05/2023; heparin was discontinued following drop in platelet counts 11/05: Bilateral SCDs 9. Physical deconditioning ? Requested for PT OT eval and social sciences professor to assist with discharge planning 10. Chronic dermatitis, patient is chronic rash over both lower legs with skin/subcutaneous tissue hypertrophy and thickening. Betamethasone cream ordered. Already on Calmoseptine ointment Charges/Coding Visit Charges Inpatient E&M: 82751 Subs Hosp L2
[2023-11-10] MEDS: Polyethylene Glycol 3350 17 GM PACKET PO (12:03)
[2023-11-10] MEDS: Ferrous Sulfate 325 MG Tablet PO (12:03)
--- NOTE | 2023-11-10 12:38 | CASEMGMT ---
Social Work As per admitting RN, pt does not have LW/POA and declined additional information. DEBRA Her
--- NOTE | 2023-11-10 13:45 | CASEMGMT ---
Patient was accepted in [facility]. SW went to patient's room to notify patient. However, patient was in the restroom. DARRIAN called patient's Arpita and let her know TCU can take patient and that patient will go today. Arpita thanked DARRIAN for the update. Kristen Hu MANAGEMENT LECTURER CHRISTEN
--- NOTE | 2023-11-10 14:13 | PCM.DC.SUM ---
Providers Date of Admission: 11/04/23 Date of Discharge: 11/10/23 Primary Care Physician: Dr. Enrico Fitch MD Consultations 11/05/23 07:42 Consult: Nephrology Routine Consulting Provider: Phil Friend Reason for Consult: VIRY EMERGENT Consult: No Notified: Yes Date Notified: 11/05/23 Time Notified: 07:42 Method of Notification: Answering Service 11/10/23 07:27 Consult: Urology Routine Consulting Provider: Tam Lawrence Reason for Consult: B/L Bhydronephrosis on Díaz EMERGENT Consult: No Notified: Yes Date Notified: 11/10/23 Time Notified: 07:27 Method of Notification: Text Reason For Visit: VIRY Diagnosis Discharge Diagnosis (1) VIRY (acute kidney injury): Status: Acute Code(s): N17.9 - Acute kidney failure, unspecified Plan Patient is a 73-year-old gentleman presenting with progressive generalized weakness and recurrent falls. Found to have acute urinary retention with VIRY admitted to monitored bed for further management 1. Acute kidney injury ? Suspected to be secondary to obstructive uropathy. Díaz catheter was placed in the ED admitted to monitored bed. Subsequent evaluation with renal ultrasound demonstrated mild bilateral hydronephrosis. Patient was placed on Flomax. Response to therapy being monitored with daily BMPs ? 11/05/2023. Slight improvement in kidney function repeat labs ordered for monitoring consult also placed to nephrology 11/05: Admitted with creatinine 3.4 to improved to 2.6. Last creatinine in system is December 2016 0.71. 11/06: Ultrasound kidneys and bladder reviewed. Mild bilateral hydronephrosis. Díaz catheter with mild dysuria during bladder. Patient on Flomax. Will need urology follow-up probably outpatient. PT and OT per 11/07: BUNs/creatinine gradual improvement but overall creatinine clearance remains similar 25 mill per minute 11/08: BUN/Cr 43/2.3, went up but has been as high recently. Meds reviewed, no obvious nephrotoxic meds or diurtics. Monitor Kidney function and electrolytes. 11/09: BUNs/creatinine 40/2.1. It has been intermittent. 2.04-2.30. Patient evaluated by urologist and recommended discharge with Díaz catheter and can do spontaneous voiding trial in half-way. Follow-up in urology clinic. Patient being followed by clinical associate. Pre-CERT obtained. Patient is being discharged to TCU. Follow-up with neurologist and neurologist outpatient. 2. Recurrent falls ? Requested for PT OT eval and school social worker to assist with discharge planning 11/09: Pre-CERT pending. 3. Previous CVA with residual left-sided weakness ? CT of the brain obtained on admission did not show any acute intracranial abnormality. Patient is on antiplatelet therapy with aspirin did continue 4. Hypertension ? Blood pressure controlled, home medications continued with dose adjustment as needed 11/05: Blood pressure is elevated 191/76, 178/68. Antihypertensive medications uptitrated 11/06: Blood pressure is normal 124/61. 11/09: Blood pressure is controlled. Hold nephrotoxic medications including benazepril and chlorthalidone and replaced with nifedipine. 5. Tobacco dependence ? Counseled on cessation, offered nicotine patch for tobacco cravings 6. Anemia ? Secondary to chronic disorder ordered iron studies as well as B12 levels. Monitoring H&H and transfuse if patient becomes symptomatic or hemoglobin falls below 7 -11/05: Hemoglobin is low but no indication for transfusion.Admitted with creatinine 0.2, decreased to 8.7 11/06:H&H improving 9.3/30%. Iron study shows low serum iron, TIBC with iron saturation 13%. Overall suggestive of anemia of chronic disease. B12 383 low normal. 11/07: H&H 8.7/28.3%. Slight decrease. Patient not on anticoagulant but on baby aspirin. IV iron ordered 11/08: HH similiar to past few days. 7. Chronic pain syndrome ? Patient is on gabapentin as well as scheduled oxycodone continue 8. DVT prophylaxis ? SC heparin ? 11/05/2023; heparin was discontinued following drop in platelet counts 11/05: Bilateral SCDs 9. Physical deconditioning ? Requested for PT OT eval and school social worker to assist with discharge planning 10. Chronic dermatitis, patient is chronic rash over both lower legs with skin/subcutaneous tissue hypertrophy and thickening. Betamethasone cream ordered. Already on Calmoseptine ointment Medications at Discharge Home Medications albuterol sulfate 90 mcg/actuation aerosol inhaler 1 - 2 puff inhalation Q4H PRN SHORTNESS OF BREATH/WHEEZING 12/29/16 aspirin 81 mg chewable tablet 81 mg PO DAILY HEART HEALTH 12/29/16 dicyclomine 20 mg tablet 10 mg PO BID PRN IRRITABLE BOWELS 12/29/16 amuryunl-wxg-jkwuy acid 0.4 mg-lycopene 300 mcg-lutein 250 mcg tablet 1 ea PO DAILY SUPPLEMENT 12/29/16 oxycodone 15 mg tablet,crush resistant,extended release 12 hr 15 mg PO Q8H PAIN 12/29/16 benazepril 40 mg tablet 40 mg PO DAILY BLOOD PRESSURE 05/19/23 chlorthalidone 25 mg tablet 25 mg PO DAILY EDEMA 05/19/23 gabapentin 300 mg capsule 300 mg PO 4X/DAY NEUROPATHY 11/04/23 ascorbic acid (vitamin C) 500 mg tablet 500 mg PO BIDCM #0 tabs 11/10/23 clotrimazole-betamethasone 1 %-0.05 % topical cream 1 applic topical BID 7 days #45 grams 11/10/23 cyanocobalamin (vitamin B-12) 500 mcg tablet 1,000 mcg (2 x 500 mcg) PO BREAKFAST #0 tabs 11/10/23 ferrous sulfate 325 mg (65 mg iron) tablet (FeroSul) 325 mg PO DAILY@1200 #0 tabs 11/10/23 nifedipine 60 mg tablet,extended release 24 hr 60 mg PO DAILY #0 tabs 11/10/23 sennosides 8.6 mg-docusate sodium 50 mg tablet (Stool Softener-Stimulant Laxative) 2 tab PO BID #0 tabs 11/10/23 tamsulosin 0.4 mg capsule 0.4 mg PO DAILY@1730 #0 caps 11/10/23 Physical Exam Narrative Please see exam finding on the progress note of the same date Weight / BMI Weight Weight: 130 lb 8.218 oz Body Mass Index (BMI) 23.1 ABG / Lab / Microbiology Data 11/09/23 06:30 11/10/23 06:30 Laboratory: Laboratory Results - last 24 hr 11/10/23 06:30: Sodium 139, Potassium 4.9, Chloride 113 H, Carbon Dioxide 19.0 L, Anion Gap 7, BUN 44 H, Creatinine 2.10 H, Estim Creat Clear Calc 24.84, Est GFR (MDRD) Af Amer 40 L, Est GFR (MDRD) Non-Af 33 L, BUN/Creatinine Ratio 21.0 H, Glucose 86, Calcium 8.7 Meaningful Use Info Meaningful Use Meaningful Use Diagnoses (Choose all that apply): None applicable Ischemic Stroke Statin Dosing Therapy Reference: STATIN DOSE THERAPY REFERENCE: * Patients > 75 years receive moderate or high dose statin therapy. * Patients 75 years or YOUNGER should receive HIGH intensity statin dose unless contraindicated. You will be required to document reason for non-treatment if statin daily dose does not meet guidelines. HIGH DOSE STATIN THERAPY DAILY Atorvastatin > than or = to 40 mg Rosuvastatin > than or = to 20 mg Amlodipine + Atorvastatin > than or = to 2.5/40 mg Ezetimibe + Simvastatin 10/80 mg Simvastatin 80mg Discharge Plan Admission Admit Date/Time: 11/04/23 11:02 Primary Reason for Your Visit: VIRY from bilateral hydronephrosis Attending Provider: Alfonso Valentino Primary Care Provider: Enrico Fitch Consulting Providers: Phil Friend; Saman Izquierdo; Tam Lawrence Instructions Additional Instructions / Restrictions: Discharged with a Díaz catheter. Advised spontaneous voiding trial in about 3 to 4 days. Discharge Orders/Prescriptions Prescriptions: New ascorbic acid (vitamin C) 500 mg Tablet 500 mg PO BIDCM Qty: 0 0RF clotrimazole-betamethasone 1-0.05 % Cream 1 applic topical BID 7 Days Qty: 45 0RF Protocol: *Topical Application Instructions APPLICATION INSTRUCTIONS: On both lower legs. Rx Instructions: Apply cream lower legs for 1 week. cyanocobalamin (vitamin B-12) 500 mcg Tablet 1,000 mcg PO BREAKFAST Qty: 0 0RF ferrous sulfate [FeroSul] 325 mg (65 mg iron) Tablet 325 mg PO DAILY@1200 Qty: 0 0RF sennosides-docusate sodium [Stool Softener-Stimulant Laxat] 8.6-50 mg Tablet 2 tab PO BID Qty: 0 0RF nifedipine 60 mg Tablet Extended Release 24hr 60 mg PO DAILY Qty: 0 0RF tamsulosin 0.4 mg Capsule 0.4 mg PO DAILY@1730 Qty: 0 0RF Continued dicyclomine 20 MG tablet 10 mg PO BID PRN (Reason: IRRITABLE BOWELS ) aspirin 81 MG tablet,chewable 81 mg PO DAILY albuterol sulfate 1 INHALER inhaler 1 - 2 puff INHALATION Q4H PRN (Reason: SHORTNESS OF BREATH/WHEEZING ) zyjrykjr-uph-FN-lycopen-lutein 1 EACH tablet 1 ea PO DAILY oxycodone 15 MG tablet 15 mg PO Q8H gabapentin 300 MG capsule 300 mg PO 4X/DAY Held chlorthalidone 25 mg tablet 25 mg PO DAILY Hold Instructions: Hold it until follow-up with neurologist. benazepril 40 mg tablet 40 mg PO DAILY Hold Instructions: Hold for 1 week, follow-up with the clinical associate. Referrals / Follow Up: Enrico Fitch MD [Primary Care Provider] - Phil Friend MD [Med Staff - Consulting] - Within 1 Month Tam Lawrence MD [Med Staff - Active Staff] - Within 2 Weeks Disposition Disposition (needs filled in before D/C Order can be placed): Intermediate Facility Charges/Coding Visit Charges Inpatient E&M: 79999 Disch Hosp >30min
== END 2023-11-10 15:35 | DRG 683 ==
LOC: ED 10:12 → PCU 11:08
PROVIDERS: Admitting Provider Internal Medicine; Emergency Provider Emergency Medicine; PCP Internal Medicine; Visit Provider Internal Medicine
DX: N17.0 Acute kidney failure with tubular necrosis (principal); I69.354 Hemiplegia and hemiparesis following cerebral infarction affecting left non-dominant side; D63.8 Anemia in other chronic diseases classified elsewhere; I10 Essential (primary) hypertension; E78.5 Hyperlipidemia, unspecified; L30.9 Dermatitis, unspecified; N13.30 Unspecified hydronephrosis; G89.4 Chronic pain syndrome; R29.6 Repeated falls; R53.81 Other malaise; Z79.82 Long term (current) use of aspirin; Z79.899 Other long term (current) drug therapy; Z87.891 Personal history of nicotine dependence
CPT/HCPCS: 36415; 51702; 70450; 71045; 76770; 80048; 80053; 81001; 82140; 82550; 82607; 83540; 83550; 85025; 85045; 94668; 97162; 97166; 97530; 97535; 99285; A4216; J2916

== ENCOUNTER 2023-11-10 15:50 | Inpatient (IN) | payer MEDICARE, OTHER, SELFPAY ==
[2023-11-10 15:59] VITALS: BP 155/66; PULSE 92; RESP 18; TEMP 36.4; O2SAT 98
[2023-11-10 16:10] VITALS: BMI 22.0
[2023-11-10] MEDS: Gabapentin 300 MG Capsule PO ×2 (18:02→22:03)
[2023-11-10] MEDS: Tamsulosin HCl 0.4 MG Capsule PO (18:03)
[2023-11-10] MEDS: Ascorbic Acid 500 MG Tablet PO (18:03)
[2023-11-10] MEDS: oxyCODONE CR 15 MG Tablet PO (22:03)
[2023-11-10] MEDS: Clotrimazole/Betamethasone 1 Tube 1 APPLIC TOPICAL (22:06)
--- NOTE | 2023-11-10 22:54 | HP.PCM_ITS ---
HPI - General General Date of Admission: 11/10/23 Date of Service: 11/10/23 Chief Complaint: Here for rehabilitation. HPI Narrative 11/04/2023 WIL ZEE, is a 73 Male who presents to [facility] ED falls. Increasing falls, 6 falls in 3-4 days. Lower lower extremity weakness, twitchy. Urinary frequency, bladderscan > 600ml, refuses nicholas catheter. Creatinine 3.42, BUN 70. Nicholas drained 800cc urine, CT brain negative. Chest X-ray negative, IV fluid 150cc/hour started. 11/04/2023 Admit [facility]. Renal ultrasound shows mild bilateral hydronephrosis. Flomax started. PT/OT Debility. 11/05/2023 Creatinine unchanged with IV fluid, Hemoglobin 8.2, consult Nephrology. 11/06/2023 Creatinine improved to 2.6, Blood pressure 191/76, Blood pressure medications increased. 11/07/2023 f/u Urology outpatient. BP 124/61. Hemoglobin 9.3. PT/OT Debility. 11/08/2023 BUN/Creatinine improved. IV iron for hemoglobin 8.7. Steroid cream for venous stasis dermatitis. 11/09/[address] Lawrence recommended voiding trials on TCU. 11/10/2023 Admit to TCU with debility, here for rehabilitation, strengthening, prior to discharge home with . [facility] Medical History Lymphedema Spinal stenosis Hyperlipidemia GERD (gastroesophageal reflux disease) Osteoarthritis Venous stasis dermatitis of both lower extremities Edema of left lower leg Edema of right lower leg Swelling of left lower extremity Swelling of right lower extremity History of pulmonary embolism SOB (shortness of breath) Morbid obesity HTN (hypertension) Pneumonia History of tobacco use Lung mass Pulmonary emboli Hemoptysis Home Medications ?Medication ?Instructions ?Recorded ?Last Taken ?Type albuterol sulfate 90 mcg/actuation 1 - 2 puff inhalation Q4H PRN 12/29/16 Unknown History aerosol inhaler SHORTNESS OF BREATH/WHEEZING aspirin 81 mg chewable tablet 81 mg PO DAILY HEART HEALTH 12/29/16 11/03/23 Hi story dicyclomine 20 mg tablet 10 mg PO BID PRN IRRITABLE BOWELS 12/29/16 11/03/23 History qapnuxbk-lta-qrbun acid 0.4 1 ea PO DAILY SUPPLEMENT 12/29/16 11/03/23 History mg-lycopene 300 mcg-lutein 250 mcg tablet oxycodone 15 mg tablet,crush 15 mg PO Q8H PAIN 12/29/16 11/03/23 History resistant,extended release 12 hr benazepril 40 mg tablet 40 mg PO DAILY BLOOD PRESSURE 05/19/23 11/03/23 History chlorthalidone 25 mg tablet 25 mg PO DAILY EDEMA 05/19/23 11/03/23 History gabapentin 300 mg capsule 300 mg PO 4X/DAY NEUROPATHY 11/04/23 11/03/23 History ascorbic acid (vitamin C) 500 mg 500 mg PO BIDCM supplement #0 tabs 11/10/23 Unknown Rx tablet clotrimazole-betamethasone 1 1 applic topical BID Rash BLE 7 11/10/23 Unknown Rx %-0.05 % topical cream days #45 grams cyanocobalamin (vitamin B-12) 500 1,000 mcg (2 x 500 mcg) PO 11/10/23 Unknown Rx mcg tablet BREAKFAST supplement #0 tabs ferrous sulfate 325 mg (65 mg 325 mg PO DAILY@1200 supplement #0 11/10/23 Unknown Rx iron) tablet (FeroSul) tabs nifedipine 60 mg tablet,extended 60 mg PO DAILY heart #0 tabs 11/10/23 Unknown Rx release 24 hr sennosides 8.6 mg-docusate sodium 2 tab PO BID stool softener #0 tabs 11/10/23 Unknown Rx 50 mg tablet (Stool Softener-Stimulant Laxative) tamsulosin 0.4 mg capsule 0.4 mg PO DAILY@1730 11/10/23 Unknown Rx bladder/urination #0 caps Allergy/AdvReac Type Severity Reaction Status Date / Time morphine (From Embeda) Allergy Other Verified 11/04/23 09:10 naltrexone (From Embeda) Allergy Other Verified 11/04/23 09:10 pregabalin (From Lyrica) Allergy Unknown Verified 11/04/23 09:10 acetaminophen (From Percocet) AdvReac Upset Verified 11/04/23 09:10 Stomach oxycodone (From Percocet) AdvReac Upset Verified 11/04/23 09:10 Stomach Family History Unknown No problems noted. Surgical History History of right knee surgery History of bilateral inguinal hernia repair R knee and leg surgery H/O hernia repair History of appendectomy Social History (Updated 11/10/23 @ 23:[address] Ray Chiu MD) household members: spouse Smoking Status: Former smoker quit date: 06/15/02 pack-years: 60 Electronic Cigarette Use: not used second hand exposure: Yes alcohol intake: never substance use type: does not use ROS Constitutional Constitutional: Denies chills, fever(s) or weight gain ENT HEENT: Denies headache(s), nasal congestion or nasal discharge Cardiovascular Cardiovascular: Denies chest pain or palpitations Respiratory/Chest Respiratory/Chest: Denies cough, excessive phlegm production or shortness of breath with exertion Gastrointestinal Gastrointestinal: Denies abdominal pain, nausea or vomiting Genitourinary Genitourinary: Denies dysuria Musculoskeletal Musculoskeletal: Denies joint pain or joint swelling Integumentary Integumentary: Denies rash or wounds Neurologic Neurologic: Denies focal weakness, numbness or tingling Psychiatric Psychiatric: Denies anxiety, auditory hallucinations, depression, homicidal ideation or suicidal ideation Vital Signs Vital Signs Vital Signs: 11/10/23 15:59 11/10/23 17:26 Temperature 97.6 F L Temperature Source Temporal Pulse Rate 92 Pulse Rhythm Regular Pulse Strength Normal (2+) Respiratory Rate 18 Respiratory Effort Normal Non-Labored Respiratory Depth Normal Respiratory Pattern Normal Blood Pressure 155/66 H Blood Pressure Mean 95 Blood Pressure Source Monitor Blood Pressure Position Semi-Fowlers Blood Pressure Location Right Arm Pulse Ox 98 Oxygen Delivery Method Room Air Room Air Weight Weight: 56.387 kg Body Mass Index (BMI) 22.0 Physical Exam Const alert General Appearance: cooperative HEENT normocephalic Eyes PERRL and EOMs intact bilaterally Neck supple, no JVD and no carotid bruits Resp normal respiratory effort, normal air movement and clear to auscultation bilaterally Cardio regular rate and regular rhythm GI normal to inspection, nondistended, normoactive bowel sounds, non-tender and non-distended Bladder / Kidney Exam: catheter in place urethral Extremity normal capillary refill General Extremity: Negative for edema Skin no rashes or lesions noted General Skin Exam: no breakdown Psych affect normal Appearance: appropriate Assessment & Plan Assessment/Plan (1) Debility: (2) Falls frequently: (3) Acute urinary retention: (4) Bilateral hydronephrosis: (5) VIRY (acute kidney injury): (6) Iron deficiency anemia: (7) Venous stasis dermatitis of both lower extremities: (8) Pulmonary emboli: (9) Essential (primary) hypertension: (10) GERD (gastroesophageal reflux disease): (11) Hyperlipidemia: (12) Lumbar spinal stenosis: (13) Spinal stenosis: (14) Stroke: PLAN: Plan 73 year old male with below past medical history hospitalized for falls, VIRY 2/2 urinary retention, complicated by bilateral mild hydronephrosis, iron deficiency anemia, admitted to TCU with debility, here for rehabilitation, strengthening, prior to discharge home with . * Debility - PT/OT. * Pain - Oxycontin 15mg q8. * Bowel - senna/colace 2 tablets bid. * Adult immunization - Administer pneumonia vaccine, covid vaccine, flu vaccine as appropriate. * DVT prophylaxis - Hold, anemia. * Shortness of breath - Albuterol 1-2 puff q4h prn. * Vitamin C deficiency - Vitamin C 500mg bidcm. * Stroke - Aspirin 81mg daily. * Hypertension - Nifedipine 60mg daily, Lisinopril 40mg daily, Chlorthalidone 25mg daily. * Venous stasis dermatitis - Lotrisone cream topical bid thru 11/17/2023. * B12 deficiency - B12 1000mcg daily * IBS - Bentyl 10mg bid prn. * Iron deficiency anemia - Ferrous sulfate 325mg daily. * Neuropathic pain - Gabapentin 300mg 4x/day. * Nutrition - MVI 1 tablet daily. * Urinary retention/BPH - Tamsulosin 0.4mg daily, voiding trials. * VIRY - consult Nephrology.
[2023-11-11 05:54] LABS: Absolute Lymphocyte Count 1.69 X10^3/uL (0.83-4.51); Absolute Neutrophil Count 5.6 X10^3/uL (2.0-7.7); Basophil# 0.05 X10^3/uL; Basophil% 0.6 % (0-1); Eosinophil# 0.36 X10^3/uL; Eosinophils% 4.3 % (0-5); Hematocrit 31.4 % (40-54); Hemoglobin 9.6 g/dL (13.0-16.5); Lymphocyte # 1.69 X10^3/ul (0.83-4.51); Mean Corp Hgb Conc 30.6 g/dL (32-36); Mean Corpuscular Hgb 28.4 pg (27.0-32.0); Mean Corpuscular Volume 92.9 fL (80-94); Mean Platelet Vol. 9.9 fl (6.2-12.0); Monocyte# 0.65 X10^3/uL; Monocyte% 7.7 % (0-10); NRBC Flagged by Analyzer 0 % (0-5); Neutrophil # 5.59 X10^3/uL (2.7-7.7); Neutrophil % 66.3 % (47-70); Platelet Count 222 K/mm3 (150-450); RBC Distribution Width CV 17.2 % (11.6-14.6); RBC Distribution Width SD 58.5 fl (35.1-43.9); Red Blood Count 3.38 M/mm3 (4.6-6.2); White Blood Count 8.4 K/mm3 (4.4-11.0)
[2023-11-11 06:17] LABS: Anion Gap 7 (5-15); BUN 52 mg/dL (7-18); BUN/Creat Ratio 23.6 RATIO (10-20); Chloride 112 mmol/L (98-107); EST Glomerular Filtration Rate 31 mL/min (>60); Est Glom Filt Rate - Afr Amer 38 mL/min (>60); Estimated Creatinine Clearance 23.49 ml/min; Glucose 99 mg/dL (74-106); Potassium 4.8 mmol/L (3.5-5.1); Sodium Level 139 mmol/L (136-145)
[2023-11-11] MEDS: oxyCODONE CR 15 MG Tablet PO ×3 (06:32→21:12)
[2023-11-11] MEDS: Ascorbic Acid 500 MG Tablet PO ×2 (08:03→16:49)
[2023-11-11] MEDS: Cyanocobalamin 500 MCG Tablet 1000 MCG PO (08:03)
[2023-11-11] MEDS: Aspirin 81 MG TAB.CHEW PO (08:03)
[2023-11-11] MEDS: Gabapentin 300 MG Capsule PO ×4 (08:03→21:12)
[2023-11-11] MEDS: Multivitamins,Ther W-Minerals Tablet 1 TABLET PO (08:03)
[2023-11-11] MEDS: NIFEdipine 60 MG Tablet PO (08:04)
[2023-11-11] MEDS: Clotrimazole/Betamethasone 1 Tube 1 APPLIC TOPICAL ×2 (08:04→21:13)
[2023-11-11] MEDS: Senna/Docusate Sodium 1 Tablet 2 TABLET PO ×2 (08:05→21:12)
[2023-11-11] MEDS: Tuberculin,Purif.prot.deriv. 50 TU/ML Vial 0.1 ML ID (10:35)
--- NOTE | 2023-11-11 10:58 | PHA.CONS_ITS ---
Documented by User: Bree Christian 11/11/23 11:24 TCU RX Drug Regimen Review Subjective/Objective Subjective/Objective: Subjective: TCU Admission. 73 YOM presented to the ER with a fall. Hospitalized for falls, VIRY 2/2 urinary retention, complicated by bilateral mild hydro nephrosis, iron deficiency anemia. Admitted to TCU with debility for strengthening and rehabilitation. Objective: Allergies morphine (From Embeda) Allergy (Verified 11/04/23 09:10) Other naltrexone (From Embeda) Allergy (Verified 11/04/23 09:10) Other pregabalin (From Lyrica) Allergy (Verified 11/04/23 09:10) Unknown acetaminophen (From Percocet) Adverse Reaction (Verified 11/04/23 09:10) Upset Stomach oxycodone (From Percocet) Adverse Reaction (Verified 11/04/23 09:10) Upset Stomach Current Medications Generic Name Dose Route Start Last Admin Trade Name Freq PRN Reason Stop Dose Admin Albuterol Sulfate 1 - 2 puff 11/10/23 16:26 Albuterol Ih (6.7 Gm) 1 Puff Inhaler INHALATION Q4H PRN SHORTNESS OF BREATH/WHEEZING Ascorbic Acid 500 mg 11/10/23 17:00 11/11/23 08:03 Ascorbic Acid 500 Mg Tablet PO 500 mg BIDCM VENU Administration Aspirin 81 mg 11/11/23 08:00 11/11/23 08:03 Aspirin 81 Mg Tab.Chew PO 81 mg BREAKFAST VENU Administration Chlorthalidone 25 mg 11/11/23 10:00 Chlorthalidone 50 Mg Tablet PO DAILY VENU Clotrimazole 1 applic 11/10/23 22:00 11/11/23 08:04 Clotrimazole/Betamethasone 1 Tube TOPICAL 11/17/23 22:01 1 applic BID VENU Administration Protocol Cyanocobalamin 1,000 mcg 11/11/23 08:00 11/11/23 08:03 Cyanocobalamin 500 Mcg Tablet PO 1,000 mcg BREAKFAST VENU Administration Dicyclomine HCl 10 mg 11/10/23 16:20 Dicyclomine 10 Mg Capsule PO BID PRN PRN IRRITABLE BOWELS Ferrous Sulfate 325 mg 11/11/23 12:00 Ferrous Sulfate 325 Mg Tablet PO LUNCH VENU Gabapentin 300 mg 11/10/23 17:00 11/11/23 08:03 Gabapentin 300 Mg Capsule PO 300 mg 4X/DAYCM VENU Administration Glycerin/Hypromellose/Polyethylene 2 drp 11/11/23 08:19 Glycerin/Hypromellose/Pfh608 15 Ml Bottle EACH EYE Q1H PRN DRY EYES Lisinopril 40 mg 11/11/23 10:00 Lisinopril 40 Mg Tablet PO DAILY VENU Multivitamins/Minerals 1 tablet 11/11/23 08:00 11/11/23 08:03 Multivitamins,Ther W-Minerals Tablet PO 1 tablet BREAKFAST VENU Administration Nifedipine 60 mg 11/11/23 10:00 11/11/23 08:04 Nifedipine 60 Mg Tablet PO 60 mg DAILY VENU Administration Protocol Oxycodone HCl 15 mg 11/10/23 22:00 11/11/23 06:32 Oxycodone Cr 15 Mg Tablet PO 15 mg Q8 VENU Administration Senna/Docusate Sodium 2 tablet 11/10/23 22:00 11/11/23 08:05 Senna/Docusate Sodium 1 Tablet PO 2 tablet BID VENU Administration Tamsulosin HCl 0.4 mg 11/10/23 17:30 11/10/23 18:03 Tamsulosin Hcl 0.4 Mg Capsule PO 0.4 mg DAILY@1730 VENU Administration Tuberculin PPD 0.1 ml 11/18/23 10:00 Tuberculin,Purif.Prot.Deriv. 50 Tu/Ml Vial ID 11/18/23 10:01 X1 ONE Problem List (Updated 11/10/23 @ 23:[address] Ray Chiu MD) Stroke (Acute) Lumbar spinal stenosis (Acute) Essential (primary) hypertension (Acute) Iron deficiency anemia (Acute) Debility (Acute) Falls frequently (Acute) Bilateral hydronephrosis (Acute) Acute urinary retention (Acute) VIRY (acute kidney injury) (Acute) Spinal stenosis (Acute) Hyperlipidemia (Acute) GERD (gastroesophageal reflux disease) (Acute) Venous stasis dermatitis of both lower extremities (Acute) Pulmonary emboli (Acute) Vital Signs Temp Pulse Resp BP Pulse Ox O2 Del Method 97.6 F L 92 18 155/66 H 98 Room Air 11/10/23 15:59 11/10/23 15:59 11/10/23 15:59 11/10/23 15:59 11/10/23 15:59 11/10/23 17:26 Oxygen Delivery Method Room Air Weight: 56.387 kg Body Mass Index (BMI) 22.0 Sodium 139 mmol/L (136-145) 11/11/23 05:24 Potassium 4.8 mmol/L (3.5-5.1) 11/11/23 05:24 Chloride 112 mmol/L (98-107) H 11/11/23 05:24 Carbon Dioxide 20.0 mmol/L (21.0-32.0) L 11/11/23 05:24 Anion Gap 7 (5-15) 11/11/23 05:24 BUN 52 mg/dL (7-18) H 11/11/23 05:24 Creatinine 2.20 mg/dL (0.70-1.30) H 11/11/23 05:24 Est GFR (MDRD) Af Amer 38 mL/min (>60) L 11/11/23 05:24 Est GFR (MDRD) Non-Af 31 mL/min (>60) L 11/11/23 05:24 BUN/Creatinine Ratio 23.6 RATIO (10-20) H 11/11/23 05:24 Glucose 99 mg/dL (74-106) 11/11/23 05:24 Assessment/Plan: 1. Pain: oxycodone CR 15mg PO Q8. Please continue to monitor for increased pain, confusion, constipation, falls/fractures (BEERs, admitted with a fall), respiratory depression (black box warning). 2. Bowel: senna/docusate 2T PO BID. Please continue to monitor for constipation (on scheduled oxycodone). Last documented bowel movement 11/08. 3. Hypertension: nifedipine 60mg PO daily, lisinopril 40mg PO daily (on hold due to VIRY), chlorthalidone 25mg PO daily (on hold due to VIRY). Please continue to monitor BP (last 155/66), HR (last 92) and renal function. 4. Stroke: aspirin 81mg PO DAILYCM. Please continue to monitor for S/S of bleeding/stroke and hemoglobin (last 9.6g/dL). 5. Iron deficiency anemia: ferrous sulfate 325mg PO daily. Please continue to monitor hemoglobin (last 9.6g/dL), constipation, iron studies (last 11/05/23) and dark stools. 6. IBS: dicyclomine 10mg PO BID PRN irritable bowels. No PRN doses have been given. Please continue to monitor for S/S of irritable bowels and PRN usage. 7. Urinary retention/BPH: tamsulosin 0.4mg PO daily. Please continue to monitor for S/S BPH and BP. 8. Shortness of breath: albuterol MDI 1-2 puffs inhalation Q4H PRN SOB/wheezing. No doses have been given so far. Please continue to monitor for SOB/wheezing and PRN usage. 9. Vitamin C/B12 deficiencies and nutrition: ascorbic acid 500mg PO BIDCM, cyanocobalamin 1000mcg PO daily and multivitamin with minerals 1T PO breakfast. Please continue to monitor B12 levels (last 11/05/23). 10. Venous stasis dermatitis: Lotrisone cream topical BID thru 11/17/23. Please continue to monitor for improvement. 11. Dry Eyes: artificial tears 2gtt OU Q1H PRN dry eyes. No doses have been given so far. Please continue to monitor for dry eyes and PRN usage. Assessment/Plan for indications treated with psychotropic medications: 1. Neuropathic pain: gabapentin 300mg PO 4x/day. Based on resident's renal function (CrCl 23mL/min), the max dose of gabapentin is 200-700mg once daily. Please consider changing the dose to avoid adverse effects. Thanks. Please continue to monitor for falls/fractures (BEERs medication), renal function and confusion. Medical chart and medication regimen reviewed. The following medication irregularities or issues were identified: 1. Gabapentin 300mg PO 4x/day. Based on resident's renal function (CrCl 23mL/min), the max dose of gabapentin is 200-700mg once daily. Please consider changing the dose to avoid adverse effects. Thanks. Date Date of Note:: 11/11/23 Documented by User: Dr. Ray Chiu MD 11/11/23 11:31 TCU RX Drug Regimen Review Provider Comments Provider responsibility Provider Comments to Recommendations by Pharmacy: Disagree: Define (Gabapentin chronic dose, resident tolerating. )
--- NOTE | 2023-11-11 11:52 | PN.RENAL_ITS ---
Subjective Subjective Following for VIRY on CKD Patient ambulating with walker with therapy. Significant other bedside. No complaints. Objective Data Objective Data Vital Signs: Vital Signs Temp Pulse Resp BP Pulse Ox O2 Del Method 97.6 F L 92 18 155/66 H 98 Room Air 11/10/23 15:59 11/10/23 15:59 11/10/23 15:59 11/10/23 15:59 11/10/23 15:59 11/10/23 17:26 Oxygen Delivery Method Room Air Weight: 56.387 kg Body Mass Index (BMI) 22.0 Intake & Output: Intake and Output for Last 24 Hours 11/09/23 11/10/23 11/11/23 23:59 23:59 23:59 Intake Total 120 / 120 360 / 360 Output Total 1800 / 1800 Balance 120 / 120 -1440 / -1440 Lab / Micro Data 11/11/23 05:24 11/11/23 05:24 Labs: Laboratory Results - last 24 hr 11/11/23 05:24: WBC 8.4, RBC 3.38 L, Hgb 9.6 L, Hct 31.4 L, MCV 92.9, MCH 28.4, MCHC 30.6 L, RDW Std Deviation 58.5 H, RDW Coeff of [place] 17.2 H, Plt Count 222, MPV 9.9, Immature Gran % (Auto) 1.100 H, Neut % (Auto) 66.3, Lymph % (Auto) 20.0, [place] % (Auto) 7.7, Eos % (Auto) 4.3, Baso % (Auto) 0.6, Absolute Neuts (auto) 5.6, Absolute Lymphs (auto) 1.69, Nucleated RBC % 0, Sodium 139, Potassium 4.8, Chloride 112 H, Carbon Dioxide 20.0 L, Anion Gap 7, BUN 52 H, C reatinine 2.20 H, Estim Creat Clear Calc 23.49, Est GFR (MDRD) Af Amer 38 L, Est GFR (MDRD) Non-Af 31 L, BUN/Creatinine Ratio 23.6 H, Glucose 99, Calcium 9.0 Physical Exam Narrative Alert and oriented x 3, no apparent stress S1, S2, RRR Lungs clear Abdomen soft, nontender No edema Indwelling Díaz with clear yellow urine in tubing and bag Assessment & Plan Assessment/Plan (1) VIRY (acute kidney injury): (2) Urinary retention: PLAN: Plan This is a pleasant 73-year-old male with a past medical history significant for hypertension, past history of stroke with residual left hemiparesis, GERD, osteoarthritis, hyperlipidemia whom we had been following when admitted to [facility] for VIRY. Patient was transferred to TCU for therapy 11/09. We are following patient while in TCU. -VIRY with normal baseline creatinine as of February 2023 (SCr 0.90mg/dL). VIRY felt to be secondary to ATN from volume depletion as well as a component from obstructive uropathy/urinary retention. Serum creatinine was 3.42 on admission 11/03 (this was peak). There had been daily slow improvement in renal function. Yesterday serum creatinine 2.10 and today creatinine is 2.20 mg/dL. Bicarb is 20, potassium normal. Volume status compensated. Patient is nonoliguric. Patient does not need daily labs for us. We will continue to follow patient and monitor renal function. Encouraged increase oral and solute intake. -Urinary retention; patient now has Díaz catheter. Renal ultrasound from 11/04/2023 did show mild bilateral hydronephrosis. Patient is on Flomax. Patient was seen by urology. Patient to be discharged to home with Díaz catheter in place and follow-up with urology -History of hypertension. Patient had been on chlorthalidone and Benazepril. These are on hold. Blood pressure is relatively controlled on nifedipine 60 mg daily. Recommend continue holding chlorthalidone and SAL inhibitor. -History of iron deficiency anemia on oral iron. Hemoglobin up to 9.6. Patient does not need daily lab work.
[2023-11-11] MEDS: Ferrous Sulfate 325 MG Tablet PO (12:17)
[2023-11-11 14:58] VITALS: BP 137/72; PULSE 85; RESP 18; TEMP 36.2; O2SAT 96
[2023-11-11] MEDS: Tamsulosin HCl 0.4 MG Capsule PO (16:49)
[2023-11-12] MEDS: oxyCODONE CR 15 MG Tablet PO ×3 (05:10→21:33)
[2023-11-12 08:49] VITALS: BP 131/59; PULSE 78; RESP 17; TEMP 36.5; O2SAT 96
[2023-11-12] MEDS: Aspirin 81 MG TAB.CHEW PO (08:49)
[2023-11-12] MEDS: Ascorbic Acid 500 MG Tablet PO ×2 (08:50→17:49)
[2023-11-12] MEDS: Senna/Docusate Sodium 1 Tablet 2 TABLET PO ×2 (08:50→21:33)
[2023-11-12] MEDS: Multivitamins,Ther W-Minerals Tablet 1 TABLET PO (08:50)
[2023-11-12] MEDS: Gabapentin 300 MG Capsule PO ×4 (08:50→21:33)
[2023-11-12] MEDS: NIFEdipine 60 MG Tablet PO (08:50)
[2023-11-12] MEDS: Ferrous Sulfate 325 MG Tablet PO (08:50)
[2023-11-12] MEDS: Cyanocobalamin 500 MCG Tablet 1000 MCG PO (08:50)
[2023-11-12] MEDS: Clotrimazole/Betamethasone 1 Tube 1 APPLIC TOPICAL ×2 (08:51→21:33)
--- NOTE | 2023-11-12 12:10 | NURSING ---
Clothing Examiner Note; Activity Asset: Stew Schaefer is independent in his choice of daily activities. His wishes are to stay in his room watch tv and rest when not in therapy. He stated he did not want visits from the therapy do or cnc supervisor the are not needed. Staff will continue to remind him of weekly activities, off room activities and respect his right o say no. Lul was in room during assessment and is aware of his wishes.
[2023-11-12] MEDS: Tamsulosin HCl 0.4 MG Capsule PO (17:49)
[2023-11-13] MEDS: oxyCODONE CR 15 MG Tablet PO ×3 (05:44→21:05)
[2023-11-13] MEDS: Gabapentin 300 MG Capsule PO ×4 (08:10→21:05)
[2023-11-13] MEDS: Ascorbic Acid 500 MG Tablet PO ×2 (08:10→17:02)
[2023-11-13] MEDS: Cyanocobalamin 500 MCG Tablet 1000 MCG PO (08:10)
[2023-11-13] MEDS: Aspirin 81 MG TAB.CHEW PO (08:10)
[2023-11-13] MEDS: Multivitamins,Ther W-Minerals Tablet 1 TABLET PO (08:10)
[2023-11-13] MEDS: NIFEdipine 60 MG Tablet PO (08:11)
[2023-11-13] MEDS: Senna/Docusate Sodium 1 Tablet 2 TABLET PO ×2 (08:11→21:05)
[2023-11-13] MEDS: Ferrous Sulfate 325 MG Tablet PO (12:00)
--- NOTE | 2023-11-13 14:44 | CASEMGMT ---
Social Work- TCU Admit Note BIM (02/27) SW met with patient at bedside to complete initial intake assessment. SW introduced self and role. Patient verified demographics and contact information. Patient reports that prior to admission, he was residing in home with his , Arpita on the main floor of a two story home. Patient reports recurrent falls in home due to left sided weakness. Patient informed SW that he has a history of a stroke. Patient confirmed code status as full code. Patient denied any history of Advanced Directive. Patient declined Advanced Directive booklet. The patient's next of kin is , Arpita. Patient was educated on Medicare benefits and coverage. Patient's goal is to return home with spouse when left side weakness improves. SW will continue to follow for discharge planning support. CHRSITEN Garcia
[2023-11-13 16:00] VITALS: BP 132/61; PULSE 75; RESP 16; TEMP 36.4; O2SAT 95
[2023-11-13] MEDS: Tamsulosin HCl 0.4 MG Capsule PO (17:02)
[2023-11-13] MEDS: Clotrimazole/Betamethasone 1 Tube 1 APPLIC TOPICAL (21:05)
[2023-11-14] MEDS: oxyCODONE CR 15 MG Tablet PO ×3 (06:09→22:29)
[2023-11-14] MEDS: Gabapentin 300 MG Capsule PO ×4 (07:55→22:28)
[2023-11-14] MEDS: Multivitamins,Ther W-Minerals Tablet 1 TABLET PO (07:56)
[2023-11-14] MEDS: Ascorbic Acid 500 MG Tablet PO ×2 (07:56→17:06)
[2023-11-14] MEDS: Aspirin 81 MG TAB.CHEW PO (07:56)
[2023-11-14] MEDS: Cyanocobalamin 500 MCG Tablet 1000 MCG PO (07:56)
[2023-11-14] MEDS: Senna/Docusate Sodium 1 Tablet 2 TABLET PO ×2 (10:49→22:29)
[2023-11-14] MEDS: NIFEdipine 60 MG Tablet PO (10:49)
[2023-11-14] MEDS: Clotrimazole/Betamethasone 1 Tube 1 APPLIC TOPICAL ×2 (10:50→22:29)
[2023-11-14] MEDS: Ferrous Sulfate 325 MG Tablet PO (12:11)
[2023-11-14 14:40] VITALS: BP 157/66; PULSE 67; RESP 14; TEMP 36.3; O2SAT 95
[2023-11-14] MEDS: Tamsulosin HCl 0.4 MG Capsule PO (17:06)
--- NOTE | 2023-11-14 17:13 | NURSING ---
per dry erase board and I&O in computer, pt has not had BM since arrival to this unit. Pt adamant that he had BM on 11/12. Senna on AUG. No other stooling agent on AUG at this time
[2023-11-15] MEDS: oxyCODONE CR 15 MG Tablet PO ×3 (06:02→21:09)
[2023-11-15 06:13] VITALS: BP 131/61; PULSE 65; RESP 14; TEMP 36.6; O2SAT 97
--- NOTE | 2023-11-15 06:26 | NURSING ---
Pt lungs clear bilaterally. Heartbeat regular with occasional irregular beat when pt is taking deep breath. Pt states he at times feels like his heart is racing or irregular. Skin warm and dry. VSS. Taken by Elizabeth BRITT. Denies any sob, nausea, chest pain or any other symptoms. Pt instructed to call if this occurs for him. Pt verbalizes understanding. Pt states it has been going on for awhile and he always forgets to tell the
--- NOTE | 2023-11-15 06:59 | NURSING ---
Pt stated this am that his heartbeat felt irregular. This nurse listened and it sounded regular. Vitals taken and were all within normal limits. Pt stated that this has beeen happening for quite some time and is nothing new. He denied SOB, chest pain, or feeling abnormal. RN was notified.
--- NOTE | 2023-11-15 08:01 | EKG12_ITS ---
Test Reason : PALPITATIONS Blood Pressure : / mmHG Vent. Rate : 071 BPM Atrial Rate : 071 BPM P-R Int : 166 ms QRS Dur : 080 ms QT Int : 360 ms P-R-T Axes : 046 -12 -10 degrees QTc Int : 391 ms Normal sinus rhythm Inferior infarct , age undetermined Anterior infarct , age undetermined Abnormal ECG Confirmed by CHAR HUTTON, LAUREN ([id number]), commercial production editor FARAZ BUCKLEY ([id number]) on 11/17/2023 6:12:29 AM Referred By: BRISEYDA BENSON Confirmed By:LAUREN PARDO MD
--- NOTE | 2023-11-15 08:02 | NURSING ---
Pt states he feels occasional irregular Heart beat. Pt states it has been occurring for a while now and is just now saying something. No other signs or symptoms noted. Upon listening heart sounds regular with occasional irregular beat. Dr. Chiu updated N.O. for EKG. Order read back.
[2023-11-15] MEDS: Gabapentin 300 MG Capsule PO ×4 (08:58→21:09)
[2023-11-15] MEDS: Cyanocobalamin 500 MCG Tablet 1000 MCG PO (08:59)
[2023-11-15] MEDS: Ascorbic Acid 500 MG Tablet PO ×2 (08:59→16:44)
[2023-11-15] MEDS: Aspirin 81 MG TAB.CHEW PO (08:59)
[2023-11-15] MEDS: Multivitamins,Ther W-Minerals Tablet 1 TABLET PO (08:59)
[2023-11-15] MEDS: Clotrimazole/Betamethasone 1 Tube 1 APPLIC TOPICAL ×2 (10:32→21:09)
[2023-11-15] MEDS: NIFEdipine 60 MG Tablet PO (10:32)
[2023-11-15] MEDS: Senna/Docusate Sodium 1 Tablet 2 TABLET PO ×2 (10:32→21:09)
[2023-11-15] MEDS: Ferrous Sulfate 325 MG Tablet PO (12:04)
[2023-11-15 15:01] VITALS: BP 146/60; PULSE 85; RESP 18; TEMP 36.3; O2SAT 96
[2023-11-15] MEDS: Tamsulosin HCl 0.4 MG Capsule PO (16:44)
--- NOTE | 2023-11-15 21:25 | NURSING ---
Dr. Chiu updated on EKG. No new orders at this time.
[2023-11-16] MEDS: oxyCODONE CR 15 MG Tablet PO ×3 (05:55→20:23)
[2023-11-16 09:15] VITALS: BP 132/58; PULSE 73; RESP 16; TEMP 36.6; O2SAT 94
[2023-11-16] MEDS: Gabapentin 300 MG Capsule PO ×4 (09:21→20:23)
[2023-11-16] MEDS: Cyanocobalamin 500 MCG Tablet 1000 MCG PO (09:21)
[2023-11-16] MEDS: Aspirin 81 MG TAB.CHEW PO (09:21)
[2023-11-16] MEDS: Multivitamins,Ther W-Minerals Tablet 1 TABLET PO (09:21)
[2023-11-16] MEDS: Albuterol IH (6.7 GM) 1 PUFF INHALER INHALATION (09:22)
[2023-11-16] MEDS: NIFEdipine 60 MG Tablet PO (09:23)
[2023-11-16] MEDS: Clotrimazole/Betamethasone 1 Tube 1 APPLIC TOPICAL ×2 (09:24→20:23)
[2023-11-16] MEDS: Ascorbic Acid 500 MG Tablet PO ×2 (11:45→17:22)
[2023-11-16] MEDS: Ferrous Sulfate 325 MG Tablet PO (11:45)
--- NOTE | 2023-11-16 11:52 | NURSING ---
Offered covid vaccine, VIS provided. Patient refuses at this time.
--- NOTE | 2023-11-16 14:15 | PCM.PN.REN ---
Subjective Subjective Resting in bed. Family at bedside. No complaints. Reports good appetite with no nausea or diarrhea. Has Díaz. Objective Data Objective Data Vital Signs: Vital Signs Temp Pulse Resp BP Pulse Ox O2 Del Method 97.8 F 73 16 132/58 H 94 Room Air 11/16/23 09:15 11/16/23 09:15 11/16/23 09:15 11/16/23 09:15 11/16/23 09:15 11/15/23 15:01 Oxygen Delivery Method Room Air Weight: 56.387 kg Body Mass Index (BMI) 22.0 Intake & Output: Intake and Output for Last 24 Hours 11/14/23 11/15/23 11/16/23 23:59 23:59 23:59 Intake Total 1340 / 1340 720 / 720 600 / 600 Output Total 2600 / 2600 1700 / 1700 900 / 900 Balance -1260 / -1260 -980 / -980 -300 / -300 Lab / Micro Data 11/11/23 05:24 11/11/23 05:24 Physical Exam Narrative Alert and oriented x 3, no apparent stress S1, S2, RRR Lungs clear Abdomen soft, nontender No edema Indwelling Díaz with clear yellow urine in tubing and bag Assessment & Plan Assessment/Plan (1) VIRY (acute kidney injury): (2) Urinary retention: PLAN: Plan This is a pleasant 73-year-old male with a past medical history significant for hypertension, past history of stroke with residual left hemiparesis, GERD, osteoarthritis, hyperlipidemia whom we had been following when admitted to [facility] for VIRY. Patient was transferred to TCU for therapy 11/09. We are following patient while in TCU. -VIRY with normal baseline creatinine as of February 2023 (SCr 0.90mg/dL). VIRY felt to be secondary to ATN from volume depletion as well as a component from obstructive uropathy/urinary retention. Serum creatinine was 3.42 on admission 11/03 (this was peak). There had been daily slow improvement in renal function. Last labs from 11/10 serum creatinine 2.20 mg/dL. Bicarb is 20, potassium normal. Volume status compensated. Patient is nonoliguric. Patient does not need daily labs for us. We will continue to follow patient and monitor renal function. Encouraged increase oral/protein intake. Labs ordered for morning -Urinary retention; patient now has Díaz catheter. Renal ultrasound from 11/04/2023 did show mild bilateral hydronephrosis. Patient is on Flomax. Patient was seen by urology. Patient to be discharged to home with Díaz catheter in place and follow-up with urology -History of hypertension. Patient had been on chlorthalidone and Benazepril. These are on hold. Blood pressure is relatively controlled on nifedipine 60 mg daily. Recommend continue holding chlorthalidone and SAL inhibitor. -History of iron deficiency anemia on oral iron. Hemoglobin up to 9.6. Patient does not need daily lab work.
[2023-11-16] MEDS: Tamsulosin HCl 0.4 MG Capsule PO (17:22)
--- NOTE | 2023-11-16 19:34 | NURSING ---
pt transferred self to bathroom without assistive device or non-skid socks. Education provided on importance of always having staff present and using call light for assistance. Also educated on importance of wearing non-skid socks and using assistive device.
[2023-11-16] MEDS: Senna/Docusate Sodium 1 Tablet 2 TABLET PO (20:23)
[2023-11-17] MEDS: oxyCODONE CR 15 MG Tablet PO ×3 (06:00→22:11)
[2023-11-17 06:30] LABS: Anion Gap 3 (5-15); BUN 61 mg/dL (7-18); BUN/Creat Ratio 28.5 RATIO (10-20); Calcium,Total 8.9 mg/dL (8.5-10.1); Chloride 113 mmol/L (98-107); Creatinine, Serum 2.14 mg/dL (0.70-1.30); EST Glomerular Filtration Rate 32 mL/min (>60); Est Glom Filt Rate - Afr Amer 39 mL/min (>60); Estimated Creatinine Clearance 24.15 ml/min; Glucose 112 mg/dL (74-106); Potassium 5.6 mmol/L (3.5-5.1); Sodium Level 138 mmol/L (136-145)
[2023-11-17] MEDS: Sodium Polystyrene Sulfonate 15 GM/60 ML UDC 30 GM PO (08:15)
--- NOTE | 2023-11-17 08:21 | NURSING ---
Pt's potassium-5.[address] Chiu entered new order for Sodium Polystyrene 30gm. Pt irritable with physician primary care sports medicine, but does consume full dose. Asymptomatic at this time.
[2023-11-17 10:56] VITALS: BP 144/57; PULSE 65; RESP 18; O2SAT 98
[2023-11-17] MEDS: Gabapentin 300 MG Capsule PO ×4 (10:57→22:11)
[2023-11-17] MEDS: Aspirin 81 MG TAB.CHEW PO (10:57)
[2023-11-17] MEDS: NIFEdipine 60 MG Tablet PO (10:58)
[2023-11-17] MEDS: Cyanocobalamin 500 MCG Tablet 1000 MCG PO (10:58)
[2023-11-17] MEDS: Multivitamins,Ther W-Minerals Tablet 1 TABLET PO (10:58)
[2023-11-17] MEDS: Ascorbic Acid 500 MG Tablet PO ×2 (10:58→18:55)
[2023-11-17] MEDS: Clotrimazole/Betamethasone 1 Tube 1 APPLIC TOPICAL ×2 (10:58→22:11)
[2023-11-17] MEDS: Ferrous Sulfate 325 MG Tablet PO (11:00)
[2023-11-17] MEDS: Dicyclomine 10 MG Capsule PO (12:49)
--- NOTE | 2023-11-17 14:43 | CASEMGMT ---
Social Work SW discussed patient case with therapy services. Patient declines to work with therapy. DARRIAN met with patient and , Arpita at bedside to discuss patient refusal for services. SW inquired about patients reason for denying therapy. Patient stated My left side is weak and it aint going to get any better. SW informed patient that therapy can provide support for improving safety and functioning. Patient's informed SW that she wants patient to remain on TCU for at least one more week for therapy. SW informed that the patient has been refusing to work with therapy; patient could get discharged for not complying with therapy services. Patient informed SW that he would like to discharge home because nothing will get better. Patient became frustrated with discussion and became verbally aggressive towards screaming woman you.... Patient requested SW leave room while patient speak with . SW refused. SW requested that step out of room with SW to deescalate potential verbal abuse. SW spoke with about concerns for verbal abuse. Patient's informed SW that the patient has been verbally aggressive. Arpita denies safety concerns. SW inquired about living situation. Arpita informed SW that she has been caring for the patient at home. 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 SW expressed concerns for patient functional ability due to failure to thrive status. Arpita inquired about potential for palliative care to be consulted due to patient functional decline. Arpita informed SW that the patient was functionally caring for self until 5 years ago. Per Arpita, the patient has been declining over the years and becoming more frustrated. Arpita informed SW that she wants patient to return home, but when he has functionally improved. Arpita informed DARRIAN that the patient has fallen multiple times in the home due to weakness. Arpita is concerned that the patient may become bed bound due to weakness. Arpita requested that SW discuss potential for therapy to work with patient again. Arpita informed SW that she has raised toilet set with rails in bathroom. Patient uses cane in home and sleeps in recliner. Patient has two steps to enter home. Arpita informed SW that she has transport wheelchair, but due to hallway size, patient is unable to utilize wheelchair in home. Arpita informed SW that the patient has had referral for home health care in the past, but she is concerned that the patient will continue to decline services in the home. During conversation, the patient was heard moving in the room. Bedside RN and Aid assisted patient to bathroom. OT was consulted to work with patient. OT met with patient at bedside to evaluate. OT And PT met with patient to evaluate for needs. Patient agreed to participate with therapy for evaluation. SW will continue to follow for support. CHRISTEN Garcia
--- NOTE | 2023-11-17 14:57 | NURSING ---
Per orders, Díaz catheter discontinued today. 10mL removed from balloon, catheter tip intact. Pt tolerated well. Orders entered for bladder scans q6hrs for 3 days.
[2023-11-17 15:12] VITALS: BMI 22.1
--- NOTE | 2023-11-17 18:20 | CASEMGMT ---
Social Work SW met with patient at bedside to complete MDS. Patient BIM () and PhQ-2 (). CHRISTEN Garcia
[2023-11-17] MEDS: Tamsulosin HCl 0.4 MG Capsule PO (18:55)
[2023-11-18] MEDS: oxyCODONE CR 15 MG Tablet PO ×3 (05:47→20:55)
[2023-11-18 05:54] LABS: Absolute Lymphocyte Count 1.34 X10^3/uL (0.83-4.51); Absolute Neutrophil Count 6.7 X10^3/uL (2.0-7.7); Basophil# 0.05 X10^3/uL; Basophil% 0.5 % (0-1); Eosinophils% 5.3 % (0-5); Hematocrit 30.1 % (40-54); Hemoglobin 9.2 g/dL (13.0-16.5); Lymphocyte # 1.34 X10^3/ul (0.83-4.51); Lymphocyte % 14.2 % (19-41); Mean Corp Hgb Conc 30.6 g/dL (32-36); Mean Platelet Vol. 10.2 fl (6.2-12.0); Monocyte# 0.73 X10^3/uL; Monocyte% 7.7 % (0-10); NRBC Flagged by Analyzer 0 % (0-5); Neutrophil # 6.65 X10^3/uL (2.7-7.7); Neutrophil % 70.5 % (47-70); Platelet Count 292 K/mm3 (150-450); RBC Distribution Width CV 17.6 % (11.6-14.6); RBC Distribution Width SD 61.4 fl (35.1-43.9); Red Blood Count 3.17 M/mm3 (4.6-6.2); White Blood Count 9.4 K/mm3 (4.4-11.0)
--- NOTE | 2023-11-18 08:35 | NURSING ---
Welding Equipment Repairer Supervisor Note; MDS for 11/17/2023 Complete
[2023-11-18] MEDS: Cyanocobalamin 500 MCG Tablet 1000 MCG PO (08:49)
[2023-11-18] MEDS: Aspirin 81 MG TAB.CHEW PO (08:49)
[2023-11-18] MEDS: NIFEdipine 60 MG Tablet PO (08:49)
[2023-11-18] MEDS: Ascorbic Acid 500 MG Tablet PO ×2 (08:49→17:27)
[2023-11-18] MEDS: Gabapentin 300 MG Capsule PO ×4 (08:49→20:55)
[2023-11-18] MEDS: Multivitamins,Ther W-Minerals Tablet 1 TABLET PO (08:49)
[2023-11-18 08:56] LABS: Anion Gap 5 (5-15); BUN 53 mg/dL (7-18); BUN/Creat Ratio 27.9 RATIO (10-20); Calcium,Total 8.6 mg/dL (8.5-10.1); Chloride 111 mmol/L (98-107); EST Glomerular Filtration Rate 37 mL/min (>60); Est Glom Filt Rate - Afr Amer 45 mL/min (>60); Estimated Creatinine Clearance 27.42 ml/min; Glucose 103 mg/dL (74-106); Potassium 4.9 mmol/L (3.5-5.1); Sodium Level 139 mmol/L (136-145)
[2023-11-18] MEDS: Tuberculin,Purif.prot.deriv. 50 TU/ML Vial 0.1 ML ID (10:25)
--- NOTE | 2023-11-18 13:06 | CASEMGMT ---
Addendum entered by Fernandez Higgins 11/18/23 18:25: SW [place] [facility] [place] Addendum entered by Fernandez Higgins 11/18/23 16:41: SW met with patient at bedside to complete Notice of Medicare Non-Coverage for current retirement services with end date: 11/20/2023; anticipated discharge on 11/21/2023 Patient is agreeable to discharge at this time. SW discussed palliative care services with patient's . Patient's requested to hold off on ordering palliative care at this time. Patient will be discharging home with ; NATHALIE SAL and BSC. Original Note: Social Work- Team Meeting IDT met with patient and , Arpita at bedside to complete care plans. Discussed patient progress with therapy PT/OT, dietary, and activities. Patient is contact guard bed mobility and transfers. Patient is min A with ambulation; 12-20ft with therapy. Therapy would like to continue to work with patient to continue strengthening and endurance. Therapy is recommending FWW to support ambulation. Patient's would like FWW and Bedside commode. Therapy is recommending home health care. SW discussed patient compliance with therapy. Patient informed SW that he does not need home health care; patient requested for to assist with care in home. Patient declined to continue therapy in TCU Rehab. Patient is requesting to discharge home. DARRIAN coordinated with family for patient to discharge on 11/20. Discharge Plan: Home with DME walker; BSC CHRISTEN Garcia
[2023-11-18] MEDS: Ferrous Sulfate 325 MG Tablet PO (13:19)
--- NOTE | 2023-11-18 17:19 | DS.PCM_ITS ---
Providers Date of Admission: 11/10/23 Primary Care Physician: Dr. Enrico Fitch MD Consultations 11/10/23 17:40 Consult: Nephrology Routine Consulting Provider: Alesia Estrella Reason for Consult: VIRY EMERGENT Consult: No Notified: No Date Notified: 11/10/23 Time Notified: 17:40 11/11/23 11:51 Consult: Nephrology Routine Consulting Provider: Marisa Michelle Reason for Consult: VIRY EMERGENT Consult: No Notified: Yes Date Notified: 11/11/23 Time Notified: 11:51 Method of Notification: Answering Service Reason For Visit: VIRY Diagnosis Discharge Diagnosis (1) VIRY (acute kidney injury): Status: Resolved Code(s): N17.9 - Acute kidney failure, unspecified (2) Urinary retention: Status: Acute Code(s): R33.9 - Retention of urine, unspecified Plan 73 year old male with below past medical history hospitalized for falls, VIRY 2/2 urinary retention, complicated by bilateral mild hydronephrosis, iron deficiency anemia, admitted to TCU with debility, here for rehabilitation, strengthening, prior to discharge home with . * Debility - PT/OT. * Pain - Oxycontin 15mg q8. * Bowel - senna/colace 2 tablets bid. * Adult immunization - Administer pneumonia vaccine, covid vaccine, flu vaccine as appropriate. * DVT prophylaxis - Hold, anemia. * Shortness of breath - Albuterol 1-2 puff q4h prn. * Vitamin C deficiency - Vitamin C 500mg bidcm. * Stroke - Aspirin 81mg daily. * Hypertension - Nifedipine 60mg daily, Lisinopril 40mg daily, Chlorthalidone 25mg daily. * Venous stasis dermatitis - Lotrisone cream topical bid thru 11/17/2023. * B12 deficiency - B12 1000mcg daily * IBS - Bentyl 10mg bid prn. * Iron deficiency anemia - Ferrous sulfate 325mg daily. * Neuropathic pain - Gabapentin 300mg 4x/day. * Nutrition - MVI 1 tablet daily. * Urinary retention/BPH - Tamsulosin 0.4mg daily, voiding trials. * VIRY - consult Nephrology. Medications at Discharge Home Medications albuterol sulfate 90 mcg/actuation aerosol inhaler 1 - 2 puff inhalation Q4H PRN SHORTNESS OF BREATH/WHEEZING 12/29/16 aspirin 81 mg chewable tablet 81 mg PO DAILY HEART HEALTH 12/29/16 dicyclomine 20 mg tablet 10 mg PO BID PRN IRRITABLE BOWELS 12/29/16 gtmdhmxz-dml-mdgcp acid 0.4 mg-lycopene 300 mcg-lutein 250 mcg tablet 1 ea PO DAILY SUPPLEMENT 12/29/16 oxycodone 15 mg tablet,crush resistant,extended release 12 hr 15 mg PO Q8H PAIN 12/29/16 benazepril 40 mg tablet 40 mg PO DAILY BLOOD PRESSURE 05/19/23 chlorthalidone 25 mg tablet 25 mg PO DAILY EDEMA 05/19/23 gabapentin 300 mg capsule 300 mg PO 4X/DAY NEUROPATHY 11/04/23 ascorbic acid (vitamin C) 500 mg tablet 500 mg PO BIDCM supplement #0 tabs 11/10/23 cyanocobalamin (vitamin B-12) 500 mcg tablet 1,000 mcg (2 x 500 mcg) PO BREAKFAST supplement #0 tabs 11/10/23 calcium carbonate 500 mg (2.5 x 200 mg calcium (500 mg)) PO Q4H PRN PRN Indigestion #0 tabs 11/18/23 ferrous sulfate 325 mg (65 mg iron) tablet (FeroSul) 325 mg PO LUNCH #30 tabs 11/18/23 nifedipine 60 mg tablet,extended release 24 hr 60 mg PO DAILY 30 days #30 tabs 11/18/23 tamsulosin 0.4 mg capsule 0.4 mg PO DAILY@1730 30 days #30 caps 11/18/23 Hospital Course Operations None Procedures None Summary of Care Provided Minutes Spent on Discharge: 35 Hospital Course: 73 year old male with below past medical history hospitalized for falls, VIRY 2/2 urinary retention, complicated by bilateral mild hydronephrosis, iron deficiency anemia, admitted to TCU with debility, here for rehabilitation, strengthening, prior to discharge home with . Discharge home with 11/21/2023, CHANNING walker, BSC. Walker: Patient is unsafe to use a cane and requires a walker for ambulation in the home and the community. BSC: Patient is unable to access bathroom safely and requires BSC. Physical Exam Const alert General Appearance: cooperative HEENT normocephalic Eyes PERRL and EOMs intact bilaterally Neck supple, no JVD and no carotid bruits Resp normal respiratory effort, normal air movement and clear to auscultation bilaterally Cardio regular rate and regular rhythm GI normal to inspection, nondistended, normoactive bowel sounds, non-tender and non-distended Extremity normal capillary refill General Extremity: Negative for edema Skin no rashes or lesions noted General Skin Exam: no breakdown Psych affect normal Appearance: appropriate Weight / BMI Weight Weight: 56.835 kg Body Mass Index (BMI) 22.1 ABG / Lab / Microbiology Data 11/18/23 05:18 11/18/23 05:18 Laboratory: Laboratory Results - last 24 hr 11/18/23 05:18: WBC 9.4, RBC 3.17 L, Hgb 9.2 L, Hct 30.1 L, MCV 95.0 H, MCH 29.0, MCHC 30.6 L, RDW Std Deviation 61.4 H, RDW Coeff of [place] 17.6 H, Plt Count 292, MPV 10.2, Immature Gran % (Auto) 1.800 H, Neut % (Auto) 70.5 H, Lymph % (Auto) 14.2 L, [place] % (Auto) 7.7, Eos % (Auto) 5.3 H, Baso % (Auto) 0.5, Absolute Neuts (auto) 6.7, Absolute Lymphs (auto) 1.34, Nucleated RBC % 0, Sodium 139, Potassium 4.9, Chloride 111 H, Carbon Dioxide 23.0, Anion Gap 5, BUN 53 H, Creatinine 1.90 H, Estim Creat Clear Calc 27.42, Est GFR (MDRD) Af Amer 45 L, Est GFR (MDRD) Non-Af 37 L, BUN/Creatinine Ratio 27.9 H, Glucose 103, Calcium 8.6 D/C Instructions Discharge Diet: No restrictions Discharge Activity: Return to Normal Activity, May Shower and Use Walker Weight Bearing Status: Weight bearing as tolerated Call your doctor if you observe: Fever of 101 or Higher, Inability to urinate, Inability to have a bowel movement, Shortness of breath, Dizziness, Fainting spells, Swelling in the ankles, Chest pain and Uncontrolled pain Additional Instructions: Discharge home with 11/21/2023, DME walker, BSC. Walker: Patient is unsafe to use a cane and requires a walker for ambulation in the home and the community. BSC: Patient is unable to access bathroom safely and requires BSC. Please Follow Up With: Tam Lawrence MD When: 4 weeks. Meaningful Use Info Meaningful Use Meaningful Use Diagnoses (Choose all that apply): None applicable Ischemic Stroke Statin Dosing Therapy Reference: STATIN DOSE THERAPY REFERENCE: * Patients > 75 years receive moderate or high dose statin therapy. * Patients 75 years or YOUNGER should receive HIGH intensity statin dose unless contraindicated. You will be required to document reason for non-treatment if statin daily dose does not meet guidelines. HIGH DOSE STATIN THERAPY DAILY Atorvastatin > than or = to 40 mg Rosuvastatin > than or = to 20 mg Amlodipine + Atorvastatin > than or = to 2.5/40 mg Ezetimibe + Simvastatin 10/80 mg Simvastatin 80mg Discharge Plan Admission Admit Date/Time: 11/10/23 15:50 Primary Reason for Your Visit: Debility. Attending Provider: Ray Chiu Chi Primary Care Provider: Enrico Fitch Consulting Providers: Marisa Michelle Instructions Additional Instructions / Restrictions: Discharge home with 11/21/2023, DME walker, BSC. Walker: Patient is unsafe to use a cane and requires a walker for ambulation in the home and the community. BSC: Patient is unable to access bathroom safely and requires BSC. Discharge Orders/Prescriptions Prescriptions: New calcium carbonate 200 mg calcium (500 mg) Tablet,Chewable 500 mg PO Q4H PRN PRN (Reason: Indigestion) Qty: 0 0RF ferrous sulfate [FeroSul] 325 mg (65 mg iron) Tablet 325 mg PO LUNCH Qty: 30 0RF nifedipine 60 mg Tablet Extended Release 24hr 60 mg PO DAILY 30 Days Qty: 30 0RF tamsulosin 0.4 mg Capsule 0.4 mg PO DAILY@1730 30 Days Qty: 30 0RF Continued dicyclomine 20 MG tablet 10 mg PO BID PRN (Reason: IRRITABLE BOWELS ) aspirin 81 MG tablet,chewable 81 mg PO DAILY albuterol sulfate 1 INHALER inhaler 1 - 2 puff INHALATION Q4H PRN (Reason: SHORTNESS OF BREATH/WHEEZING ) wolhkxws-wbi-JH-lycopen-lutein 1 EACH tablet 1 ea PO DAILY oxycodone 15 MG tablet 15 mg PO Q8H chlorthalidone 25 mg tablet 25 mg PO DAILY benazepril 40 mg tablet 40 mg PO DAILY gabapentin 300 MG capsule 300 mg PO 4X/DAY ascorbic acid (vitamin C) 500 mg Tablet 500 mg PO BIDCM Qty: 0 0RF cyanocobalamin (vitamin B-12) 500 mcg Tablet 1,000 mcg PO BREAKFAST Qty: 0 0RF Discontinued clotrimazole-betamethasone 1-0.05 % Cream 1 applic topical BID 7 Days Qty: 45 0RF Protocol: *Topical Application Instructions APPLICATION INSTRUCTIONS: On both lower legs. Rx Instructions: Apply cream lower legs for 1 week. ferrous sulfate [FeroSul] 325 mg (65 mg iron) Tablet 325 mg PO DAILY@1200 Qty: 0 0RF sennosides-docusate sodium [Stool Softener-Stimulant Laxat] 8.6-50 mg Tablet 2 tab PO BID Qty: 0 0RF nifedipine 60 mg Tablet Extended Release 24hr 60 mg PO DAILY Qty: 0 0RF tamsulosin 0.4 mg Capsule 0.4 mg PO DAILY@1730 Qty: 0 0RF Referrals / Follow Up: Enrico Fitch MD [Primary Care Provider] - ( will set this appointment up) Disposition Disposition (needs filled in before D/C Order can be placed): Home, Self Care
[2023-11-18] MEDS: Tamsulosin HCl 0.4 MG Capsule PO (17:27)
[2023-11-18] MEDS: oxyCODONE 5 MG Tablet 10 MG PO ×2 (18:13→22:55)
[2023-11-18 20:56] VITALS: BP 133/53; PULSE 71; RESP 16; TEMP 36.6; O2SAT 94
[2023-11-18 21:00] VITALS: PULSE 71; RESP 16
[2023-11-19] MEDS: oxyCODONE CR 15 MG Tablet PO ×3 (05:15→21:32)
[2023-11-19 08:20] LABS: Anion Gap 3 (5-15); BUN 49 mg/dL (7-18); Calcium,Total 8.8 mg/dL (8.5-10.1); Chloride 111 mmol/L (98-107); Creatinine, Serum 2.13 mg/dL (0.70-1.30); EST Glomerular Filtration Rate 32 mL/min (>60); Est Glom Filt Rate - Afr Amer 39 mL/min (>60); Estimated Creatinine Clearance 24.46 ml/min; Glucose 110 mg/dL (74-106); Potassium 4.9 mmol/L (3.5-5.1); Sodium Level 137 mmol/L (136-145)
[2023-11-19] MEDS: oxyCODONE 5 MG Tablet 10 MG PO (08:24)
[2023-11-19] MEDS: NIFEdipine 60 MG Tablet PO (08:25)
[2023-11-19] MEDS: Ascorbic Acid 500 MG Tablet PO ×2 (08:25→17:26)
[2023-11-19] MEDS: Multivitamins,Ther W-Minerals Tablet 1 TABLET PO (08:26)
[2023-11-19] MEDS: Cyanocobalamin 500 MCG Tablet 1000 MCG PO (08:26)
[2023-11-19] MEDS: Gabapentin 300 MG Capsule PO ×4 (08:26→21:32)
[2023-11-19] MEDS: Aspirin 81 MG TAB.CHEW PO (08:26)
[2023-11-19] MEDS: Ferrous Sulfate 325 MG Tablet PO (12:46)
[2023-11-19 13:23] VITALS: BP 153/75; PULSE 72; RESP 17; TEMP 37.1; O2SAT 92
--- NOTE | 2023-11-19 14:14 | NURSING ---
This nurse walked in patient's room to administer 2pm medications. Patient was walking beside bed without a walker with his s/o. Patient and family educated that patient cannot self transfer and needs to call for help. Patient agitated. S/O did not respond to education, but stated there was 120ml.
[2023-11-19] MEDS: Tamsulosin HCl 0.4 MG Capsule PO (17:26)
[2023-11-20] MEDS: oxyCODONE CR 15 MG Tablet PO ×3 (06:29→21:51)
--- NOTE | 2023-11-20 06:30 | NURSING ---
bladder scan 349 pre-void, patient states will attempt to use urinal here in a little bit, declines need for straight cath at this time
[2023-11-20 08:06] VITALS: BP 128/69; PULSE 84; RESP 16; TEMP 36.4; O2SAT 96
[2023-11-20] MEDS: Gabapentin 300 MG Capsule PO ×4 (08:07→21:51)
[2023-11-20] MEDS: Cyanocobalamin 500 MCG Tablet 1000 MCG PO (08:07)
[2023-11-20] MEDS: Multivitamins,Ther W-Minerals Tablet 1 TABLET PO (08:07)
[2023-11-20] MEDS: NIFEdipine 60 MG Tablet PO (08:08)
[2023-11-20] MEDS: Ascorbic Acid 500 MG Tablet PO ×2 (08:08→17:50)
[2023-11-20] MEDS: Aspirin 81 MG TAB.CHEW PO (08:08)
[2023-11-20] MEDS: oxyCODONE 5 MG Tablet 10 MG PO ×3 (08:10→17:50)
[2023-11-20] MEDS: Ferrous Sulfate 325 MG Tablet PO (12:29)
--- NOTE | 2023-11-20 12:58 | NURSING ---
Updated patient and (via phone) that a patient on the unit tested positive for covid.
--- NOTE | 2023-11-20 15:51 | CASEMGMT ---
Social Work SW met with patient at bedside to complete MDS. Patient BIM () and PhQ-2 () SW reviewed patient discharge. Patient anticipates discharge on 11/21/2023 to home with DME BSC and Walker delivered to home via [facility]. CHRISTEN Garcia
[2023-11-20] MEDS: Tamsulosin HCl 0.4 MG Capsule PO (17:50)
[2023-11-20 21:00] VITALS: PULSE 72; RESP 18; O2SAT 95
[2023-11-21] MEDS: oxyCODONE 5 MG Tablet 10 MG PO (04:10)
[2023-11-21 04:17] VITALS: PULSE 74; RESP 16; O2SAT 96
[2023-11-21] MEDS: oxyCODONE CR 15 MG Tablet PO ×2 (06:21→13:17)
[2023-11-21] MEDS: Gabapentin 300 MG Capsule PO ×2 (08:06→12:17)
[2023-11-21] MEDS: Ascorbic Acid 500 MG Tablet PO (08:06)
[2023-11-21] MEDS: Aspirin 81 MG TAB.CHEW PO (08:07)
[2023-11-21] MEDS: Cyanocobalamin 500 MCG Tablet 1000 MCG PO (08:07)
[2023-11-21] MEDS: Multivitamins,Ther W-Minerals Tablet 1 TABLET PO (08:07)
[2023-11-21] MEDS: Senna/Docusate Sodium 1 Tablet 2 TABLET PO (09:56)
[2023-11-21] MEDS: NIFEdipine 60 MG Tablet PO (09:56)
[2023-11-21] MEDS: Ferrous Sulfate 325 MG Tablet PO (12:17)
[2023-11-21 13:53] VITALS: BP 125/65; PULSE 75; RESP 16; TEMP 36.6; O2SAT 97
--- NOTE | 2023-11-23 11:01 | MDS.RN ---
Information for the MDS was obtained from review of the clinical record, interview of resident, staff, and direct observation of resident?s care
== END 2023-11-21 13:35 | disposition home or self-care (01) | DRG 725 ==
PROVIDERS: Nurse Practitioner Adult Health; Admitting Provider Family Medicine Geriatric Medicine; PCP Internal Medicine; Visit Provider Family Medicine Geriatric Medicine
DX: N40.1 Benign prostatic hyperplasia with lower urinary tract symptoms (principal); N17.0 Acute kidney failure with tubular necrosis; I69.354 Hemiplegia and hemiparesis following cerebral infarction affecting left non-dominant side; N13.30 Unspecified hydronephrosis; D50.9 Iron deficiency anemia, unspecified; I12.9 Hypertensive chronic kidney disease with stage 1 through stage 4 chronic kidney disease, or unspecified chronic kidney disease; N18.9 Chronic kidney disease, unspecified; M48.061 Spinal stenosis, lumbar region without neurogenic claudication; K21.9 Gastro-esophageal reflux disease without esophagitis; E53.8 Deficiency of other specified B group vitamins; G62.9 Polyneuropathy, unspecified; K58.9 Irritable bowel syndrome, unspecified; I87.2 Venous insufficiency (chronic) (peripheral); E78.5 Hyperlipidemia, unspecified; Z87.891 Personal history of nicotine dependence; R33.8 Other retention of urine; R29.6 Repeated falls; Z79.899 Other long term (current) drug therapy; Z79.82 Long term (current) use of aspirin; Z86.718 Personal history of other venous thrombosis and embolism
CPT/HCPCS: 36415; 80048; 85025; 87811; 93005; 97110; 97116; 97162; 97166; 97530; 97535; 97802

== ENCOUNTER → 2023-12-21 | Outpatient (CLI) | payer MEDICARE, OTHER, SELFPAY ==
[2023-12-21 12:41] LABS: PSA,Total - Annual Screen 1.74 ng/mL (0.00-4.00)
== END | disposition home or self-care (01) ==
LOC: LAB 11:46
PROVIDERS: PCP Internal Medicine; Referring Provider Nurse Practitioner; Visit Provider Nurse Practitioner
DX: Z12.5 Encounter for screening for malignant neoplasm of prostate (principal)
CPT/HCPCS: 36415; 84153; G0103

== ENCOUNTER → 2024-02-01 | Outpatient (CLI) | payer MEDICARE, OTHER, SELFPAY ==
[2024-02-01 11:45] LABS: Protein:Creat Ratio 1056 mg/g CRE (0-200)
[2024-02-01 11:57] LABS: Anion Gap 4 (5-15); BUN 24 mg/dL (7-18); BUN/Creat Ratio 13.6 RATIO (10-20); Calcium,Total 8.7 mg/dL (8.5-10.1); Chloride 111 mmol/L (98-107); Creatinine, Serum 1.76 mg/dL (0.70-1.30); EST Glomerular Filtration Rate 40 mL/min (>60); Est Glom Filt Rate - Afr Amer 49 mL/min (>60); Glucose 94 mg/dL (74-106); Potassium 3.5 mmol/L (3.5-5.1); Sodium Level 142 mmol/L (136-145)
[2024-02-02 15:09] LABS: PROEL- A/G Ratio 0.7 (0.7-1.7); PROEL- Albumin 3.1 g/dL (2.9-4.4); PROEL- Alpha-1 Globulin 0.4 g/dL (0.0-0.4); PROEL- Alpha-2 Globulin 0.9 g/dL (0.4-1.0); PROEL- Beta Globulin 1.1 g/dL (0.7-1.3); PROEL- Gamma Globulin 2.2 g/dL (0.4-1.8); PROEL- Globulin, Total 4.5 g/dL (2.2-3.9); PROEL- TOTAL PROTEIN 7.6 g/dL (6.0-8.5); PROEL-M-Spike Comment: g/dL (Not Observed)
== END | disposition home or self-care (01) ==
LOC: LAB 10:51
PROVIDERS: PCP Internal Medicine; Referring Provider Nurse Practitioner Adult Health; Visit Provider Nurse Practitioner Adult Health
DX: N17.9 Acute kidney failure, unspecified (principal)
CPT/HCPCS: 36415; 80048; 82570; 84156; 84165